=== PATIENT | female | born 1940 | race Caucasian/White ===

== ENCOUNTER 2016-11-30 20:22 | Outpatient (CLI) | payer MEDICARE ==
[~2016-11-30 20:22] MED LIST: ALPR0.254 PO; AMOX500C2 PO; ASP81TEC PO; ASPI-999 PO; BENA20TA72 PO; BETA15CR37 TOP; CALC-694 PO; CEPH500C; CLD600T PO; DCS100C PO; DIAZ2TAB2 PO; DIGO125T PO; DILT120C53 PO; DILT240C PO; DLT120CCR PO; DOXY100T2 PO; ENAL10TA PO; ENAL2.5T PO; ENAL20TA PO; FURO40TA4 PO; HCT25T PO; HYDR-1231 PO; KCL20TCR PO; LORA10TA7 PO; MECL-124 PO; METO100T5 PO; METO50TA2 PO; MULT-1029 PO; MULT-358 PO; ONDA4TAB11 PO; POLY17PO23 GT; POTA20TA15 PO; PRAV40TA2 PO; PRM25T PO; SERT25TA5 PO; SIMV40TA4 PO; TR1C15 TOP; TRAM50TA2 PO; TRAZ-28 PO; WRF2.5T PO
== END 2016-12-01 06:20 | disposition home or self-care (01) ==
LOC: SLEEP 20:22
PROVIDERS: ATTEND Nurse Practitioner Family
DX: G47.33 Obstructive sleep apnea (adult) (pediatric) (principal); G47.36 Sleep related hypoventilation in conditions classified elsewhere; I47.9 Paroxysmal tachycardia, unspecified
CPT/HCPCS: 95810

== ENCOUNTER 2017-03-10 12:39 | Emergency (ER) | payer MEDICARE ==
[~2017-03-10] VITALS: Ht 170.2 cm; Wt 78.5 kg
[2017-03-10] MEDS ORDERED: TETANUS,DIPTH,PERTUSS P/F (BOOSTRIX) 0.5 ML VIAL IM ONE (13:45)
--- NOTE | 2017-03-10 13:47 | ED Fall/Injury ---
General Chief Complaint: Trauma-Non Activation Stated Complaint: FELL,LT SHOULDER INJ,ARM ABRASION,HIT HEAD Nursing Triage Note: PT. WALKING DOG ET DOG BRUSHED AGAINST PT. PT. LOST BALANCE ET FELL ON CONCRETE. ABRASION NOTED ABOVE L-KNEE, SKIN TEAR TO L-FA. DRY DSG TO L-FA. BUMP. NOTED TO L-OCCIPITAL. PT. C/O L-SHOULDER PAIN. Source: patient Exam Limitations: no limitations History of Present Illness Time seen by provider: 13:44 Initial Comments To ER with reports of a fall. She was walking her dog when she tripped and fell landing on her left side. She did strike the left side of her head. There is a small hematoma to the left side of the occiput. No loss of consciousness. No headache nausea vomiting dizziness or vision changes. She reports pain to the area between the base of her neck and the left shoulder. There is no midline cervical spine pain. She has an abrasion to the left knee, skin tear to the left elbow. Tetanus is not up-to-date. No chest abdomen or pelvis injury Occurred: just prior to arrival Severity: mild Context: tripped Loss of Consciousness: no loss of consciousness Associated Symptoms (Fall): No Abdominal Pain, No Chest Pain, No Confusion, No Dizziness, No Headache, No Neck Pain Allergies and Home Medications Allergies Coded Allergies: tolmetin (Verified Allergy, Unknown, 08/19/15) Home Medications Alprazolam 0.25 Mg Tablet, 0.25 MG PO BID PRN for ANXIETY, (Reported) Aspirin 81 Mg Tab.chew, 81 MG PO DAILY, #90 Ref 3 Prescribed by: RUBI BERMUDEZ on 07/14/16 0959 Betamethasone/Propylene Glyc 15 Gm Cream..g., TOP BID PRN for ITCHING, (Reported ) Calcium Carbonate/Vitamin D3 1 Each Tablet, 1 TAB PO BID, (Reported) Diltiazem HCl 120 Mg Cap.er.24h, 120 MG PO DAILY, (Reported) Enalapril Maleate 20 Mg Tablet, 20 MG PO BID, (Reported) Furosemide 40 Mg Tablet, 40 MG PO DAILY, (Reported) Furosemide 40 Mg Tablet, 40 MG PO DAILY PRN for 2LB WEIGHT GAIN IN 24 HOURS, ( Reported) TAKES AN ADDITIONAL TABLET DAILY IF MORE THAN A 2 POUND WEIGHT GAIN IN A 24 HOURS PERIOD Loratadine 10 Mg Tablet, 10 MG PO DAILY, (Reported) Metoprolol Tartrate 50 Mg Tablet, 50 MG PO BID, (Reported) Mu-Vits-Min Th/Lycopene/Lutein 1 Each Tablet, 1 TAB PO DAILY, (Reported) Potassium Chloride 20 Meq Tab.er.prt, 20 MEQ PO BID, (Reported) Pravastatin Sodium 40 Mg Tablet, 40 MG PO HS, (Reported) Sertraline HCl 25 Mg Tablet, 25 MG PO DAILY, (Reported) Tramadol HCl 50 Mg Tablet, 50 MG PO BID PRN for PAIN, (Reported) Trazodone HCl 50 Mg Tablet, 25-50 MG PO HS PRN for SLEEP, (Reported) TAKES 1/2 TO 1 (50MG) TABLET Constitutional: see HPI Eyes: No Symptoms Reported Ears, Nose, Mouth, Throat: no symptoms reported Respiratory: no symptoms reported Cardiovascular: no symptoms reported Genitourinary: no symptoms reported Musculoskeletal: no symptoms reported Skin: no symptoms reported Psychiatric/Neurological: No Symptoms Reported Past Knkthpj-Qxqpid-Qivuyg Hx Patient Social History Alcohol Use: Denies Use Recreational Drug Use: No Smoking Status: Never a Smoker Recent Foreign Travel: No Contact w/Someone Who Travel: No Recent Infectious Disease Expo: No Recent Hopitalizations: Yes Immunizations Up To Date Tetanus Booster (TDap): Unknown PED Vaccines UTD: No Date of Pneumonia Vaccine: Apr 16, 2011 Date of Influenza Vaccine: May 04, 2016 Surgeries HX Surgeries: Yes (HYST,CHOLY) Surgeries: Gallbladder, Hysterectomy Respiratory Hx Respiratory Disorders: No Cardiovascular Hx Cardiac Disorders: Yes Cardiac Disorders: Atrial Fibrillation, Coronary Artery Disease Neurological Hx Neurological Disorders: No Reproductive System Hx Reproductive Disorders: No Sexually Transmitted Disease: No HIV/AIDS: No Genitourinary Hx Genitourinary Disorders: No Gastrointestinal Hx Gastrointestinal Disorders: No Musculoskeletal Hx Musculoskeletal Disorders: Yes Musculoskeletal Disorders: Chronic Back Pain Endocrine Hx Endocrine Disorders: No HEENT HX ENT Disorders: Yes HEENT Disorders: Cataract Cancer Hx Cancer: No Psychosocial Hx Psychiatric Problems: Yes Behavioral Health Disorders: Anxiety, Depression Integumentary HX Skin/Integumentary Disorder: No Blood Transfusions Hx Blood Disorders: No Adverse Reaction to a Blood Tr: No Family Medical History Significant Family History: No Pertinent Family Hx Family Medial History: Diabetes mellitus 19 MOTHER G8 BROTHER G8 SISTER G8 SISTER Physical Exam Vital Signs Vital Sign - Last 12Hours 03/10/17 12:50 Temp 97.9 Pulse 74 Resp 18 B/P (MAP) 161/77 Pulse Ox 97 O2 Delivery Room Air Capillary Refill : Less Than 3 Seconds General Appearance: WD/WN, no apparent distress, other (ambulatory to room 6) HEENT: PERRL/EOMI, normal ENT inspection Neck: non-tender, full range of motion Respiratory: no respiratory distress, no accessory muscle use Gastrointestinal: normal bowel sounds, non tender, soft Extremities: normal range of motion, non-tender Neurologic/Psychiatric: alert, normal mood/affect, oriented x 3 Skin: normal color, warm/dry, other (small nickel sized area of superficial skin tear to the left dorsal elbow. She maintains full active range of motion of the elbow without pain. No swelling or ecchymosis. Abrasion to the anterior left knee. Full range of motion of the knee without pain and full extension abilities.) Ken Coma Score Best Eye Response: (4) Open Spontaneously Best Verbal Response: (5) Oriented Best Motor Response: (6) Obeys Commands Ken Total: 15 Progress/Results/Core Measures Results/Orders My Orders Orders - SAMUEL DELCID APRN Shoulder, Left, 3 Views (03/10/17 13:43) Ct Head Wo (03/10/17 13:43) Dipht,Pertuss(Acell),Tet Adult (Boostrix (03/10/17 13:45) Medications Given in ED Current Medications Medications Dose Ordered Sig/Tc Route Start Time Stop Time Status Last Admin Dose Admin Diphtheria/ Tetanus/Acell Pertussis 0.5 ml ONCE ONCE IM 03/10/17 13:45 03/10/17 13:46 DC 03/10/17 14:51 0.5 ML Vital Signs/I&O Vital Sign - Last 12Hours 03/10/17 12:50 Temp 97.9 Pulse 74 Resp 18 B/P (MAP) 161/77 Pulse Ox 97 O2 Delivery Room Air Blood Pressure Mean: 105 Diagnostic Imaging Diagonstic Imaging: CT Comments NAME: FARSHAD JAIN [facility] REC#: [id number] PT STATUS: REG ER : 1940 PHYSICIAN: SAMUEL DELCID APRN ADMIT DATE: 03/10/17/ER Draft Date of Exam:08/09/17 CT HEAD WO INDICATION: Status post fall with head injury. Noncontrast brain CT is performed. There is a small amount of subarachnoid hemorrhage visualized over the left frontotemporal convexity, extending into the sylvian fissure. There is no subdural or epidural component. There is mild atrophic change. There is no midline shift or mass effect. Calvarial windows are unremarkable. IMPRESSION: Subarachnoid hemorrhage is visualized over the left frontotemporal region as above. There is no calvarial fracture. Report was faxed to the [facility], [place] ER at 3:23 p.m., by noris (for MK). Dictated on workstation # [id number] Dict: 03/10/17 1445 Trans: 03/10/17 1524 NORIS [id number] Interpreted by: SAMARA OATES MD Electronically signed by: Departure Communication Progress Notes [id number] did discuss the case with Dr. Mendoza. This treatment plan here is dependent upon her comfort level. This is not something she would operate on, typically management for this involves observation and repeat CT scan in about 12 hours to ensure stability or improvement in the size of the bleed. Given her injury that preceded this (being pulled over by her dog and striking her head on the concrete) is would support this subarachnoid to be traumatic in nature and not aneurysmal. Could be transferred later for any decline in neurologic function as she is currently with a GCS of 15, no headache nausea vomiting dizziness or vision changes. She is a little tired she states. I will discuss with trauma surgeon Dr. Luna [id number]-Dr Luna requests transfer to facility with Neuro services. Landon pending. Impression Impression: Primary Impression: Left subarachnoid hemorrhage Additional Impressions: Fall at home Scalp contusion Abrasion Disposition: 01 HOME, SELF-CARE Condition: Stable Departure-Patient Inst. Decision time for Depature: 13:47 Referrals: REY AGUILAR DO (PCP/Family) Primary Care Physician Patient Instructions: Contusion (DC) Add. Discharge Instructions: 1. Return to ER for any concerns 2. Follow-up with your doctor later this week for recheck 3. All discharge instructions reviewed with patient and/or family. Voiced understanding. SAMUEL DELCID APRN Mar 10, 2017 13:47
--- NOTE | 2017-03-10 14:24 | Diagnostic Imaging Report ---
Three views of the left shoulder. INDICATION: Fall. FINDINGS: There is no fracture, dislocation, or radiopaque foreign body. There is inferior osteophyte formation at the humeral head and small inferior osteophytes at the acromioclavicular joint. 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 Dictated by: Dictated on workstation # [id number]
--- NOTE | 2017-03-10 15:24 | Diagnostic Imaging Report ---
INDICATION: Status post fall with head injury. Noncontrast brain CT is performed. There is a small amount of subarachnoid hemorrhage visualized over the left frontotemporal convexity, extending into the sylvian fissure. There is no subdural or epidural component. There is mild atrophic change. There is no midline shift or mass effect. Calvarial windows are unremarkable. IMPRESSION: Subarachnoid hemorrhage is visualized over the left frontotemporal region as above. There is no calvarial fracture. Report was faxed to the [facility] ER at 3:23 p.m., by brant (for NEERU). Dictated by: Dictated on workstation # [id number]
[2017-03-10 16:46] VITALS: BP 157/71
== END 2017-03-10 16:46 | disposition home or self-care (01) ==
LOC: EDUNIT# 12:39 → ER 12:42
DX: S06.6X0A Traumatic subarachnoid hemorrhage without loss of consciousness, initial encounter (principal); S00.03XA Contusion of scalp, initial encounter; S80.212A Abrasion, left knee, initial encounter; S50.312A Abrasion of left elbow, initial encounter; F32.9 Major depressive disorder, single episode, unspecified; F41.9 Anxiety disorder, unspecified; I48.91 Unspecified atrial fibrillation; I25.10 Atherosclerotic heart disease of native coronary artery without angina pectoris; Z79.82 Long term (current) use of aspirin; Z90.49 Acquired absence of other specified parts of digestive tract; Z90.710 Acquired absence of both cervix and uterus; W01.198A Fall on same level from slipping, tripping and stumbling with subsequent striking against other object, initial encounter; Y93.K1 Activity, walking an animal
CPT/HCPCS: 70450; 73030; 90471; 90715

== ENCOUNTER → 2018-11-15 | Outpatient (CLI) | payer MEDICARE ==
[~2018-11-15] MED LIST changes: +METO50TA15 PO; -METO50TA2 PO; +TRAZ-189 PO; -TRAZ-28 PO
== END ==
LOC: CARD 09:43
PROVIDERS: ATTEND Nurse Practitioner Family
DX: R07.9 Chest pain, unspecified (principal); I25.10 Atherosclerotic heart disease of native coronary artery without angina pectoris; I48.91 Unspecified atrial fibrillation; I77.9 Disorder of arteries and arterioles, unspecified; E78.5 Hyperlipidemia, unspecified; I10 Essential (primary) hypertension; G47.33 Obstructive sleep apnea (adult) (pediatric)
CPT/HCPCS: 93225; 93226

== ENCOUNTER → 2018-11-29 | Outpatient (CLI) | payer MEDICARE ==
[~2018-11-29] VITALS: Ht 170.2 cm; Wt 78.9 kg
[~2018-11-29] MED LIST changes: +CATHETER FLUSH 10 ML SYR IV PRN; +REGADENOSON 0.4 MG/5 ML SYR (LEXISCAN) IV ONE
[2018-11-29 09:02] VITALS: BP 165/66
[2018-11-29 09:03] VITALS: BP 155/79
== END ==
LOC: CARD 07:09
PROVIDERS: ATTEND Nurse Practitioner Family
DX: R07.89 Other chest pain (principal); I25.10 Atherosclerotic heart disease of native coronary artery without angina pectoris; I48.0 Paroxysmal atrial fibrillation; I77.9 Disorder of arteries and arterioles, unspecified; E78.5 Hyperlipidemia, unspecified; I10 Essential (primary) hypertension; G47.33 Obstructive sleep apnea (adult) (pediatric)
CPT/HCPCS: 78452; 93017

== ENCOUNTER 2019-01-05 00:51 | Observation (INO) | payer MEDICARE ==
[~2019-01-05] VITALS: Ht 170.2 cm; Wt 78.0 kg
[2019-01-05] VITALS (9 sets, daily range): BP systolic 113–148; BP diastolic 42–72
[~2019-01-05 00:51] MED LIST changes: -CATHETER FLUSH 10 ML SYR IV PRN; -REGADENOSON 0.4 MG/5 ML SYR (LEXISCAN) IV ONE; -TRAZ-189 PO; +TRAZ-222 PO
[2019-01-05] MEDS ORDERED: ASPIRIN 81 MG CHEW (CHILDREN'S ASA) PO ONE (01:00)
--- OUTSIDE RECORDS SUMMARY | 2019-01-05 01:02 | XMS REPORT | Continuity of Care Document ---
Author Organization Unknown Address Unknown Allergies Active Description Code Type Severity Reaction Onset Reported/Identified Relationship to Patient Clinical Status Yes No Known Drug Allergies [id number] Drug Allergy Unknown N/A 10/11/2010 Yes tolmetin [id number] Drug Allergy Unknown N/A 08/19/2015 Medications There is no data. Problems Date Dx Coded Attending Type Code Diagnosis Diagnosed By 10/11/2010 Ot 386.11 10/11/2010 Ot 780.4 10/22/2010 Ot 401.9 10/22/2010 Ot 873.41 10/22/2010 Ot 959.01 10/22/2010 Ot E000.8 10/22/2010 Ot E849.8 10/22/2010 Ot E888.1 10/22/2010 Ot V06.1 09/06/2011 Ot 920 CONTUSION FACE/SCALP/NCK 09/06/2011 Ot 959.01 HEAD INJURY, NOS 09/06/2011 Ot E000.0 CIVILIAN ACTIVITY DONE FOR INCOME OR PAY 09/06/2011 Ot E849.7 ACCID IN RESIDENT INSTIT 09/06/2011 Ot E888.1 FALL STRIKING OBJECT NEC 11/02/2011 Ot 272.4 HYPERLIPIDEMIA NEC/NOS 11/02/2011 Ot 276.8 HYPOPOTASSEMIA 11/02/2011 Ot 401.9 HYPERTENSION NOS 11/02/2011 Ot 427.31 ATRIAL FIBRILLATION 11/02/2011 Ot 427.32 ATRIAL FLUTTER 11/02/2011 Ot 427.89 CARDIAC DYSRHYTHMIAS NEC 11/02/2011 Ot 719.41 JOINT PAIN-SHLDER 11/02/2011 Ot 786.50 CHEST PAIN NOS 12/07/2011 Ot 427.31 ATRIAL FIBRILLATION 12/07/2011 Ot V58.61 ANTICOAGULANTS,LT,CURRENT USE 02/04/2012 Ot 427.31 ATRIAL FIBRILLATION 05/08/2012 Ot 427.31 ATRIAL FIBRILLATION 03/30/2013 SHAWN DEL TORO Ot 427.31 ATRIAL FIBRILLATION 03/30/2013 SHAWN DEL TORO Ot 785.1 PALPITATIONS 01/02/2014 SAMUEL DELCID CALIBRATION TESTER Ot 802.0 NASAL BONE FX-CLOSED 01/02/2014 SAMUEL DELCID CALIBRATION TESTER Ot E029.9 OTHER ACTIVITY 01/02/2014 SAMUEL DELCID CALIBRATION TESTER Ot E849.0 ACCIDENT IN HOME 01/02/2014 SAMUEL DELCID CALIBRATION TESTER Ot E884.9 FALL-1 LEVEL TO OTH NEC 05/04/2014 SAMUEL DELCID CALIBRATION TESTER Ot 401.9 HYPERTENSION NOS 05/04/2014 SAMUEL DELCID CALIBRATION TESTER Ot 780.99 OTHER GENERAL SYMPTOMS NOS 11/01/2014 Ot 401.9 11/01/2014 Ot 427.31 11/01/2014 Ot 780.79 11/01/2014 Ot 786.05 11/05/2014 Ot 427.31 11/05/2014 Ot 427.31 11/05/2014 Ot 785.1 11/05/2014 KATEY GERARDO, BECKY Gu Ot 786.50 CHEST PAIN NOS 12/29/2014 REY AGUILAR DO Ot 785.6 12/29/2014 REY AGUILAR DO Ot 786.6 01/16/2015 REY AGUILAR DO Ot 785.6 01/16/2015 REY AGUILAR DO Ot 786.6 05/07/2015 Ot 401.9 05/07/2015 Ot 427.31 05/07/2015 Ot 782.3 05/07/2015 Ot 780.79 05/07/2015 Ot 787.02 05/07/2015 Ot 429.9 05/07/2015 Ot V58.69 05/07/2015 Ot 793.82 05/07/2015 Ot V76.12 05/07/2015 Ot 427.31 05/07/2015 Ot 427.31 05/07/2015 Ot 785.1 05/07/2015 Ot 401.9 05/07/2015 Ot 427.31 05/07/2015 Ot 780.79 05/07/2015 Ot 786.05 05/07/2015 REY AGUILAR DO Ot 785.6 05/07/2015 REY AGUILAR DO Ot 786.6 05/28/2015 REY AGUILAR DO Ot R07.9 08/19/2015 Ot 427.31 08/19/2015 Ot 427.31 08/19/2015 Ot 785.1 08/21/2015 GELLENDER DO, REY Gu Ot D72.829 08/21/2015 GELLENDER DO, REY Gu Ot I25.10 08/21/2015 GELLENDER DO, REY A Ot I48.91 08/21/2015 GELLENDER DO, REY Gu Ot L03.115 08/21/2015 GELLENDER DO, REY A Ot N39.0 08/26/2015 GELLENDER DO, REY A Ot B35.1 08/26/2015 GELLENDER DO, REY Gu Ot D72.829 08/26/2015 GELLENDER DO, REY A Ot G62.9 08/26/2015 GELLENDER DO, REY A Ot I10 08/26/2015 GELLENDER DO, REY A Ot I25.10 08/26/2015 GELLENDER DO, REY Gu Ot I48.91 08/26/2015 GELLENDER DO, REY Gu Ot L03.115 08/26/2015 GELLENDER DO, REY Gu Ot M20.40 08/26/2015 GELLENDER DO, REY Gu Ot N39.0 08/26/2015 GELLENDER DO, REY A Ot B35.1 08/26/2015 GELLENDER DO, REY A Ot D72.829 08/26/2015 GELLENDER DO, REY A Ot G62.9 08/26/2015 GELLENDER DO, REY Gu Ot I10 08/26/2015 GELLENDER DO, REY Gu Ot I25.10 08/26/2015 GELLENDER DO, REY A Ot I48.91 08/26/2015 GELLENDER DO, REY A Ot L03.115 08/26/2015 GELLENDER DO, REY Gu Ot M20.40 08/26/2015 GELLENDER DO, REY A Ot N39.0 08/26/2015 GELLENDER DO, REY A Ot B35.1 08/26/2015 GELLENDER DO, REY A Ot D72.829 08/26/2015 GELLENDER DO, REY A Ot G62.9 08/26/2015 GELLENDER DO, REY A Ot I10 08/26/2015 GELLENDER DO, REY A Ot I25.10 08/26/2015 GELLENDER DO, REY A Ot I48.91 08/26/2015 GELLENDER DO, REY A Ot L03.115 08/26/2015 GELLENDER DO, REY A Ot M20.40 08/26/2015 GELLENDER DO, REY A Ot N39.0 08/26/2015 GELLENDER DO, REY A Ot B35.1 08/26/2015 GELLENDER DO, REY A Ot D72.829 08/26/2015 GELLENDER DO, REY A Ot G62.9 08/26/2015 GELLENDER DO, REY A Ot I10 08/26/2015 GELLENDER DO, REY A Ot I25.10 08/26/2015 GELLENDER DO, REY A Ot I48.91 08/26/2015 GELLENDER DO, REY A Ot L03.115 08/26/2015 GELLENDER DO, REY A Ot M20.40 08/26/2015 GELLENDER DO, REY A Ot N39.0 08/27/2015 GELLENDER DO, REY A Ot B35.1 08/27/2015 GELLENDER DO, REY A Ot D72.829 08/27/2015 GELLENDER DO, REY A Ot G62.9 08/27/2015 GELLENDER DO, REY A Ot I10 08/27/2015 GELLENDER DO, REY A Ot I25.10 08/27/2015 GELLENDER DO, REY A Ot I48.91 08/27/2015 GELLENDER DO, REY A Ot L03.115 08/27/2015 GELLENDER DO, REY A Ot M20.40 08/27/2015 GELLENDER DO, REY A Ot N39.0 08/27/2015 GELLENDER DO, REY A Ot B35.1 08/27/2015 GELLENDER DO, REY A Ot D72.829 08/27/2015 GELLENDER DO, REY A Ot G62.9 08/27/2015 GELLENDER DO, REY A Ot I10 08/27/2015 GELLENDER DO, REY A Ot I25.10 08/27/2015 GELLENDER DO, REY A Ot I48.91 08/27/2015 GELLENDER DO, REY A Ot L03.115 08/27/2015 GELLENDER DO, REY A Ot M20.40 08/27/2015 GELLENDER DO, REY A Ot N39.0 08/27/2015 GELLENDER DO, REY Gu Ot B35.1 08/27/2015 GELLENDER DO, REY Gu Ot D72.829 08/27/2015 GELLENDER DO, REY Gu Ot G62.9 08/27/2015 GELLENDER DO, REY Gu Ot I10 08/27/2015 GELLENDER DO, REY Gu Ot I25.10 08/27/2015 GELLENDER DO, REY Gu Ot I48.91 08/27/2015 GELLENDER DO, REY Gu Ot L03.115 08/27/2015 GELLENDER DO, REY Gu Ot M20.40 08/27/2015 GELLENDER DO, REY Gu Ot N39.0 08/27/2015 GELLENDER DO, REY Gu Ot B35.1 08/27/2015 GELLENDER DO, REY Gu Ot D72.829 08/27/2015 GELLENDER DO, REY Gu Ot G62.9 08/27/2015 GELLENDER DO, REY Gu Ot I10 08/27/2015 GELLENDER DO, REY Gu Ot I25.10 08/27/2015 GELLENDER DO, REY Gu Ot I48.91 08/27/2015 GELLENDER DO, REY Gu Ot L03.115 08/27/2015 GELLENDER DO, REY Gu Ot M20.40 08/27/2015 GELLENDER DO, RYE Gu Ot N39.0 08/30/2015 GELLENDER DO, REY Gu Ot B35.1 TINEA UNGUIUM 08/30/2015 GELLENDER DO, REY Gu Ot E78.5 HYPERLIPIDEMIA, UNSPECIFIED 08/30/2015 GELLENDER DO, REY Gu Ot G62.9 POLYNEUROPATHY, UNSPECIFIED 08/30/2015 GELLENDER DO, REY Gu Ot I10 ESSENTIAL (PRIMARY) HYPERTENSION 08/30/2015 GELLENDER DO, REY Gu Ot I25.10 ATHSCL HEART DISEASE OF [place] CORONARY 08/30/2015 GELLENDER DO, REY Gu Ot I48.91 UNSPECIFIED ATRIAL FIBRILLATION 08/30/2015 GELLENDER DO, REY Gu Ot L03.115 CELLULITIS OF RIGHT LOWER LIMB 08/30/2015 GELLENDER DO, REY Riccardo Ot L13.9 BULLOUS DISORDER, UNSPECIFIED 08/30/2015 GELLENDER DO, REY Gu Ot M20.40 OTHER HAMMER TOE(S) (ACQUIRED), UNSPECIF 08/30/2015 GELLENDER DO, REY Gu Ot N39.0 URINARY TRACT INFECTION, SITE NOT SPECIF 08/30/2015 GELLENDER DO, REY Gu Ot R53.1 WEAKNESS 08/30/2015 GELLENDER DO, REY Gu Ot R60.9 EDEMA, UNSPECIFIED 09/06/2015 GELLENDER DO, REY Gu Ot B35.1 TINEA UNGUIUM 09/06/2015 GELLENDER DO, REY Gu Ot E78.5 HYPERLIPIDEMIA, UNSPECIFIED 09/06/2015 GELLENDER DO, REY Gu Ot G62.9 POLYNEUROPATHY, UNSPECIFIED 09/06/2015 GELLENDER DO, REY Gu Ot I10 ESSENTIAL (PRIMARY) HYPERTENSION 09/06/2015 GELLENDER DO, REY Gu Ot I25.10 ATHSCL HEART DISEASE OF [place] CORONARY 09/06/2015 GELLENDER DO, REY Gu Ot I48.91 UNSPECIFIED ATRIAL FIBRILLATION 09/06/2015 GELLENDER DO, REY Gu Ot L03.115 CELLULITIS OF RIGHT LOWER LIMB 09/06/2015 GELLENDER DO, REY Gu Ot M20.40 OTHER HAMMER TOE(S) (ACQUIRED), UNSPECIF 09/06/2015 GELLENDER DO, REY Gu Ot R07.89 OTHER CHEST PAIN 09/06/2015 GELLENDER DO, REY Gu Ot R53.82 CHRONIC FATIGUE, UNSPECIFIED 09/06/2015 GELLENDER DO, REY Gu Ot R60.0 LOCALIZED EDEMA 09/12/2015 GELLENDER DO, REY Gu Ot B35.1 09/12/2015 GELLENDER DO, REY Gu Ot E78.5 09/12/2015 GELLENDER DO, REY Gu Ot G62.9 09/12/2015 GELLENDER DO, REY Gu Ot I10 09/12/2015 GELLENDER DO, REY Gu Ot I25.10 09/12/2015 GELLENDER DO, REY Gu Ot I48.91 09/12/2015 GELLENDER DO, REY Gu Ot L03.115 09/12/2015 GELLENDER DO, REY Gu Ot L13.9 09/12/2015 GELLENDER DO, REY Gu Ot M20.40 09/12/2015 GELLENDER DO, REY Gu Ot N39.0 09/12/2015 GELLENDER DO, REY Gu Ot R53.1 09/12/2015 GELLENDER DO, REY Gu Ot R60.9 09/12/2015 GELLENDER DO, REY Gu Ot B35.1 09/12/2015 GELLENDER DO, REY Gu Ot E78.5 09/12/2015 GELLENDER DO, REY Gu Ot G62.9 09/12/2015 GELLENDER DO, REY Gu Ot I10 09/12/2015 GELLENDER DO, REY Gu Ot I25.10 09/12/2015 GELLENDER DO, REY Gu Ot I48.91 09/12/2015 GELLENDER DO, REY Gu Ot L03.115 09/12/2015 GELLENDER DO, REY Gu Ot L13.9 09/12/2015 GELLENDER DO, REY Gu Ot M20.40 09/12/2015 GELLENDER DO, REY Gu Ot N39.0 09/12/2015 GELLENDER DO, REY Gu Ot R53.1 09/12/2015 GELLENDER DO, REY Gu Ot R60.9 09/30/2015 NEVIN GERARDO, FEMI Carbajal Ot 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 09/30/2015 NEVIN GERARDO, FEMI Carbajal Ot L20.9 ATOPIC DERMATITIS, UNSPECIFIED 09/30/2015 NEVIN GERARDO, FEMI Carbajal Ot L97.221 NON-PRS CHRONIC ULCER OF LEFT CALF LIMIT 02/21/2016 SAMUEL DELCID APRN Ot M47.892 OTHER SPONDYLOSIS, CERVICAL REGION 02/21/2016 SAMUEL DELCID APRN Ot S00.83XA CONTUSION OF OTHER PART OF HEAD, INITIAL 02/21/2016 SAMUEL DELCID APRN Ot W01.0XXA FALL SAME LEV FROM SLIP/TRIP W/O STRIKE 02/21/2016 SAMUEL DELCID APRN Ot Y92.[address] IN JAIL PLACE 02/21/2016 SAMUEL DELCID APRN Ot Y99.0 CIVILIAN ACTIVITY DONE FOR INCOME OR PAY 02/22/2016 MEL SMITH DO Ot R22.41 LOCALIZED SWELLING, MASS AND LUMP, RIGHT 02/22/2016 MEL SMITH DO Ot S80.01XA CONTUSION OF RIGHT KNEE, INITIAL ENCOUNT 02/22/2016 MEL SMITH DO Ot W01.0XXA FALL SAME LEV FROM SLIP/TRIP W/O STRIKE 02/22/2016 MEL SMITH DO Ot Y92.[address] JAIL PLACE 02/22/2016 MEL SMITH DO Ot Y99.0 CIVILIAN ACTIVITY DONE FOR INCOME OR PAY 02/24/2016 SAMUEL DELCID APRN Ot M47.892 OTHER SPONDYLOSIS, CERVICAL REGION 02/24/2016 SAMUEL DELCID APRN Ot S00.83XA CONTUSION OF OTHER PART OF HEAD, INITIAL 02/24/2016 SAMUEL DELCID APRN Ot W01.0XXA FALL SAME LEV FROM SLIP/TRIP W/O STRIKE 02/24/2016 SAMUEL DELCID APRN Ot Y92.[address] IN JAIL PLACE 02/24/2016 SAMUEL DELCID APRN Ot Y99.0 CIVILIAN ACTIVITY DONE FOR INCOME OR PAY 02/24/2016 MEL SMITH DO Ot R22.41 LOCALIZED SWELLING, MASS AND LUMP, RIGHT 02/24/2016 MEL SMITH DO Ot S80.01XA CONTUSION OF RIGHT KNEE, INITIAL ENCOUNT 02/24/2016 MEL SMITH DO Ot W01.0XXA FALL SAME LEV FROM SLIP/TRIP W/O STRIKE 02/24/2016 MEL SMITH DO Ot Y92.[address] IN JAIL PLACE 02/24/2016 MEL SMITH DO Ot Y99.0 CIVILIAN ACTIVITY DONE FOR INCOME OR PAY 06/15/2016 Ot 401.9 HYPERTENSION NOS 06/15/2016 Ot 427.31 ATRIAL FIBRILLATION 06/15/2016 Ot 782.3 EDEMA 06/15/2016 Ot 780.79 OTH MALAISE FATIGUE 06/15/2016 Ot 787.02 NAUSEA ALONE 06/15/2016 Ot 429.9 HEART DISEASE NOS 06/15/2016 Ot V58.69 OTH MED,LT,CURRENT USE 06/15/2016 Ot 793.82 INCONCLUSIVE MAMMOGRAM 06/15/2016 Ot V76.12 OTH SCREEN MAMMO- MALIGN NEOPLASM OF DAR 06/15/2016 Ot 427.31 ATRIAL FIBRILLATION 06/15/2016 Ot 427.31 ATRIAL FIBRILLATION 06/15/2016 Ot 785.1 PALPITATIONS 06/15/2016 Ot 401.9 HYPERTENSION NOS 06/15/2016 Ot 427.31 ATRIAL FIBRILLATION 06/15/2016 Ot 780.79 OTH MALAISE FATIGUE 06/15/2016 Ot 786.05 SHORTNESS OF BREATH 06/15/2016 REY AGUILAR DO Ot 785.6 ENLARGEMENT LYMPH NODES 06/15/2016 REY AGUILAR DO Ot 786.6 CHEST SWELLING/MASS/LUMP 06/15/2016 REY AGUILAR DO Ot R07.9 CHEST PAIN, UNSPECIFIED 06/17/2016 LARA GERARDO FACC, ALI FACP CCDS Ot E78.4 OTHER HYPERLIPIDEMIA 06/17/2016 LARA GRESHAMC, ALI FACP CCDS Ot I10 ESSENTIAL (PRIMARY) HYPERTENSION 06/17/2016 LARA GRESHAMC, ALI FACP CCDS Ot I25.10 ATHSCL HEART DISEASE OF [place] CORONARY 06/17/2016 LARA GERARDO FACC, ALI FACP CCDS Ot I48.0 PAROXYSMAL ATRIAL FIBRILLATION 06/17/2016 LARA GERARDO FACC, ALI FACP CCDS Ot R00.2 PALPITATIONS 06/17/2016 LAAR GERARDO FACC, ALI FACP CCDS Ot R06.02 SHORTNESS OF BREATH 06/17/2016 LARA GERARDO FACC, ALI FACP CCDS Ot R53.83 OTHER FATIGUE 06/24/2016 LARA GERARDO FACC, ALI FACP CCDS Ot E78.4 OTHER HYPERLIPIDEMIA 06/24/2016 LARA GERARDO FACC, ALI FACP CCDS Ot I10 ESSENTIAL (PRIMARY) HYPERTENSION 06/24/2016 LARA GERARDO FACC, ALI FACP CCDS Ot I25.10 ATHSCL HEART DISEASE OF [place] CORONARY 06/24/2016 LARA GERARDO FACC, ALI FACP CCDS Ot I48.0 PAROXYSMAL ATRIAL FIBRILLATION 06/24/2016 LARA GERARDO FACC, ALI FACP CCDS Ot R00.2 PALPITATIONS 06/24/2016 LARA GRESHAMC, ALI FACP CCDS Ot R06.02 SHORTNESS OF BREATH 06/24/2016 LARA GERARDO FACC, ALI FACP CCDS Ot R53.83 OTHER FATIGUE 06/29/2016 LARA GERARDO FACC, ALI FACP CCDS Ot E78.4 OTHER HYPERLIPIDEMIA 06/29/2016 LARA GRESHAMC, ALI FACP CCDS Ot I10 ESSENTIAL (PRIMARY) HYPERTENSION 06/29/2016 LARA GERARDO FACC, ALI FACP CCDS Ot I25.10 ATHSCL HEART DISEASE OF [place] CORONARY 06/29/2016 LARA GERARDO FAC, ALI FACP CCDS Ot I48.0 PAROXYSMAL ATRIAL FIBRILLATION 06/29/2016 LARA GERARDO FACC, ALI FACP CCDS Ot R00.2 PALPITATIONS 06/29/2016 LARA GERARDO FACC, ALI FACP CCDS Ot R06.02 SHORTNESS OF BREATH 06/29/2016 LARA GERARDO FACC, ALI FACP CCDS Ot R53.83 OTHER FATIGUE 07/06/2016 MILDRED ASKEW MD Ot I50.43 ACUTE ON CHRONIC COMBINED SYSTOLIC AND D 07/06/2016 MILDRED ASKEW MD Ot R06.00 DYSPNEA, UNSPECIFIED 07/06/2016 MILDRED ASKEW MD Ot R60.0 LOCALIZED EDEMA 07/06/2016 MILDRED ASKEW MD Ot Z79.82 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 07/06/2016 MILDRED ASKEW MD Ot Z79.899 OTHER DETENTION (CURRENT) DRUG THERAPY 07/07/2016 LARA GERARDO [facility], ALI FACP CCDS Ot E78.4 OTHER HYPERLIPIDEMIA 07/07/2016 LARA GERARDO FAC, ALI FACP CCDS Ot I10 ESSENTIAL (PRIMARY) HYPERTENSION 07/07/2016 LARA GERARDO FAC, ALI FACP CCDS Ot I25.10 ATHSCL HEART DISEASE OF [place] CORONARY 07/07/2016 LARA GERARDO FAC, ALI FACP CCDS Ot I48.0 PAROXYSMAL ATRIAL FIBRILLATION 07/07/2016 LARA GERARDO FAC, ALI FACP CCDS Ot R00.2 PALPITATIONS 07/07/2016 LARA GERARDO FAC, ALI FACP CCDS Ot R06.02 SHORTNESS OF BREATH 07/07/2016 LARA GERARDO [facility], ALI FACP CCDS Ot R53.83 OTHER FATIGUE 07/08/2016 MILDRED ASKEW MD Ot I50.43 ACUTE ON CHRONIC COMBINED SYSTOLIC AND D 07/08/2016 MILDRED ASKEW MD Ot R06.00 DYSPNEA, UNSPECIFIED 07/08/2016 MILDRED ASKEW MD Ot R60.0 LOCALIZED EDEMA 07/08/2016 MILDRED ASKEW MD Ot Z79.82 DETENTION (CURRENT) USE OF ASPIRIN 07/08/2016 MILDRED ASKEW MD Ot Z79.899 OTHER SUPERVISOR PLASMA (CURRENT) DRUG THERAPY 07/08/2016 LARA GERARDO FACC, ALI FACP CCDS Ot E78.4 OTHER HYPERLIPIDEMIA 07/08/2016 LARA GERARDO FACC, ALI FACP CCDS Ot I10 ESSENTIAL (PRIMARY) HYPERTENSION 07/08/2016 LARA GERARDO FACC, ALI FACP CCDS Ot I25.10 ATHSCL HEART DISEASE OF [place] CORONARY 07/08/2016 LARA GERARDO FACC, ALI FACP CCDS Ot I48.0 PAROXYSMAL ATRIAL FIBRILLATION 07/08/2016 LARA GERARDO FACC, ALI FACP CCDS Ot R00.2 PALPITATIONS 07/08/2016 LARA GERARDO FACC, ALI FACP CCDS Ot R06.02 SHORTNESS OF BREATH 07/08/2016 LARA GERARDO FACC, ALI FACP CCDS Ot R53.83 OTHER FATIGUE 07/14/2016 LARA GERARDO FACC, ALI FACP CCDS Ot I10 ESSENTIAL (PRIMARY) HYPERTENSION 07/14/2016 LARA GERARDO FACC, ALI FACP CCDS Ot I25.10 ATHSCL HEART DISEASE OF [place] CORONARY 07/14/2016 LARA GERARDO FACC, ALI FACP CCDS Ot I25.84 CORONARY ATHEROSCLEROSIS DUE TO CALCIFIE 07/14/2016 LARA GERARDO FACC, ALI FACP CCDS Ot I48.0 PAROXYSMAL ATRIAL FIBRILLATION 07/14/2016 LARA GERARDO FACC, ALI FACP CCDS Ot I50.31 ACUTE DIASTOLIC (CONGESTIVE) HEART FAILU 07/14/2016 LARA GERARDO FACC, ALI FACP CCDS Ot I70.0 ATHEROSCLEROSIS OF [place] 07/14/2016 LARA GERARDO FACC, ALI FACP CCDS Ot R07.89 OTHER CHEST PAIN 07/14/2016 LARA GERARDO FACC, ALI FACP CCDS Ot Z79.899 OTHER DETENTION (CURRENT) DRUG THERAPY 07/15/2016 LARA GERARDO FACC, ALI FACP CCDS Ot E78.4 OTHER HYPERLIPIDEMIA 07/15/2016 LARA GERARDO FACC, ALI FACP CCDS Ot I10 ESSENTIAL (PRIMARY) HYPERTENSION 07/15/2016 LARA GERARDO FACC, ALI FACP CCDS Ot I25.10 ATHSCL HEART DISEASE OF [place] CORONARY 07/15/2016 LARA GERARDO FACC ALI FACP CCDS Ot I48.0 PAROXYSMAL ATRIAL FIBRILLATION 07/15/2016 LARA MD FACC, ALI FACP CCDS Ot R00.2 PALPITATIONS 07/15/2016 LARA GERARDO FACC, ALI FACP CCDS Ot R06.02 SHORTNESS OF BREATH 07/15/2016 LARA GERARDO FACC, ALI FACP CCDS Ot R53.83 OTHER FATIGUE 07/15/2016 LARA GERARDO FACC, ALI FACP CCDS Ot E78.4 OTHER HYPERLIPIDEMIA 07/15/2016 LARA GERARDO FACC, ALI FACP CCDS Ot I10 ESSENTIAL (PRIMARY) HYPERTENSION 07/15/2016 LARA GERARDO FACC, ALI FACP CCDS Ot I25.10 ATHSCL HEART DISEASE OF [place] CORONARY 07/15/2016 LARA GERARDO FACC, ALI FACP CCDS Ot I48.0 PAROXYSMAL ATRIAL FIBRILLATION 07/15/2016 LARA GERARDO FACC, ALI FACP CCDS Ot R00.2 PALPITATIONS 07/15/2016 LARA GERARDO FACC, ALI FACP CCDS Ot R06.02 SHORTNESS OF BREATH 07/15/2016 LARA GERARDO FACC, ALI FACP CCDS Ot R53.83 OTHER FATIGUE 07/15/2016 LARA GRESHAMC, ALI FACP CCDS Ot E78.4 OTHER HYPERLIPIDEMIA 07/15/2016 LARA GERARDO FACC, ALI FACP CCDS Ot I10 ESSENTIAL (PRIMARY) HYPERTENSION 07/15/2016 LARA GERARDO FACC, ALI FACP CCDS Ot I25.10 ATHSCL HEART DISEASE OF [place] CORONARY 07/15/2016 LARA GERARDO FACC, ALI FACP CCDS Ot I48.0 PAROXYSMAL ATRIAL FIBRILLATION 07/15/2016 LARA GRESHAMC, ALI FACP CCDS Ot R00.2 PALPITATIONS 07/15/2016 LARA GERARDO FACC, ALI FACP CCDS Ot R06.02 SHORTNESS OF BREATH 07/15/2016 LARA GERARDO FACC, ALI FACP CCDS Ot R53.83 OTHER FATIGUE 07/22/2016 LARA GERARDO FACC, ALI FACP CCDS Ot E78.4 OTHER HYPERLIPIDEMIA 07/22/2016 LARA GERARDO FACC, ALI FACP CCDS Ot I10 ESSENTIAL (PRIMARY) HYPERTENSION 07/22/2016 LARA GERARDO FACC, ALI FACP CCDS Ot I25.10 ATHSCL HEART DISEASE OF [place] CORONARY 07/22/2016 LARA GERARDO FACC, ALI FACP CCDS Ot I48.0 PAROXYSMAL ATRIAL FIBRILLATION 07/22/2016 LARA GERARDO FACC, RUBI FACP CCDS Ot R00.2 PALPITATIONS 07/22/2016 LARA GERARDO FACC, ALI FACP CCDS Ot R06.02 SHORTNESS OF BREATH 07/22/2016 LARA GERARDO FACC, ALI FACP CCDS Ot R53.83 OTHER FATIGUE 08/12/2016 LARA GERARDO FACC, ALI FACP CCDS Ot I10 ESSENTIAL (PRIMARY) HYPERTENSION 08/12/2016 LARA GERARDO FACC, ALI FACP CCDS Ot I25.10 ATHSCL HEART DISEASE OF [place] CORONARY 08/12/2016 LARA GERARDO FACC, ALI FACP CCDS Ot I25.84 CORONARY ATHEROSCLEROSIS DUE TO CALCIFIE 08/12/2016 LARA GERARDO FACC, ALI FACP CCDS Ot I48.0 PAROXYSMAL ATRIAL FIBRILLATION 08/12/2016 LARA GERARDO FACC, ALI FACP CCDS Ot I50.31 ACUTE DIASTOLIC (CONGESTIVE) HEART FAILU 08/12/2016 LARA GERARDO FACC, ALI FACP CCDS Ot I70.0 ATHEROSCLEROSIS OF [place] 08/12/2016 LARA GERARDO FACC, ALI FACP CCDS Ot R07.89 OTHER CHEST PAIN 08/12/2016 LARA GERARDO FACC, ALI FACP CCDS Ot Z79.899 OTHER SUPERVISOR PLASMA (CURRENT) DRUG THERAPY 11/27/2016 CORBIN MATT APRN Ot G47.9 SLEEP DISORDER, UNSPECIFIED 12/01/2016 CORBIN MATT CALIBRATION TESTER Ot G47.33 OBSTRUCTIVE SLEEP APNEA (ADULT) (PEDIATR 12/01/2016 CORBIN MATT CALIBRATION TESTER Ot G47.36 SLEEP RELATED HYPOVENTILATION IN CONDITI 12/01/2016 CORBIN MATT CALIBRATION TESTER Ot G47.9 SLEEP DISORDER, UNSPECIFIED 12/01/2016 CORBIN MATT CALIBRATION TESTER Ot 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, UNSPECIFIED 03/10/2017 SAMUEL DELCID APRN Ot F32.9 MAJOR DEPRESSIVE DISORDER, SINGLE EPISOD 03/10/2017 SAMUEL DELCID APRN Ot F41.9 ANXIETY DISORDER, UNSPECIFIED 03/10/2017 SAMUEL DELCID APRN Ot I25.10 ATHSCL HEART DISEASE OF [place] CORONARY 03/10/2017 SAMUEL DELCID APRN Ot I48.91 UNSPECIFIED ATRIAL FIBRILLATION 03/10/2017 SAMUEL DELCID APRN Ot S00.03XA CONTUSION OF SCALP, INITIAL ENCOUNTER 03/10/2017 SAMUEL DELCID APRN Ot S06.6X0A TRAUM SUBRAC HEM W/O LOSS OF CONSCIOUSNE 03/10/2017 SAMUEL DELCID APRN Ot S50.312A ABRASION OF LEFT ELBOW, INITIAL ENCOUNTE 03/10/2017 SAMUEL DELCID APRN Ot S80.212A ABRASION, LEFT KNEE, INITIAL ENCOUNTER 03/10/2017 SAMUEL DELCID APRN Ot W01.198A FALL SAME LEV FROM SLIP/TRIP W STRIKE AG 03/10/2017 SAMUEL DELCID APRN Ot Y93.K1 ACTIVITY, WALKING AN ANIMAL 03/10/2017 SAMUEL DELCID APRN Ot Z79.82 DETENTION (CURRENT) USE OF ASPIRIN 03/10/2017 SAMUEL DELCID APRN Ot Z90.49 ACQUIRED ABSENCE OF OTHER SPECIFIED PART 03/10/2017 SAMUEL DELCID APRN Ot Z90.710 ACQUIRED ABSENCE OF BOTH CERVIX AND UTER 03/11/2017 SAMUEL DELCID APRN Ot F32.9 MAJOR DEPRESSIVE DISORDER, SINGLE EPISOD 03/11/2017 SAMUEL DELCID APRN Ot F41.9 ANXIETY DISORDER, UNSPECIFIED 03/11/2017 SAMUEL DELCID APRN Ot I25.10 ATHSCL HEART DISEASE OF [place] CORONARY 03/11/2017 SAMUEL DELCID APRN Ot I48.91 UNSPECIFIED ATRIAL FIBRILLATION 03/11/2017 SAMUEL DELCID APRN Ot S00.03XA CONTUSION OF SCALP, INITIAL ENCOUNTER 03/11/2017 SAMUEL DELCID APRN Ot S06.6X0A TRAUM SUBRAC HEM W/O LOSS OF CONSCIOUSNE 03/11/2017 SAMUEL DELCID APRN Ot S50.312A ABRASION OF LEFT ELBOW, INITIAL ENCOUNTE 03/11/2017 SAMUEL DELCID APRN Ot S80.212A ABRASION, LEFT KNEE, INITIAL ENCOUNTER 03/11/2017 SAMUEL DELCID APRN Ot W01.198A FALL SAME LEV FROM SLIP/TRIP W STRIKE AG 03/11/2017 SAMUEL DELCID APRN Ot Y93.K1 ACTIVITY, WALKING AN ANIMAL 03/11/2017 SAMUEL DELCID APRN Ot Z79.82 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 03/11/2017 SAMUEL DELCID APRN Ot Z90.49 ACQUIRED ABSENCE OF OTHER SPECIFIED PART 03/11/2017 SAMUEL DELCID APRN Ot Z90.710 ACQUIRED ABSENCE OF BOTH CERVIX AND UTER 03/12/2017 SAMUEL DELCID APRN Ot F32.9 MAJOR DEPRESSIVE DISORDER, SINGLE EPISOD 03/12/2017 SAMUEL DELCID APRN Ot F41.9 ANXIETY DISORDER, UNSPECIFIED 03/12/2017 SAMUEL DELCID APRN Ot I25.10 ATHSCL HEART DISEASE OF [place] CORONARY 03/12/2017 SAMUEL DELCID APRN Ot I48.91 UNSPECIFIED ATRIAL FIBRILLATION 03/12/2017 SAMUEL DELCID APRN Ot S00.03XA CONTUSION OF SCALP, INITIAL ENCOUNTER 03/12/2017 SAMUEL DELCID APRN Ot S06.6X0A TRAUM SUBRAC HEM W/O LOSS OF CONSCIOUSNE 03/12/2017 SAMUEL DELCID APRN Ot S50.312A ABRASION OF LEFT ELBOW, INITIAL ENCOUNTE 03/12/2017 SAMUEL DELCID APRN Ot S80.212A ABRASION, LEFT KNEE, INITIAL ENCOUNTER 03/12/2017 SAMUEL DELCID APRN Ot W01.198A FALL SAME LEV FROM SLIP/TRIP W STRIKE AG 03/12/2017 SAMUEL DELCID APRN Ot Y93.K1 ACTIVITY, WALKING AN ANIMAL 03/12/2017 SAMUEL DELCID APRN Ot Z79.82 DETENTION (CURRENT) USE OF ASPIRIN 03/12/2017 SAMUEL DELCID APRN Ot Z90.49 ACQUIRED ABSENCE OF OTHER SPECIFIED PART 03/12/2017 SAMUEL DELCID APRN Ot Z90.710 ACQUIRED ABSENCE OF BOTH CERVIX AND UTER 11/11/2018 GISELLEMAYESSENIA L RESTORATIVE COORDINATOR Ot R07.89 OTHER CHEST PAIN 11/15/2018 BAIMAYESSENIA RESTORATIVE COORDINATOR Ot R07.89 OTHER CHEST PAIN 11/16/2018 YESSENIA ZARAGOZA RESTORATIVE COORDINATOR Ot E78.5 HYPERLIPIDEMIA, UNSPECIFIED 11/16/2018 YESSENIA ZARAGOZA RESTORATIVE COORDINATOR Ot G47.33 OBSTRUCTIVE SLEEP APNEA (ADULT) (PEDIATR 11/16/2018 YESSENIA ZARAGOZA RESTORATIVE COORDINATOR Ot I10 ESSENTIAL (PRIMARY) HYPERTENSION 11/16/2018 YESSENIA ZARAGOZA RESTORATIVE COORDINATOR Ot I25.10 ATHSCL HEART DISEASE OF [place] CORONARY 11/16/2018 YESSENIA ZARAGOZA RESTORATIVE COORDINATOR Ot I48.91 UNSPECIFIED ATRIAL FIBRILLATION 11/16/2018 YESSENIA ZARAGOZA RESTORATIVE COORDINATOR Ot I77.9 DISORDER OF ARTERIES AND ARTERIOLES, UNS 11/16/2018 YESSENIA ZARAGOZA RESTORATIVE COORDINATOR Ot R07.9 CHEST PAIN, UNSPECIFIED 11/29/2018 Ot 401.9 HYPERTENSION NOS 11/29/2018 Ot 427.31 ATRIAL FIBRILLATION 11/29/2018 Ot 780.79 OTH MALAISE FATIGUE 11/29/2018 Ot 786.05 SHORTNESS OF BREATH 11/29/2018 GELLENDER DO, REY Gu Ot 785.6 ENLARGEMENT LYMPH NODES 11/29/2018 [facility] DO, REY Gu Ot 786.6 CHEST SWELLING/MASS/LUMP 11/29/2018 [facility] DO, REY Gu Ot R07.9 CHEST PAIN, UNSPECIFIED 11/29/2018 LARA GERARDO FACC, RUBI FACP CCDS Ot E78.4 OTHER HYPERLIPIDEMIA 11/29/2018 LARA GERARDO FACC, ALI FACP CCDS Ot I10 ESSENTIAL (PRIMARY) HYPERTENSION 11/29/2018 LARA GERARDO FACC, ALI FACP CCDS Ot I25.10 ATHSCL HEART DISEASE OF [place] CORONARY 11/29/2018 LARA GRESHAMC, ALI FACP CCDS Ot I48.0 PAROXYSMAL ATRIAL FIBRILLATION 11/29/2018 LARA GERADRO FACC, ALI FACP CCDS Ot R00.2 PALPITATIONS 11/29/2018 LARA GERARDO FACC, ALI FACP CCDS Ot R06.02 SHORTNESS OF BREATH 11/29/2018 LARA GERARDO FACC, ALI FACP CCDS Ot R53.83 OTHER FATIGUE 11/29/2018 LARA GERARDO FACC, ALI FACP CCDS Ot E78.4 OTHER HYPERLIPIDEMIA 11/29/2018 LARA GRESHAMC, ALI FACP CCDS Ot I10 ESSENTIAL (PRIMARY) HYPERTENSION 11/29/2018 LARA GERARDO FACC, ALI FACP CCDS Ot I25.10 ATHSCL HEART DISEASE OF [place] CORONARY 11/29/2018 LARA GERARDO FACC, ALI FACP CCDS Ot I48.0 PAROXYSMAL ATRIAL FIBRILLATION 11/29/2018 LARA GRESHAMC, ALI FACP CCDS Ot R00.2 PALPITATIONS 11/29/2018 LARA GERARDO [facility], ALI FACP CCDS Ot R06.02 SHORTNESS OF BREATH 11/29/2018 LARA MD [facility], ALI FACP CCDS Ot R53.83 OTHER FATIGUE 11/29/2018 LARA MD [facility], ALI FACP CCDS Ot E78.4 OTHER HYPERLIPIDEMIA 11/29/2018 LARA [facility] [place]I FACP CCDS Ot I10 ESSENTIAL (PRIMARY) HYPERTENSION 11/29/2018 LARA MD [facility], [place]I FACP CCDS Ot I25.10 ATHSCL HEART DISEASE OF [place] CORONARY 11/29/2018 LARA [facility] FACP CCDS Ot I48.0 PAROXYSMAL ATRIAL FIBRILLATION 11/29/2018 LARA GERARDO [facility] [place] FACP CCDS Ot R00.2 PALPITATIONS 11/29/2018 LARA GERARDO [facility] FACP CCDS Ot R06.02 SHORTNESS OF BREATH 11/29/2018 LARA [facility] FACP CCDS Ot R53.83 OTHER FATIGUE 11/29/2018 BAIMA, YESSENIA L RESTORATIVE COORDINATOR Ot E78.5 HYPERLIPIDEMIA, UNSPECIFIED 11/29/2018 BAIMA, YESSENIA L RESTORATIVE COORDINATOR Ot G47.33 OBSTRUCTIVE SLEEP APNEA (ADULT) (PEDIATR 11/29/2018 BAIMA, YESSENIA L RESTORATIVE COORDINATOR Ot I10 ESSENTIAL (PRIMARY) HYPERTENSION 11/29/2018 BAIMA, YESSENIA L RESTORATIVE COORDINATOR Ot I25.10 ATHSCL HEART DISEASE OF [place] CORONARY 11/29/2018 BAIMA, YESSENIA L RESTORATIVE COORDINATOR Ot I48.91 UNSPECIFIED ATRIAL FIBRILLATION 11/29/2018 GISELLEMA, YESSENIA L RESTORATIVE COORDINATOR Ot I77.9 DISORDER OF ARTERIES AND ARTERIOLES, UNS 11/29/2018 BAIMA, YESSENIA L RESTORATIVE COORDINATOR Ot R07.9 CHEST PAIN, UNSPECIFIED 11/30/2018 BAIMA, YESSENIA L RESTORATIVE COORDINATOR Ot E78.5 HYPERLIPIDEMIA, UNSPECIFIED 11/30/2018 BAIMA, YESSENIA L RESTORATIVE COORDINATOR Ot G47.33 OBSTRUCTIVE SLEEP APNEA (ADULT) (PEDIATR 11/30/2018 BAIMA, YESSENIA L RESTORATIVE COORDINATOR Ot I10 ESSENTIAL (PRIMARY) HYPERTENSION 11/30/2018 BAIMA, YESSENIA L RESTORATIVE COORDINATOR Ot I25.10 ATHSCL HEART DISEASE OF [place] CORONARY 11/30/2018 BAIMA, YESSENIA L RESTORATIVE COORDINATOR Ot I48.0 PAROXYSMAL ATRIAL FIBRILLATION 11/30/2018 BAIMA, YESSENIA L RESTORATIVE COORDINATOR Ot I77.9 DISORDER OF ARTERIES AND ARTERIOLES, UNS 11/30/2018 BAIMA, YESSENIA L RESTORATIVE COORDINATOR Ot R07.89 OTHER CHEST PAIN 12/05/2018 BAIMA, YESSENIA L RESTORATIVE COORDINATOR Ot E78.5 HYPERLIPIDEMIA, UNSPECIFIED 12/05/2018 BAIMA, YESSENIA L RESTORATIVE COORDINATOR Ot G47.33 OBSTRUCTIVE SLEEP APNEA (ADULT) (PEDIATR 12/05/2018 BAIMA, YESSENIA L RESTORATIVE COORDINATOR Ot I10 ESSENTIAL (PRIMARY) HYPERTENSION 12/05/2018 BAIMA, YESSENIA L RESTORATIVE COORDINATOR Ot I25.10 ATHSCL HEART DISEASE OF [place] CORONARY 12/05/2018 BAIMA, YESSEINA L RESTORATIVE COORDINATOR Ot I48.0 PAROXYSMAL ATRIAL FIBRILLATION 12/05/2018 BAIMA, YESSENIA L RESTORATIVE COORDINATOR Ot I77.9 DISORDER OF ARTERIES AND ARTERIOLES, UNS 12/05/2018 BAIMA, YESSENIA L RESTORATIVE COORDINATOR Ot R07.89 OTHER CHEST PAIN 12/06/2018 BAIMA, YESSENIA L RESTORATIVE COORDINATOR Ot E78.5 HYPERLIPIDEMIA, UNSPECIFIED 12/06/2018 BAIMA, YESSENIA L RESTORATIVE COORDINATOR Ot G47.33 OBSTRUCTIVE SLEEP APNEA (ADULT) (PEDIATR 12/06/2018 BAIMA, YESSENIA L RESTORATIVE COORDINATOR Ot I10 ESSENTIAL (PRIMARY) HYPERTENSION 12/06/2018 BAIMA, YESSENIA L RESTORATIVE COORDINATOR Ot I25.10 ATHSCL HEART DISEASE OF [place] CORONARY 12/06/2018 BAIMA, YESSENIA L RESTORATIVE COORDINATOR Ot I48.91 UNSPECIFIED ATRIAL FIBRILLATION 12/06/2018 BAIMA, YESSENIA L RESTORATIVE COORDINATOR Ot I77.9 DISORDER OF ARTERIES AND ARTERIOLES, UNS 12/06/2018 BAIMA, YESSENIA L RESTORATIVE COORDINATOR Ot R07.9 CHEST PAIN, UNSPECIFIED 12/20/2018 BAIMA, YESSENIA L RESTORATIVE COORDINATOR Ot E78.5 HYPERLIPIDEMIA, UNSPECIFIED 12/20/2018 BAIMA, YESSENIA L RESTORATIVE COORDINATOR Ot G47.33 OBSTRUCTIVE SLEEP APNEA (ADULT) (PEDIATR 12/20/2018 BAIMA, YESSENIA L RESTORATIVE COORDINATOR Ot I10 ESSENTIAL (PRIMARY) HYPERTENSION 12/20/2018 BAIMA, YESSENIA L RESTORATIVE COORDINATOR Ot I25.10 ATHSCL HEART DISEASE OF [place] CORONARY 12/20/2018 BAIMA, YESSENIA L RESTORATIVE COORDINATOR Ot I48.0 PAROXYSMAL ATRIAL FIBRILLATION 12/20/2018 BAIMA, YESSENIA L RESTORATIVE COORDINATOR Ot I77.9 DISORDER OF ARTERIES AND ARTERIOLES, UNS 12/20/2018 YESSENIA ZARAGOZA RESTORATIVE COORDINATOR Ot R07.89 OTHER CHEST PAIN 12/29/2018 YESSENIA ZARAGOZA RESTORATIVE COORDINATOR Ot E78.5 HYPERLIPIDEMIA, UNSPECIFIED 12/29/2018 YESSENIA ZARAGOZA RESTORATIVE COORDINATOR Ot G47.33 OBSTRUCTIVE SLEEP APNEA (ADULT) (PEDIATR 12/29/2018 YESSENIA ZARAGOZA RESTORATIVE COORDINATOR Ot I10 ESSENTIAL (PRIMARY) HYPERTENSION 12/29/2018 YESSENIA ZARAGOZA RESTORATIVE COORDINATOR Ot I25.10 ATHSCL HEART DISEASE OF [place] CORONARY 12/29/2018 YESSENIA ZARAGOZA RESTORATIVE COORDINATOR Ot I48.0 PAROXYSMAL ATRIAL FIBRILLATION 12/29/2018 YESSENIA ZARAGOZA RESTORATIVE COORDINATOR Ot I77.9 DISORDER OF ARTERIES AND ARTERIOLES, UNS 12/29/2018 YESSENIA ZARAGOZA RESTORATIVE COORDINATOR Ot R07.89 OTHER CHEST PAIN Procedures Code Description Performed By Performed On 37.22 LEFT HEART CARDIAC CATH 10/26/2011 88.42 CONTRAST AORTOGRAM 10/26/2011 88.53 LT HEART ANGIOCARDIOGRAM 10/26/2011 88.56 CORONAR ARTERIOGR-2 CATH 10/26/2011 [id number] FLUOROSCOPY OF THORACIC AORTA USING LOW 08/27/2015 [id number] FLUOROSCOPY OF R LOW EXTREM ART USING L 08/27/2015 Results Test Result Range Complete blood count (CBC) with automated white blood cell (WBC) differential - 07/06/16 06:20 Blood leukocytes automated count (number/volume) 7.9 10*3/uL 4.3-11.0 Blood erythrocytes automated count (number/volume) 3.92 10*6/uL 4.35-5.85 Venous blood hemoglobin measurement (mass/volume) 12.7 g/dL 11.5-16.0 Blood hematocrit (volume fraction) 37 % 35-52 Automated erythrocyte mean corpuscular volume 95 [foz_us] 80-99 Automated erythrocyte mean corpuscular hemoglobin (mass per erythrocyte) 32 pg 25-34 Automated erythrocyte mean corpuscular hemoglobin concentration measurement (mass/volume) 34 g/dL 32-36 Automated erythrocyte distribution width ratio 14.0 % 10.0- 14.5 Automated blood platelet count (count/volume) 264 10*3/uL 130-400 Automated blood platelet mean volume measurement 9.4 [foz_us] 7.4-10.4 Automated blood neutrophils/100 leukocytes 57 % 42-75 Automated blood lymphocytes/100 leukocytes 25 % 12-44 Blood monocytes/100 leukocytes 10 % 0-12 Automated blood eosinophils/100 leukocytes 7 % 0-10 Automated blood basophils/100 leukocytes 1 % 0-10 Blood neutrophils automated count (number/volume) 4.5 10*3 1.8-7.8 Blood lymphocytes automated count (number/volume) 2.0 10*3 1.0-4.0 Blood monocytes automated count (number/volume) 0.8 10*3 0.0- 1.0 Automated eosinophil count 0.6 10*3/uL 0.0-0.3 Automated blood basophil count (count/volume) 0.1 10*3/uL 0.0-0.1 Comprehensive metabolic panel - 07/06/16 06:20 Serum or plasma sodium measurement (moles/volume) 145 mmol/L 135-145 Serum or plasma potassium measurement (moles/volume) 3.7 mmol/L 3.6-5.0 Serum or plasma chloride measurement (moles/volume) 111 mmol/L 98-107 Carbon dioxide 25 mmol/L 21-32 Serum or plasma anion gap determination (moles/volume) 9 mmol/L 5-14 Serum or plasma urea nitrogen measurement (mass/volume) 16 mg/dL 7-18 Serum or plasma creatinine measurement (mass/volume) 0.75 mg/dL 0.60-1.30 Serum or plasma urea nitrogen/creatinine mass ratio 21 NRG Serum or plasma creatinine measurement with calculation of estimated glomerular filtration rate > NRG Serum or plasma glucose measurement (mass/volume) 110 mg/dL 70-105 Serum or plasma calcium measurement (mass/volume) 9.0 mg/dL 8.5-10.1 Serum or plasma total bilirubin measurement (mass/volume) 0.4 mg/dL 0.1-1.0 Serum or plasma alkaline phosphatase measurement (enzymatic activity/volume) 53 U/L 40-136 Serum or plasma aspartate aminotransferase measurement (enzymatic activity/volume) 38 U/L 5-34 Serum or plasma alanine aminotransferase measurement (enzymatic activity/volume) 42 U/L 0-55 Serum or plasma protein measurement (mass/volume) 6.6 g/dL 6.4-8.2 Serum or plasma albumin measurement (mass/volume) 3.8 g/dL 3.2-4.5 Serum or plasma troponin i.cardiac measurement (mass/volume) - 07/06/16 06:20 Serum or plasma troponin i.cardiac measurement (mass/volume) < ng/mL <0.30 Serum or plasma lithium measurement (moles/volume) - 07/06/16 06:20 BNP level 388.1 pg/mL <100.0 Complete urinalysis with reflex to culture - 07/06/16 07:03 Urine color determination YELLOW NRG Urine clarity determination CLEAR NRG Urine pH measurement by test strip 7 5-9 Specific gravity of urine by test strip 1.010 1.016-1.022 Urine protein assay by test strip, semi-quantitative NEGATIVE NEGATIVE Urine glucose detection by automated test strip NEGATIVE NEGATIVE Erythrocytes detection in urine sediment by light microscopy NEGATIVE NEGATIVE Urine ketones detection by automated test strip NEGATIVE NEGATIVE Urine nitrite detection by test strip NEGATIVE NEGATIVE Urine total bilirubin detection by test strip NEGATIVE NEGATIVE Urine urobilinogen measurement by automated test strip (mass/volume) NORMAL NORMAL Urine leukocyte esterase detection by dipstick NEGATIVE NEGATIVE Automated urine sediment erythrocyte count by microscopy (number/high power field) NONE NRG Automated urine sediment leukocyte count by microscopy (number/high power field) NONE NRG Bacteria detection in urine sediment by light microscopy NEGATIVE NRG Squamous epithelial cells detection in urine sediment by light microscopy 0-2 NRG Crystals detection in urine sediment by light microscopy NONE NRG Casts detection in urine sediment by light microscopy NONE NRG Mucus detection in urine sediment by light microscopy NEGATIVE NRG Complete urinalysis with reflex to culture NO NRG Automated blood complete blood count (hemogram) panel - 07/14/16 07:39 Blood leukocytes automated count (number/volume) 9.2 10*3/uL 4.3-11.0 Blood erythrocytes automated count (number/volume) 4.14 10*6/uL 4.35-5.85 Venous blood hemoglobin measurement (mass/volume) 13.2 g/dL 11.5-16.0 Blood hematocrit (volume fraction) 40 % 35-52 Automated erythrocyte mean corpuscular volume 95 [foz_us] 80-99 Automated erythrocyte mean corpuscular hemoglobin (mass per erythrocyte) 32 pg 25-34 Automated erythrocyte mean corpuscular hemoglobin concentration measurement (mass/volume) 33 g/dL 32-36 Automated erythrocyte distribution width ratio 13.6 % 10.0- 14.5 Automated blood platelet count (count/volume) 264 10*3/uL 130-400 Automated blood platelet mean volume measurement 9.7 [foz_us] 7.4-10.4 PT panel in platelet poor plasma by coagulation assay - 07/14/16 07:39 Prothrombin time (PT) in platelet poor plasma by coagulation assay 11.8 s 12.2-14.7 INR in platelet poor plasma or blood by coagulation assay 0.9 0.8-1.4 Activated partial thromboplastin time (aPTT) in platelet poor plasma bycoagulation assay - 07/14/16 07:39 Activated partial thromboplastin time (aPTT) in platelet poor plasma bycoagulation assay 28 s 24-35 Comprehensive metabolic panel - 07/14/16 07:39 Serum or plasma sodium measurement (moles/volume) 143 mmol/L 135-145 Serum or plasma potassium measurement (moles/volume) 3.8 mmol/L 3.6-5.0 Serum or plasma chloride measurement (moles/volume) 109 mmol/L 98-107 Carbon dioxide 24 mmol/L 21-32 Serum or plasma anion gap determination (moles/volume) 10 mmol/L 5-14 Serum or plasma urea nitrogen measurement (mass/volume) 25 mg/dL 7-18 Serum or plasma creatinine measurement (mass/volume) 0.75 mg/dL 0.60-1.30 Serum or plasma urea nitrogen/creatinine mass ratio 33 NRG Serum or plasma creatinine measurement with calculation of estimated glomerular filtration rate > NRG Serum or plasma glucose measurement (mass/volume) 91 mg/dL 70-105 Serum or plasma calcium measurement (mass/volume) 9.0 mg/dL 8.5-10.1 Serum or plasma total bilirubin measurement (mass/volume) 0.5 mg/dL 0.1-1.0 Serum or plasma alkaline phosphatase measurement (enzymatic activity/volume) 55 U/L 40-136 Serum or plasma aspartate aminotransferase measurement (enzymatic activity/volume) 30 U/L 5-34 Serum or plasma alanine aminotransferase measurement (enzymatic activity/volume) 33 U/L 0-55 Serum or plasma protein measurement (mass/volume) 7.0 g/dL 6.4-8.2 Serum or plasma albumin measurement (mass/volume) 4.2 g/dL 3.2-4.5 Lipid 1996 panel - 07/14/16 07:39 Serum or plasma triglyceride measurement (mass/volume) 238 mg/dL <150 Serum or plasma cholesterol measurement (mass/volume) 185 mg/dL < 200 Serum or plasma cholesterol in HDL measurement (mass/volume) 53 mg/dL 40-60 Cholesterol in LDL [mass/volume] in serum or plasma by direct assay 90 mg/dL 1-129 Serum or plasma cholesterol in VLDL measurement (mass/volume) 48 mg/dL 5-40 Methicillin resistant Staphylococcus aureus (MRSA) screening culture - 07/14/16 07:39 Methicillin resistant Staphylococcus aureus (MRSA) screening culture NEG NRG Encounters ACCT No. Visit Date/Time Discharge Status Pt. Type Provider Facility Loc./Unit Complaint [id number] 11/29/2018 07:09:00 11/29/2018 23:59:59 CLS Outpatient YESSENIA ZARAGOZA [facility] CARD CAD,CHEST PAIN [id number] 11/15/2018 09:43:00 11/15/2018 23:59:59 CLS Outpatient YESSENIA ZARAGOZA [facility] CARD CHEST PAIN,CAD,HTN [id number] 03/10/2017 12:42:00 03/10/2017 16:46:00 DIS Emergency SAMUEL DELCID APRN [facility] ER FELL,LT SHOULDER INJ,ARM ABRASION,HIT HEAD [id number] 11/30/2016 20:22:00 12/01/2016 06:20:00 DIS Outpatient CORBIN MATT APRN [facility] SLEEP AFIB,SOB,SLEEP DISTURBANCE [id number] 07/14/2016 07:02:00 07/14/2016 13:20:00 DIS Outpatient RUBI BERMUDEZ MD, FACC, FACP CCDS [facility] CATH SOB,ANGINA [id number] 07/06/2016 05:53:00 07/06/2016 07:50:00 DIS Emergency MILDRED ASKEW MD [facility] ER WHIZZY [id number] 06/23/2016 08:15:00 06/23/2016 23:59:59 CLS Outpatient RUBI BERMUDEZ MD, FACC, FACP CCDS [facility] CARD CAD,SOB,AFIB [id number] 06/16/2016 09:02:00 06/16/2016 23:59:59 CLS Outpatient LARA GERARDO FACVidhi, RUBI CASTRO CCDS [facility] CARD CAD,SOB,AFIB [id number] 06/15/2016 14:36:00 06/15/2016 23:59:59 CLS Outpatient LARA GERARDO FACC, RUBI CASTRO CCDS [facility] RT TIREDNESS,AFIB,PALPITATIONS [id number] 02/22/2016 00:41:00 02/22/2016 02:25:00 DIS Emergency MEL SMITH DO [facility] ER RT KNEE PAIN [id number] 02/21/2016 21:10:00 02/21/2016 22:02:00 DIS Emergency SAMUEL DELCID APRN [facility] ER HEAD INJURY [id number] 09/30/2015 14:06:00 09/30/2015 15:00:00 DIS Outpatient FEMI ROONEY MD [facility] WOUNDCARE [id number] 08/30/2015 17:20:00 09/06/2015 13:20:00 DIS Inpatient REY AGUILAR DO [facility] 4TH SWB/EXTENSIVE CELLULITIS OF RLE,LEUKOCYTOSIS [id number] 08/19/2015 11:17:00 08/30/2015 15:58:00 DIS Inpatient REY AGUILAR DO [facility] 4TH EXTENSIVE CELLULITIS OF RLE,LEUKOCYTOSIS [id number] 05/07/2015 12:07:00 05/07/2015 23:59:59 CLS Outpatient REY AGUILAR DO [facility] LAB CHEST HURTS FOR LAST FEW DAYS [id number] 11/20/2014 12:34:00 11/20/2014 23:59:59 CLS Outpatient REY AGUILAR DO [facility] RAD ENLARGED HILAM [id number] 11/05/2014 16:59:00 11/05/2014 20:55:00 DIS Emergency BECKY DEL TORO MD [facility] ER CHEST PAIN [id number] 05/04/2014 22:17:00 05/04/2014 22:56:00 DIS Emergency SAMUEL DELCID CALIBRATION TESTER [facility] ER MULTIPLE COMPLAINTS [id number] 01/02/2014 13:32:00 01/02/2014 16:20:00 DIS Emergency SAMUEL DELCID CALIBRATION TESTER [facility] ER FALL [id number] 12/30/2012 09:56:00 03/30/2013 00:01:00 DIS Outpatient SHAWN DEL TORO RESTORATIVE COORDINATOR [facility] CARD AFIB,PALPITATIONS [id number] 05/07/2015 12:07:00 Document Registration [id number] 05/07/2015 12:07:00 Document Registration [id number] 05/07/2015 12:07:00 Document Registration [id number] 05/07/2015 12:07:00 Document Registration [id number] 05/07/2015 12:07:00 Document Registration [id number] 05/07/2015 12:07:00 Document Registration [id number] 11/05/2014 19:45:00 Document Registration [id number] 10/10/2014 13:03:00 Document Registration [id number] 05/09/2012 00:00:00 Document Registration [id number] 04/21/2012 09:42:00 Document Registration [id number] 03/10/2012 12:42:00 Document Registration [id number] 02/10/2012 17:03:00 Document Registration [id number] 02/08/2012 09:57:00 Document Registration [id number] 11/19/2011 16:26:00 Document Registration
[2019-01-05] MEDS: NITROGLYCERIN 0.4 MG SL TABS BTL 25'S SL PRN ×3 (01:07→01:17)
[2019-01-05 01:09] LABS: BASOPHILS % (AUTO) 0 % (0-10); EOSINOPHILS # (AUTO) 0.2 10^3/uL (0.0-0.3); EOSINOPHILS % (AUTO) 1 % (0-10); HEMATOCRIT 36 % (35-52); HEMOGLOBIN 12.3 G/DL (11.5-16.0); LYMPHOCYTES # (AUTO) 1.9 X 10^3 (1.0-4.0); LYMPHOCYTES % (AUTO) 12 % (12-44); MEAN CORPUSCULAR HEMOGLOBIN 30 PG (25-34); MEAN CORPUSCULAR HGB CONC 34 G/DL (32-36); MEAN CORPUSCULAR VOLUME 88 FL (80-99); MEAN PLATELET VOLUME 9.9 FL (7.4-10.4); MONOCYTES # (AUTO) 1.4 X 10^3 (0.0-1.0); MONOCYTES % (AUTO) 9 % (0-12); NEUTROPHILS % (AUTO) 78 % (42-75); PLATELET COUNT 270 10^3/uL (130-400); RED CELL DISTRIBUTION WIDTH 13.3 % (10.0-14.5); WHITE BLOOD COUNT 16.6 10^3/uL (4.3-11.0)
[2019-01-05] MEDS ORDERED: NS IV 1000 ML 1,000 ML IV ONE (01:10)
[2019-01-05 01:23] LABS: PROTHROMBIN TIME PATIENT 13.7 SEC (12.2-14.7)
[2019-01-05 01:32] LABS: BAND NEUTROPHILS 1 %; BASOPHILS % (MANUAL) 0 %; ELLIPT/OVALOCYTES SLIGHT; EOSINOPHILS % (MANUAL) 1 %; LYMPHOCYTES % (MANUAL) 12 %; MONOCYTES % (MANUAL) 5 %; NEUTROPHILS % (MANUAL) 81 %
[2019-01-05 01:33] LABS: ALANINE AMINOTRANSFERASE 24 U/L (0-55); ALBUMIN 4.2 GM/DL (3.2-4.5); ALKALINE PHOSPHATASE 78 U/L (40-136); AMYLASE 41 U/L (25-125); BILIRUBIN,TOTAL 0.4 MG/DL (0.1-1.0); BUN/CREATININE RATIO 38; CALCIUM 9.5 MG/DL (8.5-10.1); CARBON DIOXIDE 20 MMOL/L (21-32); CHLORIDE 107 MMOL/L (98-107); CREATININE SERUM 0.84 MG/DL (0.60-1.30); GFR ESTIMATED > 60; GLUCOSE 156 MG/DL (70-105); LIPASE 18 U/L (8-78); MAGNESIUM 1.8 MG/DL (1.8-2.4); POTASSIUM 3.7 MMOL/L (3.6-5.0); SODIUM 141 MMOL/L (135-145); TOTAL PROTEIN 7.2 GM/DL (6.4-8.2)
[2019-01-05] MEDS ORDERED: NS 50 ML (IVPB) BAG IV ONE (02:15)
[2019-01-05] MEDS ORDERED: HOLD METFORMIN - RECEIVED CONTRAST 20 ML VIAL IV SCH (02:15)
[2019-01-05] MEDS ORDERED: IOHEXOL 350 MG/ML 100 ML (OMNIPAQUE 350) VIAL IV ONE (02:15)
--- NOTE | 2019-01-05 03:05 | NUR ---
o2 removed from pt.
[2019-01-05] MEDS ORDERED: ENOXAPARIN 80 MG/0.8 ML (LOVENOX) SYR SC ONE (03:15)
[2019-01-05] MEDS ORDERED: APIXABAN 5 MG (ELIQUIS) TABLET PO ONE (03:15)
--- NOTE | 2019-01-05 04:20 | ED Chest Pain ---
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), AND AROUND 2250, SHE BEGAN TO HAVE CHEST PAIN PT FINISHED HER SHIFT, THEN CAME HERE PT STATES PAIN IS IN CENTER OF CHEST--RATES PAIN 8/10 STATES SHE FELT LIKE SHE WAS GOING TO FAINT PAIN RADIATED INTO JAWS AND HAD ALOT OF ACHING IN JAWS--JAW PAIN IS GONE NOW C/O NAUSEA, NO VOMITING NO SWEATS STATES IT HURTS TO BREATHE, BUT DOES NOT ACTUALLY FEEL SHORT OF BREATH HAS HISTORY OF ATRIAL FIBRILLATION, AND 2 NIGHTS AGO, SHE WAS UNABLE TO SLEEP ALL NIGHT DUE TO IRREGULAR HEART BEAT ALL NIGHT LONG, STATES IT EVENTUALLY WENT AWAY LATER YESTERDAY MORNING AND THEN SHE WAS ABLE TO SLEEP LAST NIGHT. PT ALSO HAS A HISTORY OF CHF. STATES SHE ALWAYS HAS A LITTLE BIT OF SWELLING IN HER LEGS, BUT NOT NOW ALSO HAS A HISTORY OF A LEAKY VALVE AND LAST WEEK WHEN SHE HAD ROUTINE VISIT W APRIL BERMUDEZ, SHE STATES HE TOLD HER THAT IT WAS A LITTLE WORSE. HE HAS ADVISED THAT SHE GO ON ELIQUIS ON SEVERAL OCCASIONS, AND ADVISED IT AGAIN LAST WEEK BUT PT HAS DECLINED AND WANTS TO STAY ON ASPIRIN. PT HAD A NORMAL STRESS TEST 11/29/[address] BERMUDEZ. EF 79% AT THAT TIME PT DID FALL IN 2017 AND HIT HER HEAD AND HAD A SUBARACHNOID BLEED, WHILE ON ASPIRIN. NO RESIDUAL EFFECTS FROM THAT. LAST CARDIAC CATH HERE WAS IN 2016--MILD CAD--NO INTERVENTION; 30% RIGHT RENAL ARTERY STENOSIS--NO INTERVENTION PCP: DR. AGUILAR LAND CONSERVATION SPECIALIST: DR. BERMUDEZ Allergies and Home Medications Allergies Coded Allergies: tolmetin (Verified Allergy, Unknown, 08/19/15) Home Medications Alprazolam 0.25 Mg Tablet, 0.25 MG PO BID PRN for ANXIETY, (Reported) Aspirin 81 Mg Tab.chew, 81 MG PO DAILY Prescribed by: RUBI BERMUDEZ on 07/14/16 0959 Betamethasone/Propylene Glyc 15 Gm Cream..g., TOP BID PRN for ITCHING, (Reported) Calcium Carbonate/Vitamin D3 1 Each Tablet, 1 TAB PO BID, (Reported) Diltiazem HCl 120 Mg Cap.er.24h, 120 MG PO DAILY, (Reported) Enalapril Maleate 20 Mg Tablet, 20 MG PO BID, (Reported) Furosemide 40 Mg Tablet, 40 MG PO DAILY, (Reported) Furosemide 40 Mg Tablet, 40 MG PO DAILY PRN for 2LB WEIGHT GAIN IN 24 HOURS, (Reported) TAKES AN ADDITIONAL TABLET DAILY IF MORE THAN A 2 POUND WEIGHT GAIN IN A 24 HOURS PERIOD Loratadine 10 Mg Tablet, 10 MG PO DAILY, (Reported) Metoprolol Tartrate 50 Mg Tablet, 50 MG PO BID, (Reported) Mu-Vits-Min Th/Lycopene/Lutein 1 Each Tablet, 1 TAB PO DAILY, (Reported) Potassium Chloride 20 Meq Tab.er.prt, 20 MEQ PO BID, (Reported) Pravastatin Sodium 40 Mg Tablet, 40 MG PO HS, (Reported) Sertraline HCl 25 Mg Tablet, 25 MG PO DAILY, (Reported) Tramadol HCl 50 Mg Tablet, 50 MG PO BID PRN for PAIN, (Reported) Trazodone HCl 50 Mg Tablet, 25-50 MG PO HS PRN for SLEEP, (Reported) TAKES 1/2 TO 1 (50MG) TABLET Patient Home Medication List Home Medication List Reviewed: Yes Review of Systems Review of Systems Constitutional: see HPI; No diaphoresis; dizziness (NEAR-SYNCOPE) EENTM: See HPI (JAWS ACHE) Respiratory: See HPI; Denies Shortness of Air; Other (HURTS TO BREATH) Cardiovascular: See HPI, Chest Pain; Denies Edema; Irregular Heart Rate, Lightheadedness, Palpitations, Syncope (NEAR-SYNCOPE) Gastrointestinal: See HPI; Denies Abdominal Pain; Nausea; Denies Vomiting Genitourinary: No Symptoms Reported Musculoskeletal: no symptoms reported; No back pain Skin: no symptoms reported Psychiatric/Neurological: No Symptoms Reported; Denies Headache, Denies Numbness, Denies Paresthesia, Denies Seizure, Denies Tingling, Denies Weakness Endocrine: No Symptoms Reported Hematologic/Lymphatic: See HPI Past Pwragxn-Qnjiaa-Fyrnnj Hx Patient Social History Alcohol Use: Denies Use Recreational Drug Use: No Smoking Status: Never a Smoker 2nd Hand Smoke Exposure: No Recent Foreign Travel: No Contact w/Someone Who Travel: No Recent Infectious Disease Expo: No Recent Hopitalizations: No Immunizations Up To Date Tetanus Booster (TDap): Unknown PED Vaccines UTD: No Date of Pneumonia Vaccine: Apr 16, 2011 Date of Influenza Vaccine: May 04, 2016 Seasonal Allergies Seasonal Allergies: Yes Past Medical History Surgeries: Yes (CARDIAC CATHS--NO INTERVENTION--LAST ONE HERE 2016) Cardiac, Gallbladder, Hysterectomy Respiratory: No Cardiac: Yes Atrial Fibrillation, Chronic Edema/Swelling, Coronary Artery Disease, High Cholesterol, Hypertension, Peripheral Vascular, Valvular Heart Disease Neurological: Yes (SUBARACHNOID BLEED 2017 DUE TO A FALL/HITTING HER HEAD) : No Reproductive Disorders: No 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, 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 Sexually Transmitted Disease: No HIV/AIDS: No Genitourinary: No Gastrointestinal: Yes Gastroesophageal Reflux Musculoskeletal: Yes Arthritis, Chronic Back Pain Endocrine: No HEENT: Yes Cataract Cancer: No Psychosocial: Yes Anxiety, Depression Integumentary: Yes (CELLULITIS) Blood Disorders: No Adverse Reaction/Blood Tranf: No Family Medical History Diabetes mellitus 19 MOTHER G8 BROTHER G8 SISTER G8 SISTER No Pertinent Family Hx Physical Exam Vital Signs Vital Signs - First Documented 01/05/19 01/05/19 00:54 01:21 Temp 97.6 Pulse 70 Resp 18 B/P (MAP) 119/49 (72) O2 Flow Rate 2.00 Capillary Refill : Less Than 3 Seconds Height, Weight, BMI Height: 5'7.00" Weight: 170lbs. 0.0oz. 77.798403pi; 27.3 BMI Method:Stated General Appearance: No Apparent Distress, WD/WN, Other (VERY PLEASANT, SMILING, DOES NOT APPEAR TO BE IN ANY DISCOMFORT OR DISTRESS) HEENT: Other (MISSING TEETH) Neck: Full Range of Motion, Normal Inspection, Non Tender, Supple, Carotid Bruit, JVD Respiratory: Chest Non Tender, Normal Breath Sounds, No Accessory Muscle Use, No Respiratory Distress Cardiovascular: Regular Rate, Rhythm, No JVD, Normal Peripheral Pulses, Systolic Murmur (?FAINT SYSTOLIC MURMUR? 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 Norm as Tested Skin: Normal Color, Warm/Dry Progress/Results/Core Measures Results/Orders Lab Results Laboratory Tests Test 01/05/19 01:02 Range/Units White Blood Count 16.6 H 4.3-11.0 10^3/uL Red Blood Count 4.14 L 4.35-5.85 10^6/uL Hemoglobin 12.3 11.5-16.0 G/DL Hematocrit 36 35-52 % Mean Corpuscular Volume 88 80-99 FL Mean Corpuscular Hemoglobin 30 25-34 PG Mean Corpuscular Hemoglobin Concent 34 32-36 G/DL Red Cell Distribution Width 13.3 10.0-14.5 % Platelet Count 270 130-400 10^3/uL Mean Platelet Volume 9.9 7.4-10.4 FL Neutrophils (%) (Auto) 78 H 42-75 % Lymphocytes (%) (Auto) 12 12-44 % Monocytes (%) (Auto) 9 0-12 % Eosinophils (%) (Auto) 1 0-10 % Basophils (%) (Auto) 0 0-10 % Neutrophils # (Auto) 13.0 H 1.8-7.8 X 10^3 Lymphocytes # (Auto) 1.9 1.0-4.0 X 10^3 Monocytes # (Auto) 1.4 H 0.0-1.0 X 10^3 Eosinophils # (Auto) 0.2 0.0-0.3 10^3/uL Basophils # (Auto) 0.0 0.0-0.1 10^3/uL Neutrophils % (Manual) 81 % Lymphocytes % (Manual) 12 % Monocytes % (Manual) 5 % Eosinophils % (Manual) 1 % Basophils % (Manual) 0 % Band Neutrophils 1 % Elliptocytes SLIGHT Prothrombin Time 13.7 12.2-14.7 SEC INR Comment 1.0 0.8-1.4 Activated Partial Thromboplast Time 33 24-35 SEC Sodium Level 141 135-145 MMOL/L Potassium Level 3.7 3.6-5.0 MMOL/L Chloride Level 107 98-107 MMOL/L Carbon Dioxide Level 20 L 21-32 MMOL/L Anion Gap 14 5-14 MMOL/L Blood Urea Nitrogen 32 H 7-18 MG/DL Creatinine 0.84 0.60-1.30 MG/DL Estimat Glomerular Filtration Rate > 60 BUN/Creatinine Ratio 38 Glucose Level 156 H 70-105 MG/DL Calcium Level 9.5 8.5-10.1 MG/DL Corrected Calcium 9.3 8.5-10.1 MG/DL Magnesium Level 1.8 1.8-2.4 MG/DL Total Bilirubin 0.4 0.1-1.0 MG/DL Aspartate Amino Transf (AST/SGOT) 25 5-34 U/L Alanine Aminotransferase (ALT/SGPT) 24 0-55 U/L Alkaline Phosphatase 78 40-136 U/L Myoglobin 133.7 H 10.0-92.0 NG/ML Troponin I < 0.028 <0.028 NG/ML B-Type Natriuretic Peptide 71.7 <100.0 PG/ML Total Protein 7.2 6.4-8.2 GM/DL Albumin 4.2 3.2-4.5 GM/DL Amylase Level 41 25-125 U/L Lipase 18 8-78 U/L My Orders Orders - LUBA ROMERO DO Cbc With Automated Diff (01/05/19 00:58) Magnesium (01/05/19 00:58) Chest 1 View, Ap/Pa Only (01/05/19 00:58) Ekg Tracing (01/05/19 00:58) Cardiac Profile 1 (01/05/19 00:58) Comprehensive Metabolic Panel (01/05/19 00:58) Myoglobin Serum (01/05/19 00:58) Protime With Inr (01/05/19 00:58) Partial Thromboplastin Time (01/05/19 00:58) O2 (01/05/19 00:58) Monitor-Rhythm Ecg Trace Only (01/05/19 00:58) Lipid Panel (01/06/19 06:00) Ed Iv/Invasive Line Start (01/05/19 00:58) Lipase (01/05/19 00:58) Amylase (01/05/19 00:58) BNP (01/05/19 00:58) Nitroglycerin 0.4 Mg Btl 25's (Nitrostat (01/05/19 01:00) Aspirin Chewable Tablet (Baby Aspirin Ch (01/05/19 01:00) Ed Iv/Invasive Line Start (01/05/19 01:10) Ns Iv 1000 Ml (Sodium Chloride 0.9%) (01/05/19 01:10) Manual Differential (01/05/19 01:02) Ct Angio Chest W (01/05/19 01:59) Iohexol Injection (Omnipaque 350 Mg/Ml 1 (01/05/19 02:15) Received Contrast (Hold Metformin- Contr (01/05/19 02:15) Ns (Ivpb) (Sodium Chloride 0.9% Ivpb Bag (01/05/19 02:15) Enoxaparin Injection (Lovenox Injection) (01/05/19 03:15) Apixaban Tablet (Eliquis Tablet) (01/05/19 03:15) Rt Request For Service (01/05/19 03:28) Medications Given in ED Current Medications Medications Dose Ordered Sig/Tc Route Start Time Stop Time Status Last Admin Dose Admin Apixaban 10 mg ONCE ONCE PO 01/05/19 03:15 01/05/19 04:59 DC 01/05/19 03:30 10 MG Aspirin 324 mg ONCE ONCE PO 01/05/19 01:00 01/05/19 01:01 DC 01/05/19 01:07 324 MG Enoxaparin Sodium 80 mg ONCE ONCE SC 01/05/19 03:15 01/05/19 03:16 DC 01/05/19 03:30 80 MG Iohexol 100 ml ONCE ONCE IV 01/05/19 02:15 01/05/19 02:16 DC 01/05/19 02:30 100 ML Nitroglycerin 0.4 mg UD PRN SL 01/05/19 01:00 01/05/19 01:21 DC 01/05/19 01:17 0.4 MG Sodium Chloride 50 ml ONCE ONCE IV 01/05/19 02:15 01/05/19 02:16 DC 01/05/19 02:30 50 ML Sodium Chloride 1,000 ml @ 0 mls/hr Q0M ONCE IV 01/05/19 01:10 01/05/19 01:11 DC 01/05/19 01:17 0 MLS/HR Vital Signs/I&O 01/05/19 01/05/19 01/05/19 01/05/19 00:54 00:54 00:54 01:21 Temp 97.6 Pulse 70 Resp 18 B/P (MAP) 119/49 (72) Pulse Ox 97 97 98 O2 Delivery Room Air Room Air Room Air Nasal Cannula O2 Flow Rate 2.00 Blood Pressure Mean: 72 Progress Progress Note : Progress Note GIVEN ASPIRIN AND NTG X 3--PAIN DOWN TO 1-2--STATES IT ONLY HURTS TO BREATHE NOW. O2 SATS 93-94% ON ROOM AIR, AND 95-96% WITH AMBULATION. NO DETERIORATION IN PT'S CONDITION PT CONTINUED ON O2 AT 2L/NC AND O2 SATS REMAINED 97-98% UNEVENTFUL ER STAY. Initial ECG Impression Date: Jan 05, 2019 Initial ECG Impression Time: 00:57 Initial ECG Rate: 70 Initial ECG Rhythm: Normal Sinus Initial ECG Impression: Nonspecific Changes Initial ECG Comparisson: Changed (SLIGHT CHANGE FROM 2016) Diagnostic Imaging Comments CXR--NO ACUTE PROCESS, UNCHANGED FROM PREVIOUS-ELEVATED RIGHT DIAPHRAGM, PENDING RADIOLOGIST REVIEW CT ANGIOGRAM OF CHEST--LLL SMALL SUB-SEGMENTAL P.E. POSSIBLE MILD PULMONARY EDEMA / INFILTRATES VS HYPOVENTILATION VS MOTION ARTIFACT--PER [facility] VIA FAX @ 1010, AND PER [facility] RADIOLOGIST VIA PHONE AT [phone] Reviewed: Reviewed by Me, Discussed w/Radiologist Departure Communication (Admissions) 0339--SPOKE WITH DR. 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 DR. BERMUDEZ AVAILABLE FOR CONSULT. WILL HAVE HIM NOTIFIED IN AM. 0347--SPOKE WITH DR. AGUILAR, ACCEPTS PT FOR ADMIT. WILL HOLD PT IN ER UNTIL BED IS AVAILABLE AT 0700. Impression Primary Impression: Pulmonary embolism Additional Impressions: Chest pain Valvular heart disease HX OF INTERMITTENT ATRIAL FIBRILLATION History of hypertension Disposition: ADMITTED INPATIENT Condition: Improved Departure-Patient Inst. Referrals: REY AGUILAR DO (PCP/Family) Primary Care Physician LUBA ROMERO DO Jan 05, 2019 04:20
--- NOTE | 2019-01-05 06:02 | NUR ---
PT UP AMBULATING TO RESTROOM.
--- NOTE | 2019-01-05 06:52 | Diagnostic Imaging Report ---
PROCEDURE: CT angiography of the chest with contrast. TECHNIQUE: Multiple contiguous axial images were obtained through the chest after uneventful bolus administration of intravenous contrast. 2D reconstructed CTA MIP acquisitions were also performed. Auto Exposure Controls were utilized during the CT exam to meet ALARA standards for radiation dose reduction. INDICATION: Chest pain and shortness of breath. FINDINGS: There is a small subsegmental pulmonary embolism in the left lower lobe. There are no other filling defects seen within the pulmonary arteries. The thoracic aorta is normal in caliber without evidence of dissection. Heart size is normal. There is no pathologically enlarged adenopathy in the chest. There is dependent atelectasis in lung bases bilaterally. There is no pleural or pericardial fluid. There is no pneumothorax. The visualized intra-abdominal structures are unremarkable. There are degenerative changes in the spine. IMPRESSION: Left lower lobe segmental/subsegmental pulmonary embolism. Dependent atelectasis in the lung bases bilaterally. Dictated by: Dictated on workstation # [id number]
--- NOTE | 2019-01-05 07:14 | Diagnostic Imaging Report ---
INDICATION: Chest pain. Portable upright AP view of the chest is obtained with comparison made study of 07/06/2016. FINDINGS: Overall heart size and pulmonary vascularity are within normal limits. There is continued elevation of right hemidiaphragm. There is mild left basilar atelectasis and/or pneumonitis without consolidation, pneumothorax or significant pleural fluid. IMPRESSION: Slight left basilar atelectasis and/or pneumonitis without other significant change. Dictated by: Dictated on workstation # [id number]
[2019-01-05] MEDS ORDERED: NITROGLYCERIN 0.4 MG SL TABS BTL 25'S SL PRN (07:45)
--- NOTE | 2019-01-05 07:53 | History & Physicial ---
History of Present Illness History of Present Illness Reason for visit/HPI Patient brought to the emergency room by daughter. Patient complaining of chest pain radiating to the jaw Patient felt like she was going to faint. Pain was in center of chest. Patient has a history of atrial fibrillation. 2 nights ago patient's heart was irregular and then calm down. Patient got chest pain was hard to breathe. Patient uses aspirin for blood thinner. At home patient felt nauseated. Patient has refused to take eliquis Date of Admission Jan 05, 2019 at 05:56 Time Seen by a Provider: 07:48 I consulted on this patient on 01/05/19 07:48 Attending Physician Cameron Cintron DO Admitting Physician Cameron Cintron DO Consult Allergies and Home Medications Allergies Coded Allergies: tolmetin (Verified Allergy, Unknown, 08/19/15) Home Medications Alprazolam 0.25 Mg Tablet, 0.25 MG PO BID PRN for ANXIETY, (Reported) Aspirin 81 Mg Tab.chew, 81 MG PO DAILY Prescribed by: RUBI BERMUDEZ on 07/14/16 0959 Betamethasone/Propylene Glyc 15 Gm Cream..g., TOP BID PRN for ITCHING, (Repo rted) Calcium Carbonate/Vitamin D3 1 Each Tablet, 1 TAB PO BID, (Reported) Diltiazem HCl 120 Mg Cap.er.24h, 120 MG PO DAILY, (Reported) Enalapril Maleate 20 Mg Tablet, 20 MG PO BID, (Reported) Furosemide 40 Mg Tablet, 40 MG PO DAILY, (Reported) Furosemide 40 Mg Tablet, 40 MG PO DAILY PRN for 2LB WEIGHT GAIN IN 24 HOURS, (Reported) TAKES AN ADDITIONAL TABLET DAILY IF MORE THAN A 2 POUND WEIGHT GAIN IN A 24 HOURS PERIOD Loratadine 10 Mg Tablet, 10 MG PO DAILY, (Reported) Metoprolol Tartrate 50 Mg Tablet, 50 MG PO BID, (Reported) Mu-Vits-Min Th/Lycopene/Lutein 1 Each Tablet, 1 TAB PO DAILY, (Reported) Potassium Chloride 20 Meq Tab.er.prt, 20 MEQ PO BID, (Reported) Pravastatin Sodium 40 Mg Tablet, 40 MG PO HS, (Reported) Sertraline HCl 25 Mg Tablet, 25 MG PO DAILY, (Reported) Tramadol HCl 50 Mg Tablet, 50 MG PO BID PRN for PAIN, (Reported) Trazodone HCl 50 Mg Tablet, 25-50 MG PO HS PRN for SLEEP, (Reported) TAKES 1/2 TO 1 (50MG) TABLET Patient Home Medication List Home Medication List Reviewed: No Past Kniejeu-Fxyyah-Wixtws Hx Patient Social History Marrital Status: Employed/Student: employed Alcohol Use: Denies Use Recreational Drug Use: No Smoking Status: Never a Smoker 2nd Hand Smoke Exposure: No Recent Foreign Travel: No Contact w/other who traveled: No Recent Hopitalizations: No Recent Infectious Disease Expo: No Immunizations Up To Date Tetanus Booster (TDap): Unknown Pediatric: No Date of Pneumonia Vaccine: Apr 16, 2011 Date of Influenza Vaccine: May 04, 2016 Seasonal Allergies Seasonal Allergies: Yes Surgeries Yes (CARDIAC CATHS--NO INTERVENTION--LAST ONE HERE 2015) Cardiac, Gallbladder, Hysterectomy Respiratory No Cardiovascular Yes Atrial Fibrillation, Chronic Edema/Swelling, Coronary Artery Disease, High Cholesterol, Hypertension, Peripheral Vascular, Valvular Heart Disease Neurological Yes (SUBARACHNOID BLEED 2017 DUE TO A FALL/HITTING HER HEAD) Reproductive System : No Hx Reproductive Disorders: No Sexually Transmitted Disease: No HIV/AIDS: 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, 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 Genitourinary No Gastrointestinal Yes Gastroesophageal Reflux Musculoskeletal Yes Arthritis, Chronic Back Pain Endocrine History of Endocrine Disorders: No HEENT History of HEENT Disorders: Yes HEENT Disorders: Cataract Cancer No Psychosocial History of Psychiatric Problem: Yes Behavioral Health Disorders: Anxiety, Depression Integumentary History of Skin or Integumenta: Yes (CELLULITIS) Blood Transfusions History of Blood Disorders: No Adverse Reaction to a Blood Tr: No Family Medical History Significant Family History: No Pertinent Family Hx Family Hx: Diabetes mellitus 19 MOTHER G8 BROTHER G8 SISTER G8 SISTER Review of Systems Constitutional: weakness, other ([place] like fainting) EENTM: no symptoms reported Respiratory: no symptoms reported Cardiovascular: chest pain, other (Atrial fibrillation history) Gastrointestinal: no symptoms reported Genitourinary: no symptoms reported : No Physical Exam Vital Signs Vital Signs - First Documented 01/05/19 01/05/19 00:54 01:21 Temp 97.6 Pulse 70 Resp 18 B/P (MAP) 119/49 (72) O2 Flow Rate 2.00 Capillary Refill : Less Than 3 Seconds Height, Weight, BMI Height: 5'7.00" Weight: 170lbs. 0.0oz. 77.565696ad; 27.3 BMI Method:Stated General Appearance: No Apparent Distress, WD/WN Eyes: Bilateral Eye Normal Inspection HEENT: Normal ENT Inspection Neck: Full Range of Motion, Normal Inspection Respiratory: No Accessory Muscle Use, No Respiratory Distress, Decreased Breath Sounds Cardiovascular: Regular Rate, Rhythm, No Murmur Gastrointestinal: Non Tender, Soft Assessment/Plan Assessment and Plan Pulmonary embolism left small. Chest pain. Valvular heart disease. Hypertension. History of proximal atrial fibrillation. Hypertension. Coronary artery disease Admission Diagnosis Admission Status: Inpatient Order (span 2 midnights) Reason for Inpatient Admission: Chest pain. Pulmonary embolism. Paroxysmal atrial fibrillation Clinical Quality Measures AMI/AHF: ASA po Prior to arrival: CAMERON Zeng DO Jan 05, 2019 07:53
[2019-01-05] MEDS ORDERED: CATHETER FLUSH 10 ML SYR IV PRN (08:00)
[2019-01-05] MEDS ORDERED: morphine INJ 4 MG/ML 1 ML (VIAL/SYRINGE) IV PRN (08:00)
--- NOTE | 2019-01-05 08:06 | Consultation-Cardiology ---
HPI-Cardiology Cardiology Consultation: Date of Consultation 01/05/19 Time Seen by a Provider: 08:30 Date of Admission 01-04-19 Attending Physician Cameron Cintron DO Admitting Physician Cameron Cintron DO Consulting Physician Cheyanne Espino MD HPI: Chief Complaint: Pulmonary Embolism Ms. Cardenas is a 78 year old female who has been admitted to ICU 2 from the ED. 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 She reports she felt some SOB. She states since it was the end of her shift she finished out her evening and then went home. She reports at home she continued to have chest pressure which was worse with a deep breath. She reports continued dyspnea. She states she felt nauseated and weak. She denies any syncope or near syncope. She reports she had a feeling of persistent palpitations the night before which made it difficult for her sleep. She reports when she got up the next morning the palpitations resolved. She has a known h/o PAF. She states she continues to have some mild chest heaviness and worsening discomfort with a deep breath. She feels her SOB has improved. She reports chronic bilat LE swelling, L>R which she feels has been present for several years and is unchanged. Review of Systems-Cardiology Review of Systems Constitutional: No chills, No fever; lightheadedness Eyes: No vision change Ears/Nose/Throat: No epistaxis, No recent hearing loss Respiratory: As described under HPI Cardiovascular: As described under HPI Gastrointestinal: No constipation, No diarrhea; nausea; No vomiting Genitourinary: No dysuria, No hematuria : No Musculoskeletal: joint pain (chronic joint) Skin: No rash on exposed areas, No ulcerations on exposed areas Psychiatric/Neurological: No anxiety, No depression, No seizure, No focal weakness, No syncope Hematologic: No bleeding abnormalities [id number]-[id number] Hx Patient Social History Marrital Status: Employed/Student: employed Alcohol Use: Denies Use Recreational Drug Use: No Smoking Status: Never a Smoker 2nd Hand Smoke Exposure: No Recent Foreign Travel: No Recent Infectious Disease Expo: No Hospitalization with Isolation: Denies Immunizations Up To Date Tetanus Booster (TDap): Unknown Date of Pneumonia Vaccine: Apr 16, 2011 Date of Influenza Vaccine: May 04, 2016 Past Medical History PMH As described under Assessment. Family Medical History Family Medical History: She denies any family h/o CAD. Family History: Diabetes mellitus 19 MOTHER G8 BROTHER G8 SISTER G8 SISTER Allergies and Home Medications Allergies Coded Allergies: tolmetin (Verified Allergy, Unknown, 08/19/15) Home Medications Alprazolam 0.25 Mg Tablet, 0.25 MG PO BID PRN for ANXIETY, (Reported) Aspirin 81 Mg Tab.chew, 81 MG PO DAILY, (Reported) Atorvastatin Calcium 40 Mg Tablet, 40 MG PO HS, (Reported) Calcium Carbonate/Vitamin D3 1 Each Tablet, 1 TAB PO BID, (Reported) Diltiazem HCl 180 Mg Cap.er.24h, 180 MG PO DAILY, (Reported) Enalapril Maleate 20 Mg Tablet, 20 MG PO BID, (Reported) Furosemide 40 Mg Tablet, 40 MG PO DAILY, (Reported) Furosemide 40 Mg Tablet, 40 MG PO DAILY PRN for 2LB WEIGHT GAIN IN 24 HOURS, (Reported) TAKES AN ADDITIONAL TABLET DAILY IF MORE THAN A 2 POUND WEIGHT GAIN IN A 24 HOURS PERIOD Loratadine 10 Mg Tablet, 10 MG PO DAILY, (Reported) Metoprolol Tartrate 50 Mg Tablet, 50 MG PO BID, (Reported) Multivit-Min/FA/Lycopene/Lut 1 Each Tablet, 1 TAB PO DAILY, (Reported) Omeprazole 40 Mg Capsule.dr, 40 MG PO DAILY, (Reported) Potassium Chloride 10 Meq Tablet.er, 10 MEQ PO BID, (Reported) Promethazine HCl 25 Mg Tablet, 25 MG PO TID PRN for NAUSEA/VOMITING-2ND LINE, (Reported) Sertraline HCl 25 Mg Tablet, 25 MG PO DAILY, (Reported) Tramadol HCl 50 Mg Tablet, 50 MG PO BID PRN for PAIN-MODERATE, (Reported) Physical Exam-Cardiology Physical Exam Vital Signs/I&O 01/05/19 01/05/19 01/05/19 01/05/19 07:05 07:30 07:30 07:45 Temp 98.2 97.0 Pulse 71 61 Resp 20 B/P (MAP) 104/54 (71) 120/54 (76) Pulse Ox 92 96 O2 Delivery Room Air Nasal Cannula Nasal Cannula O2 Flow Rate 1.00 1.00 01/05/19 01/05/19 01/05/19 01/05/19 07:55 08:00 08:15 09:00 Pulse 57 59 65 65 B/P (MAP) 120/51 (74) 124/48 (73) 130/55 (80) Pulse Ox 95 96 94 O2 Delivery Nasal Cannula Nasal Cannula Nasal Cannula O2 Flow Rate 1.00 1.00 1.00 01/05/19 01/05/19 01/05/19 01/05/19 09:24 10:00 11:00 11:30 Temp 98.9 Pulse 63 72 B/P (MAP) 113/42 (65) Pulse Ox 95 96 O2 Delivery Nasal Cannula Nasal Cannula Nasal Cannula O2 Flow Rate 1.00 1.00 1.00 01/05/19 01/05/19 01/05/19 01/05/19 12:00 12:00 12:45 15:30 Temp 98.8 Pulse 74 68 124 Resp 16 B/P (MAP) 118/72 (87) 148/63 (91) Pulse Ox 96 93 O2 Delivery Nasal Cannula Nasal Cannula Nasal Cannula O2 Flow Rate 1.00 1.00 1.00 01/05/19 01/05/19 16:00 16:00 Pulse 112 B/P (MAP) 148/63 (91) O2 Delivery Nasal Cannula Nasal Cannula O2 Flow Rate 1.00 1.00 Capillary Refill : Less Than 3 Seconds Constitutional: AAO x 3, well-developed, well-nourished HEENT: PERRL, oral hygience is good Neck: No carotid bruit; carotid pulses are 2 + bilaterally Respiratory: No accessory muscle use, No respiratory distress; chest expansion is symmetric, chest is bilaterally symmetric, other (good air entry) Cardiovascular: regular rate-rhythm; No JVD; S1 and S2 Gastrointestinal: No tender; soft, round, audible bowel sounds Rectal: deferred Extremities: other (mild bilat LE swelling) Neurologic/Psychiatric: grossly intact, power is 5/5 both on sides Skin: No rash on exposed areas, No ulcerations on exposed areas Data Review Labs Laboratory Tests 01/05/19 01:02: White Blood Count 16.6H, Red Blood Count 4.14L, Hemoglobin 12.3, Hematocrit 36, Mean Corpuscular Volume 88, Mean Corpuscular Hemoglobin 30, Mean Corpuscular Hemoglobin Concent 34, Red Cell Distribution Width 13.3, Platelet Count 270, Mean Platelet Volume 9.9, Neutrophils (%) (Auto) 78H, Lymphocytes (%) (Auto) 12, Monocytes (%) (Auto) 9, Eosinophils (%) (Auto) 1, Basophils (%) (Auto) 0, Neutrophils # (Auto) 13.0H, Lymphocytes # (Auto) 1.9, Monocytes # (Auto) 1.4H, Eosinophils # (Auto) 0.2, Basophils # (Auto) 0.0, Neutrophils % (Manual) 81, Lymphocytes % (Manual) 12, Monocytes % (Manual) 5, Eosinophils % (Manual) 1, Basophils % (Manual) 0, Band Neutrophils 1, Elliptocytes SLIGHT, Prothrombin Time 13.7, INR Comment 1.0, Activated Partial Thromboplast Time 33, Sodium Level 141, Potassium Level 3.7, Chloride Level 107, Carbon Dioxide Level 20L, Anion Gap 14, Blood Urea Nitrogen 32H, Creatinine 0.84, Estimat Glomerular Filtration Rate > 60, BUN/Creatinine Ratio 38, Glucose Level 156H, Calcium Level 9.5, Corrected Calcium 9.3, Magnesium Level 1.8, Total Bilirubin 0.4, Aspartate Amino Transf (AST/SGOT) 25, Alanine Aminotransferase (ALT/SGPT) 24, Alkaline Phosphatase 78, Myoglobin 133.7H, Troponin I < 0.028, B-Type Natriuretic Peptide 71.7, Total Protein 7.2, Albumin 4.2, Amylase Level 41, Lipase 18 01/05/19 07:40: Prothrombin Time 17.1H, INR Comment 1.3, Activated Partial Thromboplast Time 57H , Myoglobin 147.0H, Troponin I 0.031H 01/05/19 11:50: Glucometer 104 01/05/19 12:25: Urine Color YELLOW, Urine Clarity CLEAR, Urine pH 5, Urine Specific [place] 1.015L, Urine Protein NEGATIVE, Urine Glucose (UA) NEGATIVE, Urine Ketones NEGATIVE, Urine Nitrite NEGATIVE, Urine Bilirubin NEGATIVE, Urine Urobilinogen NORMAL, Urine Leukocyte Esterase NEGATIVE, Urine RBC (Auto) 2+H, Urine RBC 2-5H, Urine WBC RARE, Urine Squamous Epithelial Cells 0-2, Urine Crystals NONE, Urine Bacteria NEGATIVE, Urine Casts NONE, Urine Mucus NEGATIVE, Urine Culture Indicated NO 01/05/19 13:55: Troponin I 0.047H 01/05/19 16:00: Glucometer 115H Radiology NAME: FARSHAD CARDENAS [facility] REC#: [id number] PT STATUS: ADM Jordy : 1940 PHYSICIAN: LUBA ROMERO DO ADMIT DATE: 01/05/19/ICU Draft Date of Exam:01/05/19 CT ANGIO CHEST W PROCEDURE: CT angiography of the chest with contrast. TECHNIQUE: Multiple contiguous axial images were obtained through the chest after uneventful bolus administration of intravenous contrast. 2D reconstructed CTA MIP acquisitions were also performed. Auto Exposure Controls were utilized during the CT exam to meet ALARA standards for radiation dose reduction. INDICATION: Chest pain and shortness of breath. FINDINGS: There is a small subsegmental pulmonary embolism in the left lower lobe. There are no other filling defects seen within the pulmonary arteries. The thoracic aorta is normal in caliber without evidence of dissection. Heart size is normal. There is no pathologically enlarged adenopathy in the chest. There is dependent atelectasis in lung bases bilaterally. There is no pleural or pericardial fluid. There is no pneumothorax. The visualized intra-abdominal structures are unremarkable. There are degenerative changes in the spine. IMPRESSION: Left lower lobe segmental/subsegmental pulmonary embolism. Dependent atelectasis in the lung bases bilaterally. Dictated on workstation # [id number] Dict: 01/05/1941 Trans: 01/05/19 [id number] Interpreted by: KENDRICK SMITH MD Electronically signed by: ECG Impression ECG Initial ECG Rhythm: Normal Sinus A/P-Cardiology Assessment/Admission Diagnosis Left lower lobe segmental/subsegmental pulmonary embolism per CTA of 01-04-19 Minimal troponin elevation (Type 2 ME) likely secondary to PE Palpitations, stable. PAF and MAT, brief episodes documented on a Holter of 06/16/16. H/o one episode of atrial fibrillation in October 2011 Sleep apnea - CPAP tx - managed by Dr. Sue Episode of ac diastolic CHF on 07/06/16 - clinically compensated Card cath of 07/14/16 showed mild CAD, mild to mod elev of LVEDP, 30% R renal artery stenosis, no sgnificant stenosis of the L renal artery, some calc of the thoracic aorta Subarachnoid hemorrhage over the left frontotemporal region per CT of the brain on March 2017, for which she was seen at [facility] (no surgery required). This was after a fall Weakness, tiredness and exertional shortness of breath MPI of 11/29/18: no evid of ischemia or infarction, LVEF 79% Echo of 11/30/18: LVEF 60-65%, mild MR, sigmoid septum w/o any LVOT obstruction, RVSP 35 mmHg Mild carotid arterial disease on carotid u/s of 11/21/18 Previously she has refusesd OAC other than ASA 81 mg (aware of the implications of her decision) Peripheral angio of 08/27/15 showed no significant abdominal aortic or leg arterial disease Hypertension H/o hyperlipidemia Discussion and Recomendations Left lower lobe PE PAF for which OAC has been strongly advised in the past, however she has only been agreeable to ASA 81mg. She has been started on OAC with Eliquis. She is agreeable to continue Mild troponin elevation likely d/t acute PE Monitor on tele Continue home medications Further recs will be based on her hospital course Clinical Quality Measures AMI/AHF: ASA po Prior to arrival: YESSENIA Chaudhari Jan 05, 2019 08:06
[2019-01-05 08:07] LABS: INR 1.3 (0.8-1.4); PROTHROMBIN TIME PATIENT 17.1 SEC (12.2-14.7)
[2019-01-05] MEDS ORDERED: ATOR40TA70 PO (09:01)
[2019-01-05] MEDS ORDERED: PROM25TA14 PO (09:01)
[2019-01-05] MEDS ORDERED: DILT180C54 PO (09:01)
[2019-01-05] MEDS ORDERED: MULT-1029 PO (09:01)
[2019-01-05] MEDS ORDERED: OMEP40CA36 PO (09:01)
[2019-01-05] MEDS ORDERED: POTA10TA10 PO (09:01)
[2019-01-05] MEDS ORDERED: ASPI-999 PO (09:01)
[2019-01-05] MEDS ORDERED: LORA10TA7 PO (09:01)
--- NOTE | 2019-01-05 09:03 | NUR ---
WENT OVER THE BOTTLES THE PATIENT BROUGHT IN WELL THE EXT MED HX. SHE VERIFIED HOW SHE TAKES THEM. IN ADDITION TO WHAT IS SHOWN ON THE EXT MED HX SHE HAS BOTTLES FROM [place] FOR: 12-29-18 ASPIRIN 81MG CHEW DAILY #30 11-24-18 PROMETHAZINE 25MG TID PRN #6 4 LORATADINE 10MG DAILY #90 SHE TAKES A [employer] AND CALCIUM +D OTC, SHE HAS ALL OF HER MEDICATIONS HERE WITH HER EXCEPT THESE TWO OTC MEDS.
[2019-01-05 12:35] LABS: BILIRUBIN,URINE NEGATIVE (NEGATIVE); CLARITY,URINE CLEAR; COLOR,URINE YELLOW; GLUCOSE, URINE (UA) NEGATIVE (NEGATIVE); KETONES,URINE NEGATIVE (NEGATIVE); LEUKOCYTE ESTERASE ,URINE NEGATIVE (NEGATIVE); NITRITE,URINE NEGATIVE (NEGATIVE); PH,URINE 5 (5-9); PROTEIN,URINE NEGATIVE (NEGATIVE); UROBILINOGEN,URINE NORMAL (NORMAL)
[2019-01-05 12:43] LABS: BACTERIA,URINE NEGATIVE /HPF; SQUAMOUS EPITHELIAL CELL,UR 0-2 /HPF; WBC,URINE RARE /HPF
[2019-01-05] MEDS: CATHETER FLUSH 10 ML SYR IV SCH ×2 (14:20→23:57)
--- NOTE | 2019-01-05 14:34 | NUR ---
Troponin results called to Dr Espino.
[2019-01-05] MEDS ORDERED: ALPRAZolam 0.25 MG (XANAX) TAB PO PRN (15:45)
[2019-01-05] MEDS ORDERED: meTOprolol TARTRATE 50 MG (LOPRESSOR) TAB ONE (16:04)
--- NOTE | 2019-01-05 16:07 | Consultation-Cardiology ---
HPI-Cardiology Cardiology Consultation: Date of Consultation 01/05/19 Time Seen by a Provider: 09:20 Date of Admission Attending Physician Cameron Cintron DO Admitting Physician Cameron Cintron DO Consulting Physician RUBI BERMUDEZ MD, MA, FACP, FACC, FSCAI, CCDS Physician requesting consult: Dr Cintron HPI: Chief Complaint: Reason for consultation: Pulmonary Embolism Ms. Cardenas is a 78 year old female who has been admitted to ICU 2 from the ED. 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 She reports she felt some SOB. She states since it was the end of her shift she finished out her evening and then went home. She reports at home she continued to have chest pressure which was worse with a deep breath. She reports continued dyspnea. She states she felt nauseated and weak. She denies any syncope or near syncope. She reports she had a feeling of persistent palpitations the night before which made it difficult for her sleep. She reports when she got up the next morning the palpitations resolved. She has a known h/o PAF. She states she continues to have some mild chest heaviness and worsening discomfort with a deep breath. She feels her SOB has improved. She reports chronic bilat LE swelling, L>R which she feels has been present for several years and is unchanged. Review of Systems-Cardiology Review of Systems Constitutional: No chills, No fever; lightheadedness Eyes: No vision change Ears/Nose/Throat: No epistaxis, No recent hearing loss Respiratory: As described under HPI Cardiovascular: As described under HPI Gastrointestinal: No constipation, No diarrhea; nausea; No vomiting Genitourinary: No dysuria, No hematuria : No Musculoskeletal: joint pain (chronic joint) Skin: No rash on exposed areas, No ulcerations on exposed areas Psychiatric/Neurological: No anxiety, No depression, No seizure, No focal weakness, No syncope Hematologic: No bleeding abnormalities KFI-Wuotyw-Wpuzfq Hx Patient Social History Marrital Status: Employed/Student: employed Alcohol Use: Denies Use Recreational Drug Use: No Smoking Status: Never a Smoker 2nd Hand Smoke Exposure: No Recent Foreign Travel: No Recent Infectious Disease Expo: No Hospitalization with Isolation: Denies Immunizations Up To Date Tetanus Booster (TDap): Unknown Date of Pneumonia Vaccine: Apr 16, 2011 Date of Influenza Vaccine: May 04, 2016 Past Medical History PMH As described under Assessment. Family Medical History Family Medical History: She denies any family h/o CAD. Family History: Diabetes mellitus 19 MOTHER G8 BROTHER G8 SISTER G8 SISTER Allergies and Home Medications Allergies Coded Allergies: tolmetin (Verified Allergy, Unknown, 08/19/15) Home Medications Alprazolam 0.25 Mg Tablet, 0.25 MG PO BID PRN for ANXIETY, (Reported) Aspirin 81 Mg Tab.chew, 81 MG PO DAILY, (Reported) Atorvastatin Calcium 40 Mg Tablet, 40 MG PO HS, (Reported) Calcium Carbonate/Vitamin D3 1 Each Tablet, 1 TAB PO BID, (Reported) Diltiazem HCl 180 Mg Cap.er.24h, 180 MG PO DAILY, (Reported) Enalapril Maleate 20 Mg Tablet, 20 MG PO BID, (Reported) Furosemide 40 Mg Tablet, 40 MG PO DAILY, (Reported) Furosemide 40 Mg Tablet, 40 MG PO DAILY PRN for 2LB WEIGHT GAIN IN 24 HOURS, (Reported) TAKES AN ADDITIONAL TABLET DAILY IF MORE THAN A 2 POUND WEIGHT GAIN IN A 24 HOURS PERIOD Loratadine 10 Mg Tablet, 10 MG PO DAILY, (Reported) Metoprolol Tartrate 50 Mg Tablet, 50 MG PO BID, (Reported) Multivit-Min/FA/Lycopene/Lut 1 Each Tablet, 1 TAB PO DAILY, (Reported) Omeprazole 40 Mg Capsule.dr, 40 MG PO DAILY, (Reported) Potassium Chloride 10 Meq Tablet.er, 10 MEQ PO BID, (Reported) Promethazine HCl 25 Mg Tablet, 25 MG PO TID PRN for NAUSEA/VOMITING-2ND LINE, (Reported) Sertraline HCl 25 Mg Tablet, 25 MG PO DAILY, (Reported) Tramadol HCl 50 Mg Tablet, 50 MG PO BID PRN for PAIN-MODERATE, (Reported) Patient Home Medication List Home Medication List Reviewed: Yes Physical Exam-Cardiology Physical Exam Vital Signs/I&O 01/05/19 01/05/19 01/05/19 01/05/19 07:05 07:30 07:30 07:45 Temp 98.2 97.0 Pulse 71 61 Resp 20 B/P (MAP) 104/54 (71) 120/54 (76) Pulse Ox 92 96 O2 Delivery Room Air Nasal Cannula Nasal Cannula O2 Flow Rate 1.00 1.00 01/05/19 01/05/19 01/05/19 01/05/19 07:55 08:00 08:15 09:00 Pulse 57 59 65 65 B/P (MAP) 120/51 (74) 124/48 (73) 130/55 (80) Pulse Ox 95 96 94 O2 Delivery Nasal Cannula Nasal Cannula Nasal Cannula O2 Flow Rate 1.00 1.00 1.00 01/05/19 01/05/19 01/05/19 01/05/19 09:24 10:00 11:00 11:30 Temp 98.9 Pulse 63 72 B/P (MAP) 113/42 (65) Pulse Ox 95 96 O2 Delivery Nasal Cannula Nasal Cannula Nasal Cannula O2 Flow Rate 1.00 1.00 1.00 01/05/19 01/05/19 01/05/19 01/05/19 12:00 12:00 12:45 15:30 Temp 98.8 Pulse 74 68 124 Resp 16 B/P (MAP) 118/72 (87) 148/63 (91) Pulse Ox 96 93 O2 Delivery Nasal Cannula Nasal Cannula Nasal Cannula O2 Flow Rate 1.00 1.00 1.00 01/05/19 16:00 O2 Delivery Nasal Cannula O2 Flow Rate 1.00 Capillary Refill : Less Than 3 Seconds Constitutional: AAO x 3, well-developed, well-nourished HEENT: PERRL, oral hygience is good Neck: No carotid bruit; carotid pulses are 2 + bilaterally Respiratory: No accessory muscle use, No respiratory distress; chest expansion is symmetric, chest is bilaterally symmetric, other (good air entry) Cardiovascular: regular rate-rhythm; No JVD; S1 and S2 Gastrointestinal: No tender; soft, round, audible bowel sounds Rectal: deferred Extremities: other (mild bilat LE swelling) Neurologic/Psychiatric: grossly intact, power is 5/5 both on sides Skin: No rash on exposed areas, No ulcerations on exposed areas Data Review Labs Laboratory Tests 01/05/19 01:02: White Blood Count 16.6H, Red Blood Count 4.14L, Hemoglobin 12.3, Hematocrit 36, Mean Corpuscular Volume 88, Mean Corpuscular Hemoglobin 30, Mean Corpuscular Hemoglobin Concent 34, Red Cell Distribution Width 13.3, Platelet Count 270, Mean Platelet Volume 9.9, Neutrophils (%) (Auto) 78H, Lymphocytes (%) (Auto) 12, Monocytes (%) (Auto) 9, Eosinophils (%) (Auto) 1, Basophils (%) (Auto) 0, Neutrophils # (Auto) 13.0H, Lymphocytes # (Auto) 1.9, Monocytes # (Auto) 1.4H, Eosinophils # (Auto) 0.2, Basophils # (Auto) 0.0, Neutrophils % (Manual) 81, Lymphocytes % (Manual) 12, Monocytes % (Manual) 5, Eosinophils % (Manual) 1, Basophils % (Manual) 0, Band Neutrophils 1, Elliptocytes SLIGHT, Prothrombin Time 13.7, INR Comment 1.0, Activated Partial Thromboplast Time 33, Sodium Level 141, Potassium Level 3.7, Chloride Level 107, Carbon Dioxide Level 20L, Anion Gap 14, Blood Urea Nitrogen 32H, Creatinine 0.84, Estimat Glomerular Filtration Rate > 60, BUN/Creatinine Ratio 38, Glucose Level 156H, Calcium Level 9.5, Corrected Calcium 9.3, Magnesium Level 1.8, Total Bilirubin 0.4, Aspartate Amino Transf (AST/SGOT) 25, Alanine Aminotransferase (ALT/SGPT) 24, Alkaline Phosphatase 78, Myoglobin 133.7H, Troponin I < 0.028, B-Type Natriuretic Peptide 71.7, Total Protein 7.2, Albumin 4.2, Amylase Level 41, Lipase 18 01/05/19 07:40: Prothrombin Time 17.1H, INR Comment 1.3, Activated Partial Thromboplast Time 57H , Myoglobin 147.0H, Troponin I 0.031H 01/05/19 11:50: Glucometer 104 01/05/19 12:25: Urine Color YELLOW, Urine Clarity CLEAR, Urine pH 5, Urine Specific [place] 1.015L, Urine Protein NEGATIVE, Urine Glucose (UA) NEGATIVE, Urine Ketones NEGATIVE, Urine Nitrite NEGATIVE, Urine Bilirubin NEGATIVE, Urine Urobilinogen NORMAL, Urine Leukocyte Esterase NEGATIVE, Urine RBC (Auto) 2+H, Urine RBC 2-5H, Urine WBC RARE, Urine Squamous Epithelial Cells 0-2, Urine Crystals NONE, Urine Bacteria NEGATIVE, Urine Casts NONE, Urine Mucus NEGATIVE, Urine Culture Indicated NO 01/05/19 13:55: Troponin I 0.047H A/P-Cardiology Assessment/Admission Diagnosis Left lower lobe segmental/subsegmental pulmonary embolism per CTA of 01-04-19 Minimal troponin elevation (Type 2 [place]) likely secondary to PE Palpitations, stable. PAF and MAT, brief episodes documented on a Holter of 06/16/16. H/o one episode of atrial fibrillation in October 2011 Sleep apnea - CPAP tx - managed by Dr. Sue Episode of ac diastolic CHF on 07/06/16 - clinically compensated Card cath of 07/14/16 showed mild CAD, mild to mod elev of LVEDP, 30% R renal artery stenosis, no sgnificant stenosis of the L renal artery, some calc of the thoracic aorta Subarachnoid hemorrhage over the left frontotemporal region per CT of the brain on March 2017, for which she was seen at [facility] (no surgery required). This was after a fall Weakness, tiredness and exertional shortness of breath MPI of 11/29/18: no evid of ischemia or infarction, LVEF 79% Echo of 11/30/18: LVEF 60-65%, mild MR, sigmoid septum w/o any LVOT obstruction, RVSP 35 mmHg Mild carotid arterial disease on carotid u/s of 11/21/18 Previously she has refusesd OAC other than ASA 81 mg (aware of the implications of her decision) Peripheral angio of 08/27/15 showed no significant abdominal aortic or leg arterial disease Hypertension H/o hyperlipidemia Discussion and Recomendations I had a long and detailed discussion with her and answered her questions Eliquis 10 mg bid for 7 day and then 5 mg bid Monitor on tele Continue home medications Further recs will be based on her hospital course Clinical Quality Measures AMI/AHF: ASA po Prior to arrival: No DVT/VTE Risk/Contraindication: Risk Factor Score Per Nursin RFS Level Per Nursing on Admit: 4+=Very High RUBI BERMUDEZ MD [facility] CCDS Jan 05, 2019 16:07
[2019-01-05] MEDS: DILTIAZEM 180 MG (CARDIZEM CD) CAP PO SCH (16:11)
[2019-01-05] MEDS: FUROSEMIDE 40 MG (LASIX) TAB PO SCH (16:11)
[2019-01-05] MEDS: meTOprolol TARTRATE 50 MG (LOPRESSOR) TAB PO SCH ×2 (16:11→20:09)
[2019-01-05] MEDS ORDERED: SERTRALINE 50 MG (ZOLOFT) TABLET ONE (16:13)
[2019-01-05] MEDS: SERTRALINE 50 MG (ZOLOFT) TABLET PO SCH (16:18)
[2019-01-05] MEDS: CALCIUM CARB + VIT D 600 MG (CALCARB + D) TAB PO SCH (17:39)
[2019-01-05] MEDS: KCL 10 MEQ TAB (MICRO K) PO SCH (17:39)
[2019-01-05] MEDS: APIXABAN 5 MG (ELIQUIS) TABLET PO SCH (17:40)
[2019-01-05] MEDS ORDERED: APIXABAN 5 MG (ELIQUIS) TABLET PO SCH ×2 (18:00→21:00)
[2019-01-05] MEDS: ENALAPRIL 10 MG (VASOTEC) TAB PO SCH (20:10)
[2019-01-05] MEDS ORDERED: NON-FORMULARY MEDICATION 1 EA EA (Calcium Carbonate/Vitamin D3 (Calcium 600 + Vit D Caplet PO SCH (21:00)
[2019-01-05] MEDS ORDERED: NON-FORMULARY MEDICATION 1 EA EA (Enalapril Maleate 20 MG) PO SCH (21:00)
[2019-01-05] MEDS ORDERED: ATORVASTATIN 40 MG (LIPITOR) TABLET PO SCH (21:00)
[2019-01-06] VITALS: BP 116/53
[2019-01-06 04:00] VITALS: BP 122/60
[2019-01-06 04:07] LABS: BASOPHILS % (AUTO) 0 % (0-10); EOSINOPHILS # (AUTO) 0.3 10^3/uL (0.0-0.3); EOSINOPHILS % (AUTO) 3 % (0-10); HEMATOCRIT 37 % (35-52); HEMOGLOBIN 12.4 G/DL (11.5-16.0); LYMPHOCYTES # (AUTO) 2.6 X 10^3 (1.0-4.0); LYMPHOCYTES % (AUTO) 29 % (12-44); MEAN CORPUSCULAR HEMOGLOBIN 30 PG (25-34); MEAN CORPUSCULAR HGB CONC 34 G/DL (32-36); MEAN CORPUSCULAR VOLUME 88 FL (80-99); MEAN PLATELET VOLUME 10.3 FL (7.4-10.4); MONOCYTES # (AUTO) 0.9 X 10^3 (0.0-1.0); MONOCYTES % (AUTO) 10 % (0-12); NEUTROPHILS # (AUTO) 5.1 X 10^3 (1.8-7.8); NEUTROPHILS % (AUTO) 58 % (42-75); PLATELET COUNT 247 10^3/uL (130-400); RED CELL DISTRIBUTION WIDTH 13.4 % (10.0-14.5); WHITE BLOOD COUNT 8.9 10^3/uL (4.3-11.0)
[2019-01-06 04:32] LABS: ALANINE AMINOTRANSFERASE 32 U/L (0-55); ALBUMIN 3.8 GM/DL (3.2-4.5); ALKALINE PHOSPHATASE 73 U/L (40-136); BILIRUBIN,TOTAL 0.8 MG/DL (0.1-1.0); BUN/CREATININE RATIO 25; CALCIUM 9.3 MG/DL (8.5-10.1); CARBON DIOXIDE 22 MMOL/L (21-32); CHLORIDE 109 MMOL/L (98-107); CREATININE SERUM 0.73 MG/DL (0.60-1.30); GFR ESTIMATED > 60; GLUCOSE 100 MG/DL (70-105); POTASSIUM 3.6 MMOL/L (3.6-5.0); SODIUM 143 MMOL/L (135-145); TOTAL PROTEIN 6.8 GM/DL (6.4-8.2)
[2019-01-06 04:40] LABS: CHOLESTEROL 124 MG/DL (< 200); TRIGLYCERIDES 102 MG/DL (<150); VLDL CHOLESTEROL 20 MG/DL (5-40)
[2019-01-06 04:41] LABS: HDL CHOLESTEROL 47 MG/DL (40-60)
[2019-01-06] MEDS: APIXABAN 5 MG (ELIQUIS) TABLET PO SCH (06:40)
[2019-01-06] MEDS: CATHETER FLUSH 10 ML SYR IV SCH ×2 (06:40→12:25)
[2019-01-06] MEDS ORDERED: MULTIVIT W/MINERALS TAB (THERAGRAN M) PO SCH (07:00)
[2019-01-06] MEDS ORDERED: PANTOPRAZOLE 40 MG (PROTONIX) TAB PO SCH (07:00)
--- NOTE | 2019-01-06 07:09 | Diagnostic Imaging Report ---
INDICATION: History of PE. History of valvular heart disease. COMPARISON: 01/05/2019 FINDINGS: Single frontal radiographic view of the chest was obtained and demonstrates borderline prominent appearance of the cardiac silhouette. This may be accentuated by portable technique. Pulmonary vasculature is within normal limits. Lungs show persistent asymmetric elevation of the right hemidiaphragm, but are otherwise clear. There is no focal consolidation, large effusion, nor pneumothorax. Bony structures show no gross acute abnormalities. IMPRESSION: 1. Stable exam of the chest as described above. No evidence of failure or focal infiltrate. Dictated by: Dictated on workstation # [id number]
[2019-01-06] MEDS: DILTIAZEM 180 MG (CARDIZEM CD) CAP PO SCH (07:24)
[2019-01-06] MEDS: KCL 10 MEQ TAB (MICRO K) PO SCH (07:24)
[2019-01-06] MEDS: CALCIUM CARB + VIT D 600 MG (CALCARB + D) TAB PO SCH (07:24)
[2019-01-06] MEDS: FUROSEMIDE 40 MG (LASIX) TAB PO SCH (07:24)
[2019-01-06] MEDS: ENALAPRIL 10 MG (VASOTEC) TAB PO SCH (07:25)
[2019-01-06] MEDS: SERTRALINE 50 MG (ZOLOFT) TABLET PO SCH (07:26)
[2019-01-06] MEDS: meTOprolol TARTRATE 50 MG (LOPRESSOR) TAB PO SCH (07:26)
--- NOTE | 2019-01-06 07:38 | Progress Note (SOAP) ---
Subjective Time Seen by a Provider: 07:31 Subjective/Events-last exam Feeling much better today. Patient states she's 100 percent better. Patient has no chest pain and no problem with breathing deeply. Patient states she does have a little trouble getting up to get around Objective Exam Vital Signs Date Time Temp Pulse Resp B/P (MAP) Pulse Ox O2 Delivery O2 Flow Rate FiO2 01/06/19 07:00 67 01/06/19 04:00 Nasal Cannula 1.00 01/06/19 04:00 64 122/60 (80) 01/06/19 01:00 55 01/06/19 00:00 Nasal Cannula 1.00 01/06/19 00:00 98.0 57 16 116/53 (74) 100 Nasal Cannula 1.00 01/05/19 22:23 Nasal Cannula 1.00 01/05/19 21:27 Nasal Cannula 1.00 01/05/19 20:00 Nasal Cannula 1.00 01/05/19 19:43 98.4 111 14 125/70 (88) 94 Nasal Cannula 1.00 01/05/19 19:00 107 01/05/19 16:00 Nasal Cannula 1.00 01/05/19 16:00 112 148/63 (91) Nasal Cannula 1.00 01/05/19 15:30 98.8 124 16 148/63 (91) 93 Nasal Cannula 1.00 01/05/19 12:45 68 01/05/19 12:00 Nasal Cannula 1.00 01/05/19 12:00 74 118/72 (87) 96 Nasal Cannula 1.00 01/05/19 11:30 98.9 01/05/19 11:00 72 96 Nasal Cannula 1.00 01/05/19 10:00 63 113/42 (65) 95 Nasal Cannula 1.00 01/05/19 09:24 Nasal Cannula 1.00 01/05/19 09:00 65 130/55 (80) 94 Nasal Cannula 1.00 01/05/19 08:15 65 124/48 (73) 96 Nasal Cannula 1.00 01/05/19 08:00 59 120/51 (74) 95 Nasal Cannula 1.00 01/05/19 07:55 57 01/05/19 07:45 61 120/54 (76) 96 Nasal Cannula 1.00 I & O 01/06/19 07:00 Intake Total 720 ml Output Total 2000 ml Balance -1280 ml Capillary Refill : Less Than 3 Seconds General Appearance: No Apparent Distress, WD/WN HEENT: Normal ENT Inspection Neck: Full Range of Motion, Normal Inspection, Non Tender Respiratory: Chest Non Tender, Lungs Clear, No Accessory Muscle Use, No Respiratory Distress Cardiovascular: Irregularly Irregular Gastrointestinal: non tender, soft Results Lab Laboratory Tests 01/06/19 03:23 Laboratory Tests 01/05/19 07:40: Prothrombin Time 17.1H, INR Comment 1.3, Activated Partial Thromboplast Time 57H , Myoglobin 147.0H, Troponin I 0.031H 01/05/19 11:50: Glucometer 104 01/05/19 12:25: Urine Color YELLOW, Urine Clarity CLEAR, Urine pH 5, Urine Specific Breaks 1.015L, Urine Protein NEGATIVE, Urine Glucose (UA) NEGATIVE, Urine Ketones NEGATIVE, Urine Nitrite NEGATIVE, Urine Bilirubin NEGATIVE, Urine Urobilinogen NORMAL, Urine Leukocyte Esterase NEGATIVE, Urine RBC (Auto) 2+H, Urine RBC 2-5H, Urine WBC RARE, Urine Squamous Epithelial Cells 0-2, Urine Crystals NONE, Urine Bacteria NEGATIVE, Urine Casts NONE, Urine Mucus NEGATIVE, Urine Culture I ndicated NO 01/05/19 13:55: Troponin I 0.047H 01/05/19 16:00: Glucometer 115H 01/05/19 20:58: Glucometer 104 01/06/19 03:23: White Blood Count 8.9, Red Blood Count 4.18L, Hemoglobin 12.4, Hematocrit 37, Mean Corpuscular Volume 88, Mean Corpuscular Hemoglobin 30, Mean Corpuscular Hemoglobin Concent 34, Red Cell Distribution Width 13.4, Platelet Count 247, Mean Platelet Volume 10.3, Neutrophils (%) (Auto) 58, Lymphocytes (%) (Auto) 29, Monocytes (%) (Auto) 10, Eosinophils (%) (Auto) 3, Basophils (%) (Auto) 0, Neutrophils # (Auto) 5.1, Lymphocytes # (Auto) 2.6, Monocytes # (Auto) 0.9, Eosinophils # (Auto) 0.3, Basophils # (Auto) 0.0, Sodium Level 143, Potassium Level 3.6, Chloride Level 109H, Carbon Dioxide Level 22, Anion Gap 12, Blood Urea Nitrogen 18, Creatinine 0.73, Estimat Glomerular Filtration Rate > 60, BUN /Creatinine Ratio 25, Glucose Level 100, Calcium Level 9.3, Corrected Calcium 9.5, Total Bilirubin 0.8, Aspartate Amino Transf (AST/SGOT) 28, Alanine Aminotransferase (ALT/SGPT) 32, Alkaline Phosphatase 73, Total Protein 6.8, Albumin 3.8, Triglycerides Level 102, Cholesterol Level 124, LDL Cholesterol Direct 56, VLDL Cholesterol 20, HDL Cholesterol 47 Assessment/Plan Assessment/Plan Assess & Plan/Chief Complaint Small pulmonary embolism left lower lobe. Proximal atrial fibrillation. Palpitations. Sleep apnea. Hypertension. Leaky valve. Patient feeling better today Clinical Quality Measures Admission Status Admission Dx Pulmonary embolism left small. Chest pain. Valvular heart disease. Hypertension. History of proximal atrial fibrillation. Hypertension. Coronary artery disease AMI/AHF: ASA po Prior to arrival: No DVT/VTE Risk/Contraindication: Risk Factor Score Per Nursin RFS Level Per Nursing on Admit: 4+=Very High REY AGUILAR DO Jan 06, 2019 07:38
[2019-01-06 08:04] VITALS: BP 141/55
--- NOTE | 2019-01-06 08:47 | Progress Note-Cardiology ---
Cardiology SOAP Progress Note Subjective: Sitting up on the side of the bed eating morning meal. She states she is feeling much better this morning. No c/o CP or palpitations. Feels SOB has resolved. Daughter x 1 at the bedside. Objective: I&O/Vital Signs 01/05/19 01/06/19 01/06/19 01/06/19 22:23 00:00 00:00 01:00 Temp 98.0 Pulse 57 55 Resp 16 B/P (MAP) 116/53 (74) Pulse Ox 100 O2 Delivery Nasal Cannula Nasal Cannula Nasal Cannula O2 Flow Rate 1.00 1.00 1.00 01/06/19 01/06/19 01/06/19 01/06/19 04:00 04:00 07:00 08:00 Pulse 64 67 B/P (MAP) 122/60 (80) O2 Delivery Nasal Cannula Nasal Cannula O2 Flow Rate 1.00 1.00 01/06/19 01/06/19 08:04 09:00 Pulse 64 B/P (MAP) 141/55 (83) O2 Delivery Nasal Cannula O2 Flow Rate 1.00 01/06/19 00:00 Intake Total 520 ml Output Total 1700 ml Balance -1180 ml Weight (Pounds): 172 Weight (Ounces): 0.0 Weight (Calculated Kilograms): 78.092569 Constitutional: AAO x 3, well-developed, well-nourished Respiratory: No accessory muscle use, No respiratory distress; chest expansion is symmetric, chest is bilaterally symmetric, other (good air entry) Cardiovascular: regular rate-rhythm; No JVD; S1 and S2 Gastrointestional: No tender; soft, round, audible bowel sounds Extremities: other (mild bilat LE swelling) Neurologic/Psychiatric: grossly intact, power is 5/5 both on sides Skin: No rash on exposed areas, No ulcerations on exposed areas Results/Procedures: Labs Laboratory Tests 01/05/19 11:50: Glucometer 104 01/05/19 12:25: Urine Color YELLOW, Urine Clarity CLEAR, Urine pH 5, Urine Specific [place] 1.015L, Urine Protein NEGATIVE, Urine Glucose (UA) NEGATIVE, Urine Ketones NEGATIVE, Urine Nitrite NEGATIVE, Urine Bilirubin NEGATIVE, Urine Urobilinogen NORMAL, Urine Leukocyte Esterase NEGATIVE, Urine RBC (Auto) 2+H, Urine RBC 2-5H, Urine WBC RARE, Urine Squamous Epithelial Cells 0-2, Urine Crystals NONE, Urine Bacteria NEGATIVE, Urine Casts NONE, Urine Mucus NEGATIVE, Urine Culture Indicated NO 01/05/19 13:55: Troponin I 0.047H 01/05/19 16:00: Glucometer 115H 01/05/19 20:58: Glucometer 104 01/06/19 03:23: White Blood Count 8.9, Red Blood Count 4.18L, Hemoglobin 12.4, Hematocrit 37, Mean Corpuscular Volume 88, Mean Corpuscular Hemoglobin 30, Mean Corpuscular Hemoglobin Concent 34, Red Cell Distribution Width 13.4, Platelet Count 247, Mean Platelet Volume 10.3, Neutrophils (%) (Auto) 58, Lymphocytes (%) (Auto) 29, Monocytes (%) (Auto) 10, Eosinophils (%) (Auto) 3, Basophils (%) (Auto) 0, Neutrophils # (Auto) 5.1, Lymphocytes # (Auto) 2.6, Monocytes # (Auto) 0.9, Eosinophils # (Auto) 0.3, Basophils # (Auto) 0.0, Sodium Level 143, Potassium Level 3.6, Chloride Level 109H, Carbon Dioxide Level 22, Anion Gap 12, Blood Urea Nitrogen 18, Creatinine 0.73, Estimat Glomerular Filtration Rate > 60, BUN/Creatinine Ratio 25, Glucose Level 100, Calcium Level 9.3, Corrected Calcium 9.5, Total Bilirubin 0.8, Aspartate Amino Transf (AST/SGOT) 28, Alanine Aminotransferase (ALT/SGPT) 32, Alkaline Phosphatase 73, Total Protein 6.8, Albumin 3.8, Triglycerides Level 102, Cholesterol Level 124, LDL Cholesterol Direct 56, VLDL Cholesterol 20, HDL Cholesterol 47 Procedures NAME: FARSHAD JAIN [facility] REC#: [id number] PT STATUS: ADM Jordy : 1940 PHYSICIAN: REY AGUILAR DO ADMIT DATE: 01/05/19/ICU Signed Date of Exam: 01/06/19 CHEST 1 VIEW, AP/PA ONLY INDICATION: History of PE. History of valvular heart disease. COMPARISON: 01/05/2019 FINDINGS: Single frontal radiographic view of the chest was obtained and demonstrates borderline prominent appearance of the cardiac silhouette. This may be accentuated by portable technique. Pulmonary vasculature is within normal limits. Lungs show persistent asymmetric elevation of the right hemidiaphragm, but are otherwise clear. There is no focal consolidation, large effusion, nor pneumothorax. Bony structures show no gross acute abnormalities. IMPRESSION: 1. Stable exam of the chest as described above. No evidence of failure or focal infiltrate. Dictated by: Dictated on workstation # [id number] Dict: 01/06/19704 Trans: 01/06/19824 Interpreted by: BUSTER MCCOLLUM MD Electronically signed by: BUSTER MCCOLLUM MD 01/06/19824 A/P: Assessment: Left lower lobe segmental/subsegmental pulmonary embolism per CTA of 01-04-19 Minimal troponin elevation (Type 2 IA) likely secondary to PE Palpitations, stable. PAF and MAT, brief episodes documented on a Holter of 06/16/16. H/o one episode of atrial fibrillation in October 2011 Sleep apnea - CPAP tx - managed by Dr. Sue Episode of ac diastolic CHF on 07/06/16 - clinically compensated Card cath of 07/14/16 showed mild CAD, mild to mod elev of LVEDP, 30% R renal artery stenosis, no sgnificant stenosis of the L renal artery, some calc of the thoracic aorta Subarachnoid hemorrhage over the left frontotemporal region per CT of the brain on March 2017, for which she was seen at [facility] (no surgery req uired). This was after a fall Weakness, tiredness and exertional shortness of breath MPI of 11/29/18: no evid of ischemia or infarction, LVEF 79% Echo of 11/30/18: LVEF 60-65%, mild MR, sigmoid septum w/o any LVOT obstruction, RVSP 35 mmHg Mild carotid arterial disease on carotid u/s of 11/21/18 Previously she has refused OAC other than ASA 81 mg (aware of the implications of her decision) Peripheral angio of 08/27/15 showed no significant abdominal aortic or leg arterial disease Hypertension H/o hyperlipidemia Plan: We have a long and detailed discussion with her and her daughter answering her questions Eliquis 10 mg bid for 7 day and then 5 mg bid Monitor on tele Continue current medication regimen Increase activity OK to transfer to medical floor Physician Assessment Physician Assessment Does not report cp or palp or syncope Shortness of breath improved/resolved Wishes to go home Lungs: good bilat air entry Cor: reg Ext: no significant leg edema A&R * As documented in our note above that I updated (italics) and as noted below * Continue current regimen * I had a long and detailed discussion with her and her daughters * Advised vigorous ambulation prior to considering d/c (to see if she needs home oxygen) * Continue Eliquis 10 mg po bid for five and a half more days, then 5 mg po bid * Given h/o fall-related subarach h'sha in the past and lack of significant CAD, it appears reasonable to hold off on ASA now that she is on Eliquis * Close outpt f/u is advised * Dr Adrian covering the Card Svce Clinical Quality Measures AMI/AHF: ASA po Prior to arrival: YESSENIA Chaudhari NETWORK PROJECT MANAGER Jan 06, 2019 08:47 RUBI BERMUDEZ MD FACP FAC CCDS Jan 06, 2019 09:52
[2019-01-06] MEDS ORDERED: ASPIRIN E.C. 81 MG (ECOTRIN) TAB PO SCH (09:00)
[2019-01-06] MEDS ORDERED: NON-FORMULARY MEDICATION 1 EA EA (Omeprazole 40 MG) PO SCH (09:00)
[2019-01-06] MEDS ORDERED: LORATADINE (CLARITIN) 10 MG TAB PO SCH (09:00)
[2019-01-06] MEDS ORDERED: NON-FORMULARY MEDICATION 1 EA EA (Multivit-Min/FA/Lycopene/Lut (Centrum Silver Tablet) 1 T PO SCH (09:00)
[2019-01-06] MEDS ORDERED: NON-FORMULARY MEDICATION 1 EA EA (Diltiazem HCl (Cartia Xt) 180 MG) PO SCH (09:00)
[2019-01-06] MEDS ORDERED: NON-FORMULARY MEDICATION 1 EA EA (Sertraline HCl 25 MG) PO SCH (09:00)
[2019-01-06] MEDS ORDERED: APIX5TAB PO (09:44)
[2019-01-06 12:03] VITALS: BP_SYST 0; BP_SYST 143; BP_DIAS 0; BP_DIAS 90
--- NOTE | 2019-01-06 13:35 | NUR ---
SUSYFARSHAD Roge demonstrates understanding of discharge instructions and accurately returns instructions upon questioning. Copy of Post-Discharge Instructions and Medication Discharge Instructions given to patient and daughter. SUSYFARSHAD Roge is able to manage continuing needs after discharge. Patients belongings returned to patient. Skin dry and intact; no breakdown noted. Patient discharged from [facility] on January 06, 2019 at 1335 . FARSHAD JAIN left floor via wheelchair, accompanied by this RN and Daughter.
--- NOTE | 2019-01-09 07:21 | Clinic Account Progress/Dx ---
Clinic Account Progress/Dx DIAGNOSIS: Time Seen by Provider: 07:20 Left lower lobe pulmonary embolism. Chest pain. Short of breath. Elevated troponin minimal type II SD. Leukocytosis. Falvey heart disease. Hypertension. History of proximal atrial fibrillation. Sleep apnea. Diastolic CHF. Weakness REY AGUILAR DO Jan 09, 2019 07:21
== END 2019-01-06 13:11 | disposition home or self-care (01) ==
LOC: EDUNIT# 00:51 → ER 00:54 → ICU 05:56 → UNDOADMOB 05:56 → ICU 07:30 → UNDODISOB 01-06 13:35
PROVIDERS: ADMIT Family Medicine; ATTEND Family Medicine
DX: I26.99 Other pulmonary embolism without acute cor pulmonale (principal); R07.9 Chest pain, unspecified; R06.02 Shortness of breath; I21.A1 Myocardial infarction type 2; D72.829 Elevated white blood cell count, unspecified; I11.0 Hypertensive heart disease with heart failure; I48.0 Paroxysmal atrial fibrillation; G47.30 Sleep apnea, unspecified; R53.1 Weakness; I50.30 Unspecified diastolic (congestive) heart failure; I38 Endocarditis, valve unspecified; E78.5 Hyperlipidemia, unspecified; I77.9 Disorder of arteries and arterioles, unspecified; Z79.82 Long term (current) use of aspirin; Z79.899 Other long term (current) drug therapy; I25.10 Atherosclerotic heart disease of native coronary artery without angina pectoris; E78.00 Pure hypercholesterolemia, unspecified; I73.9 Peripheral vascular disease, unspecified; K21.9 Gastro-esophageal reflux disease without esophagitis; F41.9 Anxiety disorder, unspecified; F32.9 Major depressive disorder, single episode, unspecified; M19.91 Primary osteoarthritis, unspecified site
CPT/HCPCS: 36415; 71045; 71275; 80053; 80061; 81000; 82150; 82962; 83690; 83735; 83874; 83880; 84484; 85007; 85025; 85027; 85610; 85730; 93005; 93041; 93306; 96360; 96361; 96372

== ENCOUNTER 2019-01-31 07:12 | Day surgery (SDC) | payer MEDICARE ==
[~2019-01-31] VITALS: Ht 170.2 cm; Wt 78.0 kg
[2019-01-31] VITALS (8 sets, daily range): BP systolic 98–145; BP diastolic 40–76
[~2019-01-31 07:12] MED LIST changes: +APIX5TAB PO; +ATOR40TA70 PO; +DILT180C54 PO; +OMEP40CA36 PO; +POTA10TA10 PO; +PROM25TA14 PO
[2019-01-31] MEDS ORDERED: NS IV 1000 ML 1,000 ML ONE (07:14)
[2019-01-31] MEDS ORDERED: NS IV 1000 ML 1,000 ML IV SCH (07:15)
[2019-01-31 07:47] LABS: HEMOGLOBIN 13.2 G/DL (11.5-16.0); RED CELL DISTRIBUTION WIDTH 13.9 % (10.0-14.5); WHITE BLOOD COUNT 8.6 10^3/uL (4.3-11.0)
[2019-01-31] MEDS ORDERED: ASPI-999 PO (07:49)
[2019-01-31] MEDS ORDERED: APIX5TAB PO (07:49)
[2019-01-31] MEDS ORDERED: MIDAZOLAM 2 MG/2 ML (VERSED) VIAL ONE (08:04)
[2019-01-31] MEDS ORDERED: proPOfol 200 MG/20 ML (DIPRIVAN) VIAL IV ONE ×2 (08:04→08:45)
[2019-01-31 08:08] LABS: INR 1.1 (0.8-1.4); PROTHROMBIN TIME PATIENT 14.9 SEC (12.2-14.7)
[2019-01-31 08:12] LABS: ALANINE AMINOTRANSFERASE 21 U/L (0-55); ALBUMIN 4.1 GM/DL (3.2-4.5); ALKALINE PHOSPHATASE 72 U/L (40-136); BILIRUBIN,TOTAL 0.6 MG/DL (0.1-1.0); BUN/CREATININE RATIO 39; CALCIUM 9.7 MG/DL (8.5-10.1); CARBON DIOXIDE 25 MMOL/L (21-32); CHLORIDE 106 MMOL/L (98-107); CHOLESTEROL 164 MG/DL (< 200); CREATININE SERUM 0.85 MG/DL (0.60-1.30); GFR ESTIMATED > 60; GLUCOSE 102 MG/DL (70-105); HDL CHOLESTEROL 43 MG/DL (40-60); POTASSIUM 3.8 MMOL/L (3.6-5.0); SODIUM 142 MMOL/L (135-145); TOTAL PROTEIN 7.2 GM/DL (6.4-8.2); TRIGLYCERIDES 264 MG/DL (<150); VLDL CHOLESTEROL 53 MG/DL (5-40)
--- NOTE | 2019-01-31 09:18 | Cardiac Procedure Note-CS/ASA ---
Pre-Procedure Note Pre-Op Procedure Note H&P Reviewed The H&P was reviewed, patient examined and no changes noted. Date H&P Reviewed: Jan 31, 2019 Time H&P Reviewed: 08:40 Conscious Sedation Pre-Proced Time 08:40 ASA Score 3 For ASA 3 and 4: Consider anesthesia and medical clearance. Also, for patients with a history of failed moderate sedation consider anesthesia. Airway Lungs Heart ASA score ASA 1: a normal healthy patient ASA 2: a patient with a mild systemic disease (mid diabetes, controlled hypertension, obesity ASA 3: a patient with a severe systemic disease that limits activity (angina, COPD, prior Myocardial infarction) ASA 4: a patient with an incapacitating disease that is a constant threat to life (CHF, renal failure) ASA 5: a moribund patient not expected to survive 24 hrs. (ruptured aneurysm) ASA 6: a declared brain- patient whose organs are being harvested. For emergent operations, add the letter E after the classification Mallampati Classification Grade 2 Sedation Plan Analgesia, Amnesia, Plan communicated to team members, Discussed options with patient/fam, Discussed risks with patient/fam The patient is an appropriate candidate to undergo the planned procedure, sedation, and anesthesia. The patient immediately re-assessed prior to indication. RUBI BERMUDEZ MD FACP FAC CCDS Jan 31, 2019 09:18
--- NOTE | 2019-01-31 09:26 | Anesthesia-Procedure Note ---
Procedures/Interventions Procedure Start/Stop/Diagnosis Date of Procedure: Jan 31, 2019 Start Time: 08:55 Stop Time: 09:00 OLIVIA/Cardioversion Anesthesia Type: mac ASA Class: 3 Medications propofol 40 mg IV Monitors and Equipment: Continuous EKG, End Tidal CO2, IV, Pulse Oximeter, V Lead EKG KAIDEN FINLEY CRNA Jan 31, 2019 09:26
--- NOTE | 2019-01-31 09:27 | Anesthesia-General Post-Op ---
MAC Patient Condition Mental Status/LOC: Same as Preop Cardiovascular: Satisfactory Nausea/Vomiting: Absent Respiratory: Satisfactory Pain: Controlled Complications: Absent Post Op Complications Complications None Follow Up Care/Instructions Patient Instructions None needed. Anesthesiology Discharge Order Discharge Order Patient is doing well, no complaints, stable vital signs, no apparent adverse anesthesia problems. No complications reported per nursing. KAIDEN FINLEY CRNA Jan 31, 2019 09:27
--- NOTE | 2019-01-31 14:37 | OPERATIVE REPORT ---
DATE OF SERVICE: 01/31/2019 PREOPERATIVE DIAGNOSIS: Atrial fibrillation. POSTOPERATIVE DIAGNOSIS: Sinus rhythm. PROCEDURE PERFORMED: External electrical cardioversion. The patient is an 79-year-old lady who has paroxysmal atrial fibrillation from which she is quite symptomatic. She has been therapeutically anticoagulated for more than three weeks prior to today's external electrical cardioversion, which was carried out after having obtained an informed consent. The nurse and his chest provided short acting anesthesia and 120 joules synchronized shock was given through external patches, which converted atrial fibrillation to sinus rhythm and the patient tolerated the procedure well. Job ID: [id number] DocumentID: [id number] Dictated Date: 01/31/2019 09:02:26 Emergency Services Dispatcher Date: 01/31/2019 14:36:47 Dictated By: RUBI BERMUDEZ MD, MA, FACP, FACC,
== END 2019-01-31 10:25 | disposition home or self-care (01) ==
LOC: CATH 07:12
PROVIDERS: ATTEND Internal Medicine Cardiovascular Disease
DX: I48.0 Paroxysmal atrial fibrillation (principal); I25.10 Atherosclerotic heart disease of native coronary artery without angina pectoris; I11.0 Hypertensive heart disease with heart failure; I50.32 Chronic diastolic (congestive) heart failure; E78.5 Hyperlipidemia, unspecified; G47.33 Obstructive sleep apnea (adult) (pediatric); Z86.711 Personal history of pulmonary embolism; Z79.01 Long term (current) use of anticoagulants; Z79.82 Long term (current) use of aspirin; Z79.899 Other long term (current) drug therapy
CPT/HCPCS: 36415; 80053; 80061; 85027; 85610; 85730; 87081; 92960; 93005

== ENCOUNTER → 2019-06-19 | Outpatient (CLI) | payer MEDICARE ==
--- NOTE | 2019-06-19 13:22 | Diagnostic Imaging Report ---
INDICATION: Routine screening. Comparison is made with prior mammogram from 04/21/2012. 2-D and 3-D bilateral screening mammography was performed with CAD. Both breasts remain heterogeneously dense, limiting the sensitivity of mammography. Benign parenchymal and vascular calcifications are identified bilaterally. The parenchymal pattern is stable. No mass or malignant-appearing microcalcifications are seen. Axillae are unremarkable. IMPRESSION: BI-RADS Category 2 No mammographic features suspicious for malignancy are identified. ACR BI-RADS Category 2: Benign findings. Result letter will be mailed to the patient. Note: At least 10% of breast cancer is not imaged by mammography. Dictated by: Dictated on workstation # [id number]
== END ==
LOC: RAD 11:31
PROVIDERS: ATTEND Family Medicine
DX: Z12.31 Encounter for screening mammogram for malignant neoplasm of breast (principal)
CPT/HCPCS: 77067

== ENCOUNTER → 2021-03-04 | Outpatient (CLI) | payer MEDICARE, OTHER ==
[~2021-03-04] MED LIST changes: +ALPR.25T PO; -ALPR0.254 PO; +BETA15CR14 TOP; -BETA15CR37 TOP; -ENAL10TA PO; +ENAL10TA16 PO; -ENAL20TA PO; +ENAL20TA16 PO; -OMEP40CA36 PO; +OMEP40CA6 PO; +SERT-412 PO; -SERT25TA5 PO; -TRAZ-222 PO; +TRM50T PO; +TRZ50T PO
--- NOTE | 2021-03-04 18:56 | Diagnostic Imaging Report ---
INDICATION: Lumbar pain, no known injury. COMPARISON: No relevant comparison. FINDINGS: There are degenerative changes of spondylosis and facet arthrosis throughout the visualized lower thoracic and lumbar spine. There is no acute or suspicious endplate irregularity. No evidence for fracture. There is atherosclerotic aortoiliac vascular calcifications without radiographically apparent aneurysm. There is degenerative facet arthrosis greatest at the lower levels. IMPRESSION: Advanced chronic degenerative changes but no fracture or acute malalignment. Dictated by: Dictated on workstation # [id number]
== END ==
LOC: RAD 13:15
PROVIDERS: ATTEND Family Medicine
DX: M47.816 Spondylosis without myelopathy or radiculopathy, lumbar region (principal)
CPT/HCPCS: 72100

== ENCOUNTER → 2021-06-04 | Outpatient (CLI) | payer MEDICARE, OTHER ==
--- NOTE | 2021-06-04 15:59 | Diagnostic Imaging Report ---
CLINICAL INDICATION: Patient with low back pain and right hip pain. EXAM: MRI of the lumbar spine performed without IV contrast. Sequences include sagittal T2, sagittal T1, sagittal T2 fat-sat, and axial T2. COMPARISON: X-ray of the lumbar spine dated 03/04/2021. FINDINGS: There is no acute lumbar spine fracture or dislocation. There is Modic type I degenerative signal changes involving the L2-L3 and L3-L4 endplates. There is no significant paraspinal soft tissue abnormality. There is note of fatty infiltration atrophy of the posterior bilateral lumbar musculature. The visualized portions of the distal thoracic spinal cord, conus medullaris, and cauda equina nerve roots are unremarkable. The conus medullaris tip is seen at the L1-L2 intervertebral level. T12-L1: There is a diffuse disk bulge with moderate loss of disk space height. There is mild bilateral facet arthropathy with ligamentum flavum buckling. There is mild central canal stenosis. There is no significant neural foramen narrowing. L1-L2: There is a diffuse disk bulge with superimposed small disk extrusion/herniation extending into the right foraminal region with roughly 2 mm of cephalad disk migration in the right subarticular region. There is severe stenosis of the right neural foramen region and mild left neural foramen narrowing. There is mild to moderate loss of disk space height. There is mild to moderate central canal stenosis. There is moderate bilateral facet arthropathy and ligamentum flavum buckling. L2-L3: There is diffuse disk bulge with moderate to severe loss of disk space height. There are disk spurs which extend into the right foraminal region. There is mild to moderate right neural foramen narrowing and no significant left neural foramen narrowing. There is moderate bilateral facet arthropathy/hypertrophy and ligamentum flavum buckling. There is prominence of the posterior epidural fat. There is moderate central canal stenosis. L3-L4: There is a diffuse disk bulge with moderate to severe loss of disk space height. There is severe bilateral facet arthropathy/hypertrophy and ligamentum flavum buckling. There is moderate to severe central canal stenosis. There is mild right neural foramen narrowing and no significant left neural foramen narrowing. L4-L5: There is a diffuse disk bulge with moderate loss of disk space height. There are disk spurs extending posteriorly and into the foraminal regions, bilaterally. There is moderate bilateral facet arthropathy/hypertrophy and ligamentum flavum buckling. There is mild central canal stenosis, mild to moderate right neural foramen narrowing and moderate left neural foramen narrowing. L5-S1: There is a subtle diffuse disk bulge. There is a superimposed small disk herniation in the right foraminal region. There are disk spurs in the left foraminal region. There is mild to moderate right neural foramen narrowing and moderate left neural foramen narrowing. There is no significant central canal stenosis. 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 Dictated by: Dictated on workstation # [id number]
== END ==
LOC: RAD 13:15
PROVIDERS: ATTEND Family Medicine
DX: M47.815 Spondylosis without myelopathy or radiculopathy, thoracolumbar region (principal); M47.816 Spondylosis without myelopathy or radiculopathy, lumbar region; M51.25 Other intervertebral disc displacement, thoracolumbar region; M51.26 Other intervertebral disc displacement, lumbar region; M51.27 Other intervertebral disc displacement, lumbosacral region; M48.05 Spinal stenosis, thoracolumbar region; M48.061 Spinal stenosis, lumbar region without neurogenic claudication; M48.07 Spinal stenosis, lumbosacral region
CPT/HCPCS: 72148

== ENCOUNTER 2021-12-13 13:16 | Emergency (ER) | payer MEDICARE ==
[~2021-12-13] VITALS: Ht 167 cm; Wt 77.1 kg
[~2021-12-13 13:16] MED LIST changes: +POTA-179 PO; -POTA20TA15 PO
--- NOTE | 2021-12-13 14:19 | ED Fall/Injury ---
General Chief Complaint: Head/Cervical Problems Stated Complaint: FALL/HEAD INJ/ON BLOOD THINNERS Nursing Triage Note: PT PRESENTS TO ED VIA POV FROM HOME WITH COMPLAINTS OF SWELLING TO POSTERIOR HEAD AFTER FALLING WHILE WALKING UP STEPS AND HITTING HEAD BACKWARDS ONTO CONCRETE. PT DENIES LOC. Source: patient, family Exam Limitations: no limitations History of Present Illness Date Seen by Provider: December 13, 2021 Time Seen by Provider: 13:50 Initial Comments Here with report of injury to the left posterior head. Apparently she was trying to get in her door at her house when she lost balance and fell backwards and hit her head on a concrete planter. She does have a goose egg without lace ration or significant abrasion to the posterior aspect of the scalp on the left side. Denies significant neck pain but may have a little bit of pain on the right side of the neck at the base. She is on apixaban. Denies loss of consciousness. Denies vision problems. Denies any other significant balance problems or injury currently. Occurred: just prior to arrival (Approximately 30 minutes ago) Severity: moderate Injuries/Pain Location: head Context: lost balance Loss of Consciousness: no loss of consciousness Modifying Factors: Improves With Rest Associated Symptoms (Fall): No Abdominal Pain, No Chest Pain, No Confusion; Headache; No Lightheadedness, No Muscle Spasms, No Nausea/Vomiting, No Neck Pain, No Shortness of Air, No Trouble Walking, No Vision Changes Allergies and Home Medications Allergies Coded Allergies: tolmetin (Verified Allergy, Unknown, 08/19/15) Patient Home Medication List Home Medication List Reviewed: Yes ALPRAZolam (Xanax Tablet) 0.25 Mg Tablet, 0.25 MG PO BID PRN for ANXIETY, (Reported) Entered as Reported by: ROBIN ANGELES on 07/14/16 0811 Apixaban (Eliquis) 5 Mg Tablet, 5 MG PO BID, (Reported) Entered as Reported by: ISABEL MEDINA on 01/31/19 0749 Aspirin (Aspirin) 81 Mg Tab.chew, 81 MG PO DAILY, (Reported) Entered as Reported by: ISABEL MEDINA on 01/31/19 0749 Atorvastatin Calcium (Atorvastatin Calcium) 40 Mg Tablet, 40 MG PO HS, (Reported) Entered as Reported by: ROBIN ANGELES on 01/05/19 0901 Calcium Carbonate/Vitamin D3 (Calcium 600 + Vit D Caplet) 1 Each Tablet, 1 TAB PO BID, (Reported) Entered as Reported by: ROBIN ANGELES on 08/19/15 08 Diltiazem HCl (Cartia Xt) 180 Mg Cap.er.24h, 180 MG PO DAILY, (Reported) Entered as Reported by: ROBIN ANGELES on 01/05/19 09 Enalapril Maleate (Enalapril Maleate) 20 Mg Tablet, 20 MG PO BID, (Reported) Entered as Reported by: ROBIN ANGELES on 07/14/16 08 Furosemide (Furosemide) 40 Mg Tablet, 40 MG PO DAILY, (Reported) Entered as Reported by: ROBIN ANGELES on 08/19/15836 Furosemide (Furosemide) 40 Mg Tablet, 40 MG PO DAILY PRN for 2LB WEIGHT GAIN IN 24 HOURS, (Reported) Entered as Reported by: ROBIN ANGELES on 07/14/16 08 Loratadine (Loratadine) 10 Mg Tablet, 10 MG PO DAILY, (Reported) Entered as Reported by: ROBIN ANGELES on 01/05/19900 Metoprolol Tartrate (Metoprolol Tartrate) 50 Mg Tablet, 50 MG PO BID, (Reported) Entered as Reported by: ROBIN ANGELES on 08/19/15 08 Multivit-Min/FA/Lycopene/Lut (Centrum Silver Tablet) 1 Each Tablet, 1 TAB PO DAILY, (Reported) Entered as Reported by: ROBIN ANGELES on 01/05/19900 Omeprazole (Omeprazole) 40 Mg Capsule.dr, 40 MG PO DAILY, (Reported) Entered as Reported by: ROBIN ANGELES on 01/05/19900 Potassium Chloride (Potassium Chloride) 10 Meq Tablet.er, 10 MEQ PO BID, (Reported) Entered as Reported by: ROBIN ANGELES on 01/05/19900 Promethazine HCl (Promethazine Tablet) 25 Mg Tablet, 25 MG PO TID PRN for NAUSEA/VOMITING-2ND LINE, (Reported) Entered as Reported by: ROBIN ANGELES on 01/05/19900 Sertraline HCl (Sertraline HCl) 25 Mg Tablet, 25 MG PO DAILY, (Reported) Entered as Reported by: ROBIN ANGELES on 08/19/15 08 Tramadol HCl (Tramadol HCl) 50 Mg Tablet, 50 MG PO BID PRN for PAIN-MODERATE, (Reported) Entered as Reported by: ROBIN ANGELES on 08/19/15 0842 Review of Systems Review of Systems Constitutional: see HPI; No chills, No fever Eyes: Denies Foreign Body Sensation, Denies Photophobia Ears, Nose, Mouth, Throat: no symptoms reported Respiratory: No cough, No short of breath Cardiovascular: No chest pain, No edema Gastrointestinal: No nausea, No vomiting Genitourinary: no symptoms reported Musculoskeletal: No back pain; neck pain Skin: change in color, lesions Psychiatric/Neurological: Denies Headache, Denies Numbness Past Morkrsj-Gfyywa-Napodf Hx Patient Social History Tobacco Use?: No Substance use?: No Alcohol Use?: No Pt feels they are or have been: No Immunizations Up To Date Tetanus Booster (TDap): Unknown PED Vaccines UTD: No First/Initial COVID19 Vaccinat: YES Second COVID19 Vaccination Junior: YES 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 Seasonal Allergies Seasonal Allergies: Yes Past Medical History Surgery/Hospitalization HX: AFIB, CHF, HTN, HIGH CHOL Surgeries: Yes (CARDIAC CATHS--NO INTERVENTION--LAST ONE HERE 2015) Cardiac, Gallbladder, Hysterectomy Respiratory: No Cardiac: Yes Atrial Fibrillation, Chronic Edema/Swelling, Coronary Artery Disease, High Cholesterol, Hypertension, Peripheral Vascular, Valvular Heart Disease Neurological: Yes (SUBARACHNOID BLEED 2017 DUE TO A FALL/HITTING HER HEAD) 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, 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 Sexually Transmitted Disease: No HIV/AIDS: No Genitourinary: No Gastrointestinal: Yes Gastroesophageal Reflux Musculoskeletal: Yes Arthritis, Chronic Back Pain Endocrine: No HEENT: Yes Cataract Cancer: No Psychosocial: Yes Anxiety, Depression Integumentary: Yes (CELLULITIS) Blood Disorders: No Adverse Reaction/Blood Tranf: No Family Medical History Reviewed Nursing Family Hx Diabetes mellitus 19 MOTHER G8 BROTHER G8 SISTER G8 SISTER No Pertinent Family Hx Physical Exam Vital Signs Vital Signs - First Documented 12/13/21 14:00 Temp 36.5 Pulse 66 Resp 18 B/P (MAP) 146/69 (94) Pulse Ox 95 Capillary Refill : Less Than 3 Seconds Height, Weight, BMI Height: 5'7.00" Weight: 172lbs. 0.0oz. [id number]; 27.00 BMI Method:Stated General Appearance: WD/WN, no apparent distress HEENT: pharynx normal, other (Right pupil may be very slightly larger than the left. Patient has had cataract surgery and needs further cataract surgery to her from the left eye. Denies any significant vision changes currently) Neck: full range of motion, supple, tender lateral (Right-sided) Cardiovascular: regular rate, rhythm, no murmur Respiratory: lungs clear, normal breath sounds Gastrointestinal: non tender, soft Extremities: normal range of motion, non-tender, normal inspection Neurologic/Psychiatric: no motor/sensory deficits, alert, normal mood/affect, oriented x 3 Skin: normal color, warm/dry [place] Coma Score Best Eye Response: (4) Open Spontaneously Best Verbal Response: (5) Oriented Best Motor Response: (6) Obeys Commands Progress/Results/Core Measures Results/Orders My Orders Orders - GIGI SERNA MD Ct Head/Cervical Spine Wo (12/13/21 13:53) Vital Signs/I&O 12/13/21 14:00 Temp 36.5 Pulse 66 Resp 18 B/P (MAP) 146/69 (94) Pulse Ox 95 Blood Pressure Mean: 94 Progress Progress Note : Progress Note Seen and evaluated. CT head and neck ordered. Monitor patient. CT head and neck showed no acute fracture or intracranial hemorrhage. Patient is still acting well. She is going to stay with her son rosemary. This is a reasonable plan. Discharged home with return precautions. Patient and family verbalized understanding of instructions and agreement with plan. Diagnostic Imaging Diagonstic Imaging: CT Plain Films/CT/US/NM/MRI: c-spine, head Comments Draft Date of Exam:12/13/21 CT HEAD/CERVICAL SPINE WO PROCEDURE: CT head and CT cervical spine without contrast. TECHNIQUE: Multiple contiguous axial images were obtained through the brain and cervical spine without the use of intravenous contrast. Sagittal and coronal reformations through the cervical spine were then performed. Auto Exposure Controls were utilized during the CT exam to meet ALARA standards for radiation dose reduction. INDICATION: Fall. Head injury and pain. COMPARISON: CT head without contrast 03/10/2017. FINDINGS: CT head: No intracranial hemorrhage, mass effect, hydrocephalus or extra-axial fluid collections. No CT evidence of a territorial infarction. Osseous structures are intact. Visualized paranasal sinuses and mastoids are clear. Scalp contusion overlying the left parietal convexity. CT cervical spine: Grade 1 anterolisthesis of C3 on C4, C4 on C5 and C5 on C6. Vertebral body heights preserved. No fractures. Moderate spondylotic changes without evidence of high-grade spinal stenosis on noncontrast CT. Biapical scarring. Visualized paravertebral soft tissues are unremarkable. IMPRESSION: 1. Scalp contusion overlying the left parietal convexity. No underlying fractures. 2. No acute intracranial or cervical spine CT findings. Dictated on workstation # [id number] Dict: 12/13/21 1424 Trans: 12/13/21 1434 [facility] [id number] Interpreted by: ALEX MORGAN MD Electronically signed by: Departure Impression Primary Impression: Injury of head and neck Qualified Codes: S09.90XA - Unspecified injury of head, initial encounter; S19.9XXA - Unspecified injury of neck, initial encounter Disposition: HOME, SELF-CARE Condition: Stable Departure-Patient Inst. Decision time for Depature: 14:53 Referrals: REY AGUILAR DO (PCP/Family) Primary Care Physician Patient Instructions: Minor Head Injury, Adult ED, Cervical Muscle Strain (DC) Add. Discharge Instructions: All discharge instructions reviewed with patient and/or family. Voiced understanding. You may take Tylenol/acetaminophen 1000 mg every 6-8 hours as needed for pain. Continue other medications as previously prescribed. Follow-up with your doctor on Wednesday. You may call his office to determine need for appointment. Return for worse pain, vomiting, vision or balance problems, weakness, difficulty with speech, changes in mental status or other concerns as needed. You should rest over the next 24 hours and then return to normal activity slowly after that. Be careful as your balance may be a little off over the next few days due to the head injury. Copy Copies To 1: REY AGUILAR TIMOTHY D MD December 13, 2021 14:19
--- NOTE | 2021-12-13 14:34 | Diagnostic Imaging Report ---
PROCEDURE: CT head and CT cervical spine without contrast. TECHNIQUE: Multiple contiguous axial images were obtained through the brain and cervical spine without the use of intravenous contrast. Sagittal and coronal reformations through the cervical spine were then performed. Auto Exposure Controls were utilized during the CT exam to meet ALARA standards for radiation dose reduction. INDICATION: Fall. Head injury and pain. COMPARISON: CT head without contrast 03/10/2017. FINDINGS: CT head: No intracranial hemorrhage, mass effect, hydrocephalus or extra-axial fluid collections. No CT evidence of a territorial infarction. Osseous structures are intact. Visualized paranasal sinuses and mastoids are clear. Scalp contusion overlying the left parietal convexity. CT cervical spine: Grade 1 anterolisthesis of C3 on C4, C4 on C5 and C5 on C6. Vertebral body heights preserved. No fractures. Moderate spondylotic changes without evidence of high-grade spinal stenosis on noncontrast CT. Biapical scarring. Visualized paravertebral soft tissues are unremarkable. IMPRESSION: 1. Scalp contusion overlying the left parietal convexity. No underlying fractures. 2. No acute intracranial or cervical spine CT findings. Dictated by: Dictated on workstation # [id number]
[2021-12-13 15:11] VITALS: BP 138/54
== END 2021-12-13 15:10 | disposition home or self-care (01) ==
LOC: EDUNIT# 13:16 → ER 13:17
DX: S09.90XA Unspecified injury of head, initial encounter (principal); S19.9XXA Unspecified injury of neck, initial encounter; W18.30XA Fall on same level, unspecified, initial encounter; Y92.008 Other place in unspecified non-institutional (private) residence as the place of occurrence of the external cause
CPT/HCPCS: 70450; 72125

== ENCOUNTER → 2022-09-30 | Outpatient (CLI) | payer MEDICARE | LOC: CARD 11:53 | PROVIDERS: ATTEND Internal Medicine Cardiovascular Disease | DX: R00.2 Palpitations (principal) | CPT/HCPCS: 93225; 93226 ==

== ENCOUNTER → 2022-12-25 | Outpatient (CLI) | payer MEDICARE ==
[~2022-12-25] MED LIST changes: +ENAL-70 PO; -ENAL10TA16 PO; -ENAL20TA16 PO; +ENLP10T PO
--- NOTE | 2022-12-25 16:49 | Diagnostic Imaging Report ---
INDICATION: Coronary artery disease, chest and back pain. EXAMINATION: Two view chest performed. FINDINGS: Lungs clear. No failure, effusion or pneumothorax. IMPRESSION: No acute appearing abnormality. Dictated by: Dictated on workstation # [id number]
== END ==
LOC: RAD 12:14
PROVIDERS: ATTEND Family Medicine
DX: I25.10 Atherosclerotic heart disease of native coronary artery without angina pectoris (principal); M54.9 Dorsalgia, unspecified
CPT/HCPCS: 71046

== ENCOUNTER → 2023-01-06 | Outpatient (CLI) | payer MEDICARE ==
--- NOTE | 2023-01-06 12:51 | Diagnostic Imaging Report ---
Indication: Routine screening. Comparison is made prior mammogram from 06/19/2019. 2-D and 3-D bilateral screening mammography was performed with CAD. The current study was also evaluated with a Computer Aided Detection (CAD) system. Both breasts are heterogeneously dense, limiting the sensitivity of mammography. The parenchymal pattern is stable. No mass or malignant-appearing microcalcifications are seen. There are scattered benign-appearing parenchymal and vascular calcifications. Axillae are unremarkable. IMPRESSION: BI-RADS Category 2 No mammographic features suspicious for malignancy are identified. ACR BI-RADS Category 2: Benign findings. Result letter will be mailed to the patient. Note: At least 10% of breast cancer is not imaged by mammography. Dictated by: Dictated on workstation # [id number]
== END ==
LOC: RAD 11:11
PROVIDERS: ATTEND Family Medicine
DX: Z12.31 Encounter for screening mammogram for malignant neoplasm of breast (principal)
CPT/HCPCS: 77063; 77067

== ENCOUNTER 2023-03-16 08:00 | Day surgery (SDC) | payer MEDICARE ==
[2023-03-16] VITALS (8 sets, daily range): BP systolic 122–137; BP diastolic 51–67
[~2023-03-16] VITALS: Ht 170.2 cm; Wt 77.7 kg
[2023-03-16] MEDS: NS IV 1000 ML 1,000 ML IV SCH ×2 (07:32→08:07)
[2023-03-16 07:36] LABS: HEMATOCRIT 40 % (35-52); HEMOGLOBIN 13.7 g/dL (11.5-16.0); MEAN CORPUSCULAR HEMOGLOBIN 31 pg (25-34); MEAN CORPUSCULAR HGB CONC 34 g/dL (32-36); MEAN CORPUSCULAR VOLUME 90 fL (80-99); MEAN PLATELET VOLUME 10.2 fL (9.0-12.2); PLATELET COUNT 227 10^3/uL (130-400); WHITE BLOOD COUNT 11.4 10^3/uL (4.3-11.0)
[2023-03-16 07:47] LABS: PROTHROMBIN TIME PATIENT 13.2 SEC (12.2-14.7)
[2023-03-16 07:54] LABS: ALBUMIN 4.3 GM/DL (3.2-4.5); BILIRUBIN,TOTAL 0.4 MG/DL (0.1-1.0); CALCIUM 9.9 MG/DL (8.5-10.1); CREATININE SERUM 0.83 MG/DL (0.60-1.30); POTASSIUM 3.8 MMOL/L (3.6-5.0); TOTAL PROTEIN 7.3 GM/DL (6.4-8.2)
[~2023-03-16 08:00] MED LIST changes: +ACET325T38 PO; +CALC-823 PO; +CETI10TA17 PO; +DILT240C90 PO; +HEParin (CATH LAB) 2,000 ML IV ONE; +HEParin 1000 UNIT/ML (10ML VIAL) FOR BOLUS ONE; +LIDOCAINE 1% INJ 20 ML VIAL ONE; +MIDAZOLAM INJ 5 MG/5 ML VIAL ONE; +NITRO DRIP 25000 MCG/D5W 250 ML IV ONE; +NS IV 1000 ML 1,000 ML ONE; +POTA-177 PO; +VERAPAMIL 5 MG/2 ML (CALAN) VIAL IV ONE; +fentaNYL INJECTION 100 MCG/2 ML VIAL ONE
--- NOTE | 2023-03-16 09:16 | Cardiac Procedure Note-CS/ASA ---
Pre-Procedure Note Pre-Op Procedure Note Date of Available H&P: Mar 03, 2023 Date H&P Reviewed: Mar 16, 2023 Time H&P Reviewed: 08:45 History & Physical: H&P Reviewed, No changes noted Moderate Sedation PreProcedure ASA Score 3 Airway Lungs Heart ASA score ASA 1: a normal healthy patient ASA 2: a patient with a mild systemic disease (mid diabetes, controlled hypertension, obesity ASA 3: a patient with a severe systemic disease that limits activity (angina, COPD, prior Myocardial infarction) ASA 4: a patient with an incapacitating disease that is a constant threat to life (CHF, renal failure) ASA 5: a moribund patient not expected to survive 24 hrs. (ruptured aneurysm) ASA 6: a declared brain- patient whose organs are being harvested. For emergent operations, add the letter E after the classification Mallampati Classification Grade 2 Sedation Plan Analgesia, Amnesia, Plan communicated to team members The patient is an appropriate candidate to undergo the planned procedure, sedation, and anesthesia. The patient immediately re-assessed prior to indication. RUBI BERMUDEZ MD FACP [facility] Mar 16, 2023 09:16
--- NOTE | 2023-03-16 09:22 | Cardiac Cath Report ---
CARDIAC CATHETERIZATION DATE OF PROCEDURE: 03/16/23 INDICATION: Chest pain, accelerated idioventricual rhythm, h/o CAD HISTORY: The patient is a 83 year old female with chest pain, accelerated idioventricual rhythm, h/o CAD PROCEDURES PERFORMED: 1. Cor angio 2. LHC 2. LV angio PROCEDURE DESCRIPTION: After informed consent and in the fasting state, left h eart catheterization was performed through the R radial artery utilizing a 6 Swedish system by percutaneous approach. 6F TIG for LCA, 5F JR4 for RCA, 5F JR4 for LHC and LV angio. All catheters were exchanged over a guidewire. HEMODYNAMICS: LVEDP 24 mmHg; no significant pressure gradient on pullback across the aortic valve CORONARY ANGIOGRAPHY: Left main coronary artery: short, ok Left anterior descending coronary artery: mild proximal calcification and mild plaque Left circumflex coronary artery: mild plaque Right coronary artery: dominant, ok LV RAGHAV AP projection: no wall motion abnormality seen; LVEF approx 60% IMPRESSION: 1. Mild CAD 2. LVEDP 24 mmHg 3. LVEF 60% RUBI BERMUDEZ MD FACP [facility] Mar 16, 2023 09:22
--- NOTE | 2023-03-16 09:25 | Discharge Inst-Cardiology ---
Discharge Inst-Cardiac Discharge Medications Continued Medications: Acetaminophen (Tylenol) 325 Mg Tablet 650 MG PO Q6H PRN for PAIN-MILD (1-4), TAB Apixaban (Eliquis) 5 Mg Tablet 5 MG PO BID, TAB Atorvastatin Calcium (Atorvastatin Calcium) 40 Mg Tablet 40 MG PO DAILY, TAB Calcium Carbonate (Calcium) 500 Mg Calcium (1250 Mg) Tablet 500 MG PO BID, TAB Cetirizine HCl (Cetirizine HCl) 10 Mg Tablet 10 MG PO DAILY, TAB Diltiazem HCl (Diltiazem 24Hr Cd) 240 Mg Cap.er.24h 240 MG PO DAILY, CAP Enalapril Maleate (Enalapril Maleate) 20 Mg Tablet 20 MG PO BID, TAB Furosemide (Furosemide) 40 Mg Tablet 40 MG PO DAILY, TAB Furosemide (Furosemide) 40 Mg Tablet 40 MG PO DAILY PRN for 2LB WEIGHT GAIN IN 24 HOURS, TAB TAKES AN ADDITIONAL TABLET DAILY IF MORE THAN A 2 POUND WEIGHT GAIN IN A 24 HOURS PERIOD Metoprolol Tartrate (Metoprolol Tartrate) 50 Mg Tablet 50 MG PO BID, TAB Multivit-Min/FA/Lycopene/Lut (Centrum Silver Tablet) 1 Each Tablet 1 TAB PO DAILY, TAB Omeprazole (Omeprazole) 40 Mg Capsule.dr 40 MG PO DAILY, CAP Potassium Chloride (Potassium Chloride) 10 Meq Tab.er.prt 10 MEQ PO BID Sertraline HCl (Sertraline HCl) 25 Mg Tablet 25 MG PO DAILY, TAB Tramadol HCl (Tramadol HCl) 50 Mg Tablet 50 MG PO TID PRN for PAIN-MODERATE (5-7), TAB RUBI BERMUDEZ MD FACP [facility] Mar 16, 2023 09:25
--- NOTE | 2023-03-16 09:25 | Discharge Inst-Post CATH ---
Discharge Inst-CATH/EP Post Cardiac Cath/EP D/C Inst Follow Up/Plan F/u with Dr Espino in 6 weeks ACTIVITY * Go Home directly and rest. * Limit activity of the leg (or wrist if it was used) for 7 days including aerobics, swimming, jogging, bicycling, etc. * Restrict stair-climbing for 7 days if possible, if not, climb up with your no n-cath leg, then bring together on the same step. * Avoid lifting, pushing, pulling or excessive movement of the affected ext remity for 7 days. * Customary sexual activity may be resumed after 2 days-use caution not to use a position that strains or causes pain to the affected extremity. * No driving for 24 hours. * NO SMOKING. * Avoid straining for bowel movements for 7 days. * Gentle walking on level ground is allowed. * Returning to work will depend on the type of procedure and the results. Your doctor will discuss this with you. CALL YOUR DOCTOR FOR ANY OF THE FOLLOWING: *If bleeding from the puncture site occurs- Apply gentle pressure to site with clean cloth and call your doctor or EMS. * If a knot or lump forms under the skin, increases in size, or causes pain. * If bruising appears to be worsening or moving further down your leg instead of disappearing. * Temperature above 101 F. CARE OF YOUR GROIN INCISION; * Bruising or purple discoloration of the skin near the puncture site is common. * You may shower only, no bathtub bathing for 5 days. Be careful to avoid slipping as your leg may feel stiff. * If a closure device was used on your femoral artery, please see the attached guide regarding care of the device and your leg. * Leave dressing on FOR 24 hours. CARE OF YOUR WRIST INCISION; * Bruising or purple discoloration of the skin near the puncture site is common. * You may shower. * DO NOT submerge wrist. * Leave dressing on FOR 24 hours. RUBI ESPINO MD [facility] Mar 16, 2023 09:25
[2023-03-16] MEDS ORDERED: NS IV 1000 ML 1,000 ML IV SCH (09:30)
[2023-03-16] MEDS ORDERED: PATIENT MAY USE OWN MEDS, ALL PO SCH (09:30)
[2023-03-16] MEDS ORDERED: oxyCODONE/ACETAMINOPHEN 5/325MG TABLET ONE (11:43)
[2023-03-16] MEDS ORDERED: oxyCODONE/ACETAMINOPHEN 5/325MG TABLET PO ONE (11:45)
== END 2023-03-16 13:15 | disposition home or self-care (01) ==
LOC: CATH 08:00 → SDC 09:46 → CATH 13:15
PROVIDERS: ATTEND Internal Medicine Cardiovascular Disease
DX: I25.10 Atherosclerotic heart disease of native coronary artery without angina pectoris (principal); R07.9 Chest pain, unspecified; I48.0 Paroxysmal atrial fibrillation; I65.23 Occlusion and stenosis of bilateral carotid arteries; M79.605 Pain in left leg; I10 Essential (primary) hypertension; G47.33 Obstructive sleep apnea (adult) (pediatric); I34.0 Nonrheumatic mitral (valve) insufficiency; R00.2 Palpitations; R07.89 Other chest pain; E78.2 Mixed hyperlipidemia; Z79.01 Long term (current) use of anticoagulants; Z79.899 Other long term (current) drug therapy; Z86.718 Personal history of other venous thrombosis and embolism; Z99.81 Dependence on supplemental oxygen; Z86.79 Personal history of other diseases of the circulatory system
CPT/HCPCS: 80053; 80061; 85027; 85610; 85730; 87081; 93005; 93458; C1769; C1894; 36415

== ENCOUNTER → 2023-03-22 | Outpatient (CLI) | payer MEDICARE ==
[~2023-03-22] MED LIST changes: -HEParin (CATH LAB) 2,000 ML IV ONE; -HEParin 1000 UNIT/ML (10ML VIAL) FOR BOLUS ONE; -LIDOCAINE 1% INJ 20 ML VIAL ONE; -MIDAZOLAM INJ 5 MG/5 ML VIAL ONE; -NITRO DRIP 25000 MCG/D5W 250 ML IV ONE; -NS IV 1000 ML 1,000 ML ONE; -VERAPAMIL 5 MG/2 ML (CALAN) VIAL IV ONE; -fentaNYL INJECTION 100 MCG/2 ML VIAL ONE
--- NOTE | 2023-03-22 15:56 | Diagnostic Imaging Report ---
INDICATION: Left hip pain. COMPARISON: None available. TECHNIQUE: 2 radiographs of the left hip dated 03/22/2023. FINDINGS: Moderate degenerative changes involving the pubic symphysis. Mild degenerative changes involving the left sacroiliac joint and partially visualized lower lumbar spine. No acute fracture or dislocation. No destructive osseous process. Mild to moderate degenerative changes of the left hip with joint space narrowing and moderate osteophyte formation. The left femoral head maintains its normal shape and contour. No suspicious radiopaque foreign body. IMPRESSION: No acute osseous abnormality with mild to moderate degenerative changes present, greatest involving the pubic symphysis. Dictated by: Dictated on workstation # [id number]
--- NOTE | 2023-03-22 16:49 | Diagnostic Imaging Report ---
INDICATION: Left knee pain AP, oblique, and lateral views of the left knee are obtained. There are tricompartmental osteoarthritic changes with joint space narrowing and osteophyte formation. There is a small joint effusion. There is no acute fracture IMPRESSION: 1. Degenerative changes of the left knee with joint effusion present. No acute fracture. Dictated by: Dictated on workstation # [id number]
== END ==
LOC: RAD 10:05
PROVIDERS: ATTEND Family Medicine
DX: M17.12 Unilateral primary osteoarthritis, left knee (principal); M25.462 Effusion, left knee; M16.12 Unilateral primary osteoarthritis, left hip
CPT/HCPCS: 73502; 73562

== ENCOUNTER → 2023-06-17 | Outpatient (CLI) | payer MEDICARE ==
[~2023-06-17] MED LIST changes: +IOHEXOL 350 MG/ML 100 ML (OMNIPAQUE 350) VIAL IV ONE; +NS 100 ML (IVPB) BAG IV ONE
[2023-06-17 12:38] LABS: BASOPHILS # (AUTO) 0.1 10^3/uL (0.0-0.1); BASOPHILS % (AUTO) 1 % (0-10); EOSINOPHILS # (AUTO) 0.2 10^3/uL (0.0-0.3); EOSINOPHILS % (AUTO) 2 % (0-10); HEMATOCRIT 43 % (35-52); HEMOGLOBIN 14.4 g/dL (11.5-16.0); LYMPHOCYTES # (AUTO) 2.7 10^3/uL (1.0-4.0); LYMPHOCYTES % (AUTO) 27 % (12-44); MEAN CORPUSCULAR HEMOGLOBIN 30 pg (25-34); MEAN CORPUSCULAR HGB CONC 34 g/dL (32-36); MEAN CORPUSCULAR VOLUME 90 fL (80-99); MEAN PLATELET VOLUME 10.4 fL (9.0-12.2); MONOCYTES # (AUTO) 0.9 10^3/uL (0.0-1.0); MONOCYTES % (AUTO) 9 % (0-12); NEUTROPHILS # (AUTO) 6.3 10^3/uL (1.8-7.8); NEUTROPHILS % (AUTO) 61 % (42-75); PLATELET COUNT 278 10^3/uL (130-400); WHITE BLOOD COUNT 10.2 10^3/uL (4.3-11.0)
[2023-06-17 12:54] LABS: ALBUMIN 4.3 GM/DL (3.2-4.5); POTASSIUM 4.5 MMOL/L (3.6-5.0)
[2023-06-17 12:55] LABS: CALCIUM 9.6 MG/DL (8.5-10.1)
[2023-06-17 12:57] LABS: TOTAL PROTEIN 7.9 GM/DL (6.4-8.2)
[2023-06-17 12:58] LABS: BILIRUBIN,TOTAL 0.5 MG/DL (0.1-1.0)
[2023-06-17 13:00] LABS: CREATININE SERUM 0.78 MG/DL (0.60-1.30)
--- NOTE | 2023-06-17 14:03 | Diagnostic Imaging Report ---
EXAMINATION: CT abdomen and pelvis with intravenous contrast. TECHNIQUE: Multiple contiguous axial images were obtained through the abdomen and pelvis after the uneventful administration of intravenous contrast. All CT scans use one or more of the following dose optimizing techniques: automated exposure control, MA and/or KvP adjustment based on patient size and exam type or iterative reconstruction. HISTORY: Abdominal pain and weight loss COMPARISON: None available. FINDINGS: Lung bases: Bibasilar dependent atelectasis. Solid organs: There is a 2.8 x 1.5 cm lesion within hepatic segment 8 as well as a 2.5 x 1.8 cm lesion within segment 8. There is a 0.5 cm similar-appearing lesion within hepatic segment 7. These demonstrate mild peripheral enhancement with central hypoattenuation. The gallbladder is surgically absent. There is dilation of the biliary tree. The common bile duct measures up to 1.6 cm. There is ill-defined hypoenhancement of the pancreatic head measuring up to 2.1 x 1.8 cm. Adjacent to this is a more hypoattenuating cystic-appearing lesion measuring 1.8 x 1.8 cm. There is atrophy of the pancreatic tail with pancreatic ductal dilatation. Spleen is normal. Adrenal glands are normal. The kidneys are normal without hydronephrosis. Bowel: The stomach and small bowel are normal without obstruction. There is scattered colonic diverticulosis. The appendix is normal. Peritoneum: There is no intraperitoneal free fluid or free air. There is a prominent darius hepatis lymph node measuring 1.5 x 0.9 cm on (series 2 image 53). No other pathologically enlarged lymph nodes are seen. Vasculature: Calcification of the aorta without aneurysm. The common hepatic artery approximates the hypoattenuating lesion in the pancreas without encasement. No involvement of the SMA. There is less than 50% abutment of the portal vein without encasement. No involvement of the SMV. Musculoskeletal: Degenerative changes of the spine without suspicious osseous lesion or compression fracture. Pelvis: The uterus is surgically absent. No adnexal mass. The urinary bladder is normal. IMPRESSION: 1. A suspicious 2.1 cm hypoenhancing lesion within the pancreatic head with atrophy of the pancreatic tail and associated pancreatic ductal dilatation and irregularity. These findings are highly concerning for pancreatic neoplasm such as adenocarcinoma. 2. An adjacent 1.8 cm cystic lesion within the pancreatic body which could represent dilated side branch versus additional mucinous neoplasm such as IPMN. 3. Suspicious hypoenhancing lesions within the liver are concerning for hepatic metastatic disease. 4. Prominent darius hepatis lymph node which could represent esvin metastasis. Report faxed and called to [place] office of Dr. Cintron by chayo at 2:00P.M. Dictated by: Dictated on workstation # [id number]
== END ==
LOC: RAD 12:20
PROVIDERS: ATTEND Family Medicine
DX: K86.2 Cyst of pancreas (principal); R63.4 Abnormal weight loss
CPT/HCPCS: 36415; 74177; 80053; 82150; 83690; 85025

== ENCOUNTER → 2023-07-12 | Outpatient (CLI) | payer MEDICARE ==
[2023-07-12] VITALS (11 sets, daily range): BP systolic 106–153; BP diastolic 55–84
[~2023-07-12] VITALS: Ht 165 cm; Wt 72.0 kg
[~2023-07-12] MED LIST changes: -IOHEXOL 350 MG/ML 100 ML (OMNIPAQUE 350) VIAL IV ONE; +LIDOCAINE 1% INJ 10 ML VIAL INJ ONE; +MIDAZOLAM INJ 2 MG/2 ML VIAL IVP ONE; -NS 100 ML (IVPB) BAG IV ONE; +NS IV 1000 ML 1,000 ML IV STA; +fentaNYL INJECTION 100 MCG/2 ML VIAL IVP ONE
[2023-07-12 09:48] LABS: HEMATOCRIT 40 % (35-52); HEMOGLOBIN 13.5 g/dL (11.5-16.0); MEAN CORPUSCULAR HEMOGLOBIN 30 pg (25-34); MEAN CORPUSCULAR HGB CONC 33 g/dL (32-36); MEAN CORPUSCULAR VOLUME 90 fL (80-99); MEAN PLATELET VOLUME 10.6 fL (9.0-12.2); PLATELET COUNT 234 10^3/uL (130-400); WHITE BLOOD COUNT 8.8 10^3/uL (4.3-11.0)
[2023-07-12 10:00] LABS: PROTHROMBIN TIME PATIENT 13.9 SEC (12.2-14.7)
--- NOTE | 2023-07-12 12:10 | Pre-Op Note & Conscious Sedat ---
Pre-Operative Progress Note Date of Available H&P: Jul 12, 2023 Date H&P Reviewed: Jul 12, 2023 Time H&P Reviewed: 10:00 Pre-Op Diagnosis: liver mass Moderate Sedation PreProcedure Time 11:00 ASA Score 2 Airway Lungs Heart ASA score ASA 1: a normal healthy patient ASA 2: a patient with a mild systemic disease (mid diabetes, controlled hypertension, obesity ASA 3: a patient with a severe systemic disease that limits activity (angina, COPD, prior Myocardial infarction) ASA 4: a patient with an incapacitating disease that is a constant threat to life (CHF, renal failure) ASA 5: a moribund patient not expected to survive 24 hrs. (ruptured aneurysm) ASA 6: a declared brain- patient whose organs are being harvested. For emergent operations, add the letter E after the classification Mallampati Classification Grade 2 Sedation Plan Analgesia, Amnesia, Plan communicated to team members, Discussed options with patient/fam, Discussed risks with patient/fam The patient is an appropriate candidate to undergo the planned procedure, sedation, and anesthesia. The patient immediately re-assessed prior to indication. LUANNE SANCHES MD Jul 12, 2023 12:10
--- NOTE | 2023-07-12 12:37 | Diagnostic Imaging Report ---
INDICATION: Right liver masses. Patient presents for CT-guided biopsy. Patient was brought to the CT suite and placed on table in the supine position. Axial imaging through the abdomen was performed to evaluate appropriate entry site. The right abdomen was prepped and draped in the usual sterile fashion. The procedure was performed utilizing conscious sedation with radiology nursing and constant patient monitoring. Patient was given a total of 50 mcg of fentanyl intravenously. Total procedure time was 9 minutes. An 18-gauge coaxial [place] needle was advanced from a right mid axillary line approach and placed with its tip along the margin of the low-attenuation mass in the medial aspect of the right liver dome. Four core biopsies were obtained. The needle was removed during blood patch injection. Hemostasis was obtained using manual compression. Patient tolerated the procedure well and left the department in stable condition. IMPRESSION: Successful CT-guided right lobe liver mass biopsy utilizing conscious sedation. Pathology results are currently pending. Dictated by: Dictated on workstation # [id number]
== END ==
LOC: RAD 09:17
PROVIDERS: ATTEND Surgery
DX: K86.89 Other specified diseases of pancreas (principal)
CPT/HCPCS: 36415; 77012; 85027; 85610; 85730